=== PATIENT | female | born 1960 | race Caucasian/White ===

== ENCOUNTER 2025-07-16 16:19 | Inpatient (IN) | payer MEDICARE, SELFPAY ==
[2025-07-16] VITALS (8 sets, daily range): BP systolic 122–161; BP diastolic 63–126; BMI 40.4
--- NOTE | 2025-07-16 11:24 | ED.GENMED ---
History of Present Illness
General
Chief Complaint: Flank Pain
Source: patient, records and ambulance crew
Time Seen by Provider: 07/16/25 10:54
History of Present Illness
History of Present Illness:
65-year-old female with past medical history of COPD (on 2 L via nasal cannula chronically), atrial fibrillation, hypertension, hyperlipidemia, CAD, pxm-sajurfl-slrvcebzc diabetes, CLL, previous chronic alcohol use currently residing at [facility] for rehabilitation presenting to the emergency department for a sudden onset of left-sided flank pain that began approximately 2 hours prior to arrival accompanied with some urinary urgency last night but no dysuria or hematuria. Patient was
given Toradol and fentanyl by EMS with complete resolution of her pain. She notes associated nausea with the pain but this is also now resolved. She denies any fevers, chills, rigors, bowel changes although she does have a colostomy to the left
mid abdomen. She states that she has had a urinary tract infection in the past but believes this was when she was 17 or 18 years old. Patient described the pain to be a sharp sudden onset, radiated from the left flank towards the left mid abdomen.
Past History
Past History
ED Past Medical History: Arrthythmia, Asthma, CAD, Cancer, COPD, HTN, Hypercholesterolemia, NIDDM, Hypothyroidism and Psychiatric
ED Past Surgical History: Other (Colostomy)
Social History
Tobacco: Non-smoker
Alcohol: Former
Drug: None
Personal: Single
Living: penitentiary
Employment: Disabled
Review of Systems
Review of Systems
All Other Systems: ROS reviewed and negative except as documented in HPI and ROS
Phy Exam
Physical Exam
Physical Exam:
GENERAL: Alert , in no apparent distress, overweight, appears older than stated age
EYE: clear conjunctiva b/l
HEAD: NCAT
ENT: o/p clr, mmm.
CARDIAC: Regular rate and rhythm .
LUNGS: Clear breath sounds bilaterally, no acute respiratory distress, no wheezes/rales/rhonchi
ABDOMEN: Soft, without focal tenderness, no r/g, no cvat, colostomy to the left mid abdomen without any surrounding erythema, large hernia left abdomen which patient reports is chronic and unchanges. no overlying skin changes
NEUROLOGICAL: Alert and oriented
SKIN: Warm and dry, skin intact.
MUSCULOSKELETAL: No edema, well perfused.
PSYCH: Normal and appropriate interaction.
Scores
Heart Failure Risk
Heart Failure Risk Score: Not Applicable
Heart Score for Chest Pain Patients
STEMI patient?: Not applicable
Withdrawal Assessment of Alcohol
Withdrawal Assessment Completed?: Not applicable
Course
Orders/Labs/Results
Orders:
Orders
07/16/25 11:05
CT Abd/pel Without Iv Or Oral Urgent
Comment:
Reason For Exam: sudden left flank pain
0.9% Sodium Chloride 1000 ml [Nss] 1,000 ml IV BOLUS
07/16/25 11:15
Complete Blood Count/With Diff Urgent
Comprehensive Metabolic Panel Urgent
Lipase Urgent
07/16/25 11:36
Urinalysis Reflex To Culture Urgent
Date Specimen was Collected: 07/16/25
Time Specimen was Collected: 11:29
Urine Microscopic Reflex Cult Urgent
Urine Culture Urgent
GBARIELLA Source: U
Specimen Description:
Date Specimen was Collected: 07/16/25
Time Specimen was Collected: 11:29
07/16/25 12:48
Morphine Sulfate 2 mg .ROUTE .STK-MED ONE
07/16/25 12:54
Morphine Sulfate 2 mg IV NOW STA
07/16/25 15:11
CefTRIAXone [Rocephin] 1,000 mg IV NOW STA
HYDROmorphone [Dilaudid] 1 mg IV NOW STA
07/16/25 15:12
Electrocardiogram (*1) Urgent
Reason for Study: Abdominal Pain
EKG- Treatment ONCE
07/16/25 16:08
Admit/Transfer Patient As Directed
Co-Sign Provider:
Level of Care: Inpatient admission
Assign to:: Medical/Surgical
Physician / Group: sukhi martinez
Diagnosis: pyelonephritis
Reason for Hospitalization: pyelo
Expected length of stay greater than two midnights?: Yes
ELOS- Estimated Length of Stay in days: 3
I certify the patient meets the requirements for IP care: Yes
PRN Pain Medication Management As Directed
May give lesser potent ordered pain med per pt: Yes
preference::
Protocol:: Medication orders for pain may be administered in a
manner that supports deferring to patient preference
when the pt is:
- Requesting an ordered lesser potent pain medication.
Least to most potent pain medications are defined
as: acetaminophen < NSAID < tramadol < opioids
(morphine, oxycodone, hydromorphone).
- Requesting a lesser dose of the same medication IF
ORDERED.
- Requesting a less intrusive route of administration
if both routes are prescribed by the provider (PO <
IV).
07/16/25 16:09
Code Status As Directed
Resuscitation Status: Full Code
07/16/25 16:10
Troponin I Urgent
Abnormal Lab Results
07/16/25 07/16/25
11:15 11:36
RBC 3.99 L 10^6/uL
(4.20-5.40)
MCH 31.1 H pg
(27.0-31.0)
Absolute Monos (auto) 0.7 H 10^3/uL
(0.1-0.6)
Sodium 134 L mmol/L
(135-145)
BUN 18 H mg/dl
(7-17)
Glucose 316 H mg/dl
(70-99)
AST 96 H U/L
(14-36)
ALT 99 H U/L
(0-35)
Total Protein 6.2 L g/dl
(6.3-8.2)
Urine Ketones 1+ A
(Negative)
Ur Occult Blood Reflex 4+ A
(Negative)
Leukocyte Esterase Rfl 2+ A
(Negative)
Urine RBC 80-90 A /HPF
(0-2)
Urine Bacteria (Reflex) Moderate A
(Negative)
Urine Glucose 2+ A
(Negative)
Urine Albumin (Reflex) 3+ A
(Neg - Trace)
07/16/25 11:15
07/16/25 11:15
Vital Signs
Initial and Last Documented VS:
Initial Vital Signs
Temp Pulse Resp BP Pulse Ox
98 F 74 16 122/64 94
07/16/25 10:55 07/16/25 10:55 07/16/25 10:55 07/16/25 10:55 07/16/25 10:55
Last Documented Vital Signs
Temp Pulse Resp BP Pulse Ox
98 F 67 17 129/96 95
07/16/25 10:55 07/16/25 16:45 07/16/25 16:45 07/16/25 16:00 07/16/25 16:45
MDM/Problems Addressed
Differential Diagnosis Includes:
Renal/ureteral colic
Pyelonephritis
Cystitis
Diverticulitis
Pancreatitis
Musculoskeletal back pain
Incarcerated vs strangulated hernia
Atypical ACS presentation
Dissection
GERD/gastritis
MDM/Problems Addressed:
65-year-old female presenting the ER for evaluation of a sudden onset left-sided flank pain accompanied with some urinary symptoms last night, symptoms fully resolved with Toradol and fentanyl by EMS. Patient presently well-appearing and in no
acute distress, hemodynamically stable and reportedly at her baseline. Based off of the sudden onset symptoms combined with the urinary symptoms last night I do suspect renal/ureteral colic to be the most likely diagnosis. Will check labs, urine
and CT imaging. Patient's pain is currently well-controlled will hold off on medications but will treat with IV fluids. Disposition pending.
*Radiology
Radiology exam reviewed: radiology read reviewed
*Pulse Oximetry
SaO2: 94
Nasal Cannula flow liters per minute: 3
Patient hypoxic: no
*EKG
Interpreted by ED Provider?: Yes
Heart Rate: 66
Rate: normal
Rhythm: sinus
Shirley: left axis deviation
*Sap Consultant Interpretation
Rate: normal
Rhythm: sinus
*Critical Care Note
Total Time (30-74mins, 75-104mins- exclusive of procedures): Not Applicable
Data Reviewed
Review of Other/Old Records Reveals: Records
Comment
Comment:
Patient started to have return of pain so an additional 2 mg of morphine ordered for pain control
Patient Management
Discussion with other providers: Hospitalist
Escalation/DeEscalation of care consider admission/obs:
Morphine did initially help patient's pain however pain started to return. CT findings noted for nephrolithiasis but given patient's orthopedic hardware there was artifact that obstructed the UVJ and unable to fully rule out ureteral stone.
Patient had return of pain following the morphine and appears very uncomfortable, questionable UTI. Still question renal/ureteral colic/early pyelonephritis as diagnosis. Given patient is required 3 separate rounds of IV pain medication will admit
for continued pain control and IV antibiotics. Hospitalist team notified and accepts for continued evaluation and treatment.
ED Attending Note
-
Portions of this chart may have been created with voice recognition software.� Occasional wrong word or��sound alike� substitutions may have occurred due to the inherent limitations of voice recognition software.
Discharge Plan
Departure
Patient Disposition: Admit
Date of Disposition: 07/16/25
Time of Disposition: 15:18
Presentation/result/management discussed w/ accepting MD/DO: Hospitalist
Discharge Problem:
Renal colic on left side, Hematuria
Interventions
Interventions:
*Risk Screen - Suicide Last Done: 07/16/25 10:55
*General Assessment Last Done: 07/16/25 10:55
*Neglect/Abuse Screening Last Done: 07/16/25 10:55
*ED- Fall Risk Assessment Last Done: 07/16/25 10:55
*ED COVID-19 Vaccine History Last Done: 07/16/25 10:55
TD-Qmlnga-Cvsiqnepmh Assessment Last Done: 07/16/25 10:55
ED-Female Genitourinary Assessment Last Done: 07/16/25 16:08
[2025-07-16] MEDS: NSS 1000 IV (11:32)
[2025-07-16 11:45] LABS: Urine Character Cloudy (Clear)
[2025-07-16 11:48] LABS: Hematocrit 37.4 % (37.0-47.0); Hemoglobin 12.4 g/dL (12.0-16.0); Mean Corp Hgb Conc. 33.2 g/dL (33.0-37.0); Mean Corpuscular Volume 93.7 fL (81.0-99.0); Nucleated Red Blood Cells % 0 %; Platelet Count 189 10^3/uL (130-400); Red Cell Dist. Width 12.2 % (11.5-14.5)
[2025-07-16 12:02] LABS: Urine Red Blood Cell 80-90 /HPF (0-2); Urine White Cell 0-2 /HPF (0-5)
[2025-07-16 12:07] LABS: ALT (SGPT) 99 U/L (0-35); AST (SGOT) 96 U/L (14-36); Albumin 4.2 g/dl (3.5-5.0); Alkaline Phosphatase 61 U/L (38-126); Blood Urea Nitrogen 18 mg/dl (7-17); Calcium 9.8 mg/dl (8.4-10.2); Carbon Dioxide 30 mmol/L (22-30); Chloride 100 mmol/L (98-107); Estimated Creatinine Clearance 121 ml/min; Glucose 316 mg/dl (70-99); Lipase 88 U/L (23-300); Potassium 4.4 mmol/L (3.5-5.1); Sodium 134 mmol/L (135-145); Total Protein 6.2 g/dl (6.3-8.2); eGFR > 60.00
[2025-07-16] MEDS: MORPHINE SULFATE 2 MG IV (12:54)
--- NOTE | 2025-07-16 15:50 | HPS.HSE ---
Family Physician
-
Family Physician: Skyler Saez
Chief Complaint
-
left flank pain
History of Present Illness
65-year-old female with past medical history of COPD (on 2 L via nasal cannula chronically), atrial fibrillation, hypertension, hyperlipidemia, CAD, nxe-syvwjds-inpmpevlr diabetes, CLL, previous chronic alcohol use currently residing at [facility] for rehabilitation presenting to the emergency department for a sudden onset of left-sided flank pain. patient noted hematuria, urinary urgency and frequency since last night. today she felt the left flank pain associated with nausea.
patient stated blood in the urine. denied fever, chills, chest pain,sob. stated OLIVA. denied dizzy or syncope. denied abdominal diarrhea or vomiting.
Patient received a dose of ceftriaxone, Dilaudid, morphine, normal saline in ER. Admitting for further management
Medical History
Past Medical History
Past Medical History: Reports Other
Additional Past Medical History:
TIA
CLL
COPD
Respiratory failure
Fibrillation
Chron's disease
Diverticulitis
Type 2 diabetes
Hyperlipidemia
Hypertension
Asthma
Anxiety
Past Surgical History: Reports Other
Additional Past Surgical History:
Colostomy
Bilateral hip replacement
Social History
Tobacco: Former Smoker
Alcohol: Former
Drug: None
Living: Care Home
Family History
Family History: Not pertinent
Allergies / Home Medications
Allergies reflects when Allergies were last updated in [facility].
Home Medications with original date entered in [facility]
Allergy/Medication List:
Allergies
Allergy/AdvReac Type Severity Reaction Status Date / Time
No Known Allergies Allergy Unverified 07/16/25 10:55
Review of Systems
-
Constitutional: Reports No Symptoms
EENT: Reports No Symptoms
Respiratory: Reports No Symptoms
Cardiac: Reports No Symptoms
Abdomen/GI: Reports No Symptoms
: Reports Dysuria, Frequency, Flank Pain, Urgency and Other
Musculoskeletal: Reports No Symptoms
Skin: Reports No Symptoms
Neurological: Reports No Symptoms
Endocrine: Reports No Symptoms
Hematologic/Lymphatic: Reports No Symptoms
Psych: Reports No Symptoms
Physical Exam
Vital Signs
Vital Signs
Temp Pulse Resp BP Pulse Ox
98 F 64 19 157/78 97
07/16/25 10:55 07/16/25 14:15 07/16/25 14:15 07/16/25 14:03 07/16/25 14:15
Physical Exam
General: Well Developed, Well Nourished and No Apparent Distress
HEENT: NormoCephalic, Moist mucous membranes and Atraumatic
Respiratory: Clear
Cardiac: S1/S2 and Regular Rhythm; No Murmur or Rub
GI: Soft, Non Tender, Non Distended and Normal Bowel Sounds; No Organomegaly
Rectal: Deferred by Provider
Musculoskeletal: No Clubbing, No Cyanosis and No Edema
Skin: No Rash
Neuro: AO x 3 and Nonfocal/grossly intact
Psych: Calm
Laboratory Results
-
07/16/25 11:15
07/16/25 11:15
Laboratory Results
Total Bilirubin 0.7 mg/dl (0.2-1.3) 07/16/25 11:15
AST 96 U/L (14-36) H 07/16/25 11:15
ALT 99 U/L (0-35) H 07/16/25 11:15
Alkaline Phosphatase 61 U/L (38-126) 07/16/25 11:15
Lipase 88 U/L (23-300) 07/16/25 11:15
Data Reviewed
-
CT Scan: Report Reviewed by me
Lab Data: Labs Reviewed by me
Impression/Plan
-
# Hematuria secondary to early pyelonephritis
- CT abdomen pelvis with impression of Multiple abdominal wall hernias, as described.No evidence of bowel incarceration or obstruction.Left lateral colostomy.No acute inflammatory process within the abdomen or pelvis.1 to 2 mm nonobstructing
intrarenal calculus on the left. No obstructive uropathy.Metal streak artifact related to bilateral hip replacements limits full visualization of the pelvis, including the bladder and ureterovesical junction.Fatty infiltration of liver.Band of
consolidation in the posterior medial left lung base, suggesting segmental and/or subsegmental collapse. Age indeterminate, though felt to be chronic.Nonspecific bilateral prominent inguinal lymph nodes, measuring up to 12 mm short axis. Likely
reactive.No vertebral compression deformity. Degenerative disc disease. Facet arthrosis. Possible subtle old fracture deformity of the S3.Moderate soft tissue stranding and hazy attenuation of the deep subcutaneous fat along the left posterolateral
margin of the abdomen. Exact etiology uncertain. Possible asymmetric edema or deep subcutaneous contusion in the proper clinical setting. No focal collection or abscess.
- IV ceftriaxone continue
- Tylenol as needed for fever or pain
- Dilaudid p.o. for pain
- Urine culture pending
# Transaminitis
- Continue to monitor
# Chronic hypoxic respiratory failure on 2 L baseline
# History of COPD/asthma
- Patient not in acute exacerbation
- Nebs from home continued
-Singulair,prednisone continued
# History of coronary artery disease
# Hypertension/hyperlipidemia
# History of TIA
-statin continued
# Paroxysmal A-fib
- Obtain EKG
-eliquis, sotalol continued
# History of Crohn's/diverticulitis
- Colostomy
# Type 2 diabetes
- Sliding scale
-CHO diet
# DVT prophylaxis
-on eliquis
# CODE STATUS
-full code
[2025-07-16] MEDS: ROCEPHIN 1000 MG IV (16:01)
[2025-07-16] MEDS: DILAUDID 1 MG IV (16:01)
--- NOTE | 2025-07-16 16:05 | W.PN.UPDATE ---
Update Note
Progress Note Update
This note serves as an addendum to the H&P by fence installer foreman HEMA�
Kelli ARINA
HPI
65F from [facility] at [facility] with Lt lateral colostomy, multiple abdominal wall hernias, DM, HX Prx AF on Eliquis, 2 l O2 depedent COPD, HLD, CAD seen at ER:
- sudden onset of left-sided flank pain that began approximately 2 hours prior to arrival
- some urinary urgency last night but no dysuria or hematuria.
- was given Toradol and fentanyl by EMS with complete resolution of her pain.
- associated nausea with the pain but this is also now resolved.
ROS
denies any fevers, chills, rigors, bowel changes although she does have a colostomy to the left mid abdomen.
Vital Signs
Temp Pulse Resp BP Pulse Ox
98 F 64 19 157/78 97
07/16/25 10:55 07/16/25 14:15 07/16/25 14:15 07/16/25 14:03 07/16/25 14:15
PE
Morbidly Obese BMI 41.2
Gen: not toxic
Neck: supple
Lungs: CTA
Cor: RRR S1 s2
Abdomen:�Soft, without focal tenderness, no r/g, no cvat, colostomy to the left mid abdomen
CEILING INSULATION BLOWER: AAO3
MS: no edema
Psych: Normal and appropriate interaction.
Laboratory Tests
07/16/25
11:15
WBC 8.7
Sodium 134 L
BUN 18 H
Creatinine 0.6
eGFR > 60.00
[address]/pel Without Iv Or Oral
- Multiple abdominal wall hernias, as described. No evidence of bowel incarceration or obstruction.
- Left lateral colostomy.
- No acute inflammatory process within the abdomen or pelvis.
- 1 to 2 mm nonobstructing intrarenal calculus on the left. No obstructive uropathy.
- Metal streak artifact related to bilateral hip replacements limits full visualization of the pelvis, including the bladder and ureterovesical junction.
- Fatty infiltration of liver.
- Band of consolidation in the posterior medial left lung base, suggesting segmental and/or subsegmental collapse. Age indeterminate, though felt to be chronic.
- Nonspecific bilateral prominent inguinal lymph nodes, measuring up to 12 mm short axis. Likely reactive.
- No vertebral compression deformity. Degenerative disc disease. Facet arthrosis. Possible subtle old fracture deformity of the S3.
- Moderate soft tissue stranding and hazy attenuation of the deep subcutaneous fat along the left posterolateral margin of the abdomen. Exact etiology uncertain. Possible asymmetric edema or deep subcutaneous contusion in the proper clinical
setting. No focal collection or abscess.
No prior DH or hospitalist admission:
ASSESSMENT & PLAN
Abrupt onset of acute Lt flank pain
Diff origin - Lt Renal colic vs. Inflamed moderate deep soft subcutaneous fat along the left posterolateral abdomen - requiring multiple rounds IV pain Meds
- Urinary urgency + acute left-sided flank pain without tender Lt CVA + Microcoric hematuria with abn UA concerning for complicated UTI
- 1 to 2 mm nonobstructing intrarenal calculus on the left- WITHOUT obstructive uropathy
- NO CT evidence of BWO
- Empiric IV CFTZ and f/u UCx
- PRN pain control: PRN narcotics
HX Prx AF on Eliquis
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
2 l O2 dependent COPD HX
- frequent steroids need
- cont. all OP Meds
Hyperglycemia
DMT2
- c/w ADMINISTRATIVE NURSING SUPERVISOR Meds
- add ISS low
Morbidly Obese BMI 41.2
Known PMX
Chr Oxycodone PRN dependent pain
HLD
CAD
Lt lateral colostomy, multiple abdominal wall hernia
HX Crohn
HX ETOH use disorder
DVT Px: ADMINISTRATIVE NURSING SUPERVISOR Eliquis
Full code
IP MS
[2025-07-16 16:58] LABS: Troponin I < 0.012 ng/ml
[2025-07-16 18:07] LABS: Glucose - Point of Care 190 mg/dl (70-99)
[2025-07-16] MEDS: CRESTOR PO (19:09)
[2025-07-16] MEDS: BETAPACE PO (19:10)
[2025-07-16] MEDS: NOVOLOG FLEXPEN-LOW RESISTANCE 1 UNITS SC (19:12)
[2025-07-16] MEDS: DILAUDID 0.5 MG IV (20:17)
[2025-07-16] MEDS: ZOFRAN 4 MG IV (20:18)
[2025-07-16 21:37] LABS: Glucose - Point of Care 198 mg/dl (70-99)
[2025-07-16] MEDS: ELIQUIS 5 MG PO (22:00)
[2025-07-16] MEDS: SINGULAIR 10 MG PO (22:00)
[2025-07-16] MEDS: TYLENOL 650 MG PO (23:25)
[2025-07-17] MEDS: BETAPACE 80 MG PO ×2 (05:24→17:46)
[2025-07-17] MEDS: ROXICODONE 5 MG PO ×2 (05:26→20:25)
[2025-07-17] MEDS: SYMBICORT 160/4.5 MCG INHALER 2 PUFF INH ×2 (07:19→17:47)
[2025-07-17] MEDS: SPIRIVA RESPIMAT 2.5 MCG 2 PUFF INH (07:19)
[2025-07-17 07:57] LABS: ALT (SGPT) 88 U/L (0-35); AST (SGOT) 85 U/L (14-36); Albumin 3.9 g/dl (3.5-5.0); Alkaline Phosphatase 56 U/L (38-126); Blood Urea Nitrogen 17 mg/dl (7-17); Calcium 9.1 mg/dl (8.4-10.2); Carbon Dioxide 27 mmol/L (22-30); Chloride 103 mmol/L (98-107); Estimated Creatinine Clearance 120 ml/min; Glucose 238 mg/dl (70-99); Potassium 4.5 mmol/L (3.5-5.1); Sodium 137 mmol/L (135-145); Total Protein 5.7 g/dl (6.3-8.2); eGFR > 60.00
[2025-07-17 08:08] LABS: Glucose - Point of Care 205 mg/dl (70-99)
[2025-07-17 08:26] VITALS: BP 110/61
--- NOTE | 2025-07-17 08:46 | W.PN.HOSP.TC ---
Today's Communication/Plan
-
Continue antibiotic, pending culture
Assessment / Plan
Assessment / Plan
Impression:
Patient is a 65-year-old female with past medical history of COPD (on 2 L via nasal cannula chronically), atrial fibrillation, hypertension, hyperlipidemia, CAD, sjt-wsyllam-ehnjiqoib diabetes, CLL, previous chronic alcohol use currently residing at
[facility] for rehabilitation presenting to the emergency department for a sudden onset of left-sided flank pain. patient noted hematuria, urinary urgency and frequency since last night. today she felt the left flank pain associated with nausea.
patient stated blood in the urine. denied fever, chills, chest pain,sob. stated OLIVA. denied dizzy or syncope. denied abdominal diarrhea or vomiting.
Ct abdomen and pelvis showed:
- Multiple abdominal wall hernias, as described.No evidence of bowel incarceration or obstruction.Left lateral colostomy.No acute inflammatory process within the abdomen or pelvis.1 to 2 mm nonobstructing intrarenal calculus on the left. No
obstructive uropathy.Metal streak artifact related to bilateral hip replacements limits full visualization of the pelvis, including the bladder and ureterovesical junction.Fatty infiltration of liver.Band of consolidation in the posterior medial
left lung base, suggesting segmental and/or subsegmental collapse. Age indeterminate, though felt to be chronic.Nonspecific bilateral prominent inguinal lymph nodes, measuring up to 12 mm short axis. Likely reactive.No vertebral compression
deformity. Degenerative disc disease. Facet arthrosis. Possible subtle old fracture deformity of the S3.Moderate soft tissue stranding and hazy attenuation of the deep subcutaneous fat along the left posterolateral margin of the abdomen. Exact
etiology uncertain. Possible asymmetric edema or deep subcutaneous contusion in the proper clinical setting. No focal collection or abscess.
Patient received a dose of ceftriaxone, Dilaudid, morphine, normal saline in ER. Admitting for further management.
Assessment/plan:
Sepsis secondary to pyelonephritis
Patient meets sepsis criteria on admission with fever and tachycardia
Source of infection with urine also patient has hematuria secondary to early pyelonephritis
CT abdomen pelvis done in the ER with multiple chronic finding but no acute finding, see report above.
Continue IV ceftriaxone
Pain and nausea control
Pending urine culture
Transaminitis
- Continue to monitor
Chronic hypoxic respiratory failure on 2 L baseline
History of COPD/asthma
- Patient not in acute exacerbation
- Nebs from home continued
-Singulair,prednisone continued
History of coronary artery disease/hyperlipidemia
Continue statin
History of TIA
-statin continued
History of paroxysmal A-fib
Currently sinus rhythm
-Eliquis, sotalol continued
History of Crohn's/diverticulitis
S/P Colostomy
History of diabetes mellitus
Continue home medication
Insulin sliding scale
Diabetic diet
Hemoglobin A1c 8.4
CODE STATUS: Full code
DVT prophylaxis: Eliquis
Diet: Regular diet
Disposition: Antibiotic, pending culture
Total time spent on today's encounter was 65 minutes which included time spent in counseling the patient/family regarding diagnosis and treatment plan as listed above, goals of care, and symptom management. Case was discussed with nursing staff,
specialists, and care coordinators/case management. All labs and imaging personally reviewed by me. Remainder the time spent in detailed review of previous records, lab data, imaging, and other medical provider documentation.
Anticipated Discharge: 24 - 48 hours
Subjective/Interval History
-
Date of Service: July 17, 2025
Patient seen and examined at bedside, denies any chest pain or shortness of breath, coughing and still complaining of left leg pain, back pain.
Objective Data
-
Labs:
Laboratory Results
07/17/25
05:58
Sodium 137
Potassium 4.5
Chloride 103
Carbon Dioxide 27
BUN 17
Creatinine 0.6
Glucose 238 H
Calcium 9.1
Total Bilirubin 0.7
AST 85 H
ALT 88 H
Alkaline Phosphatase 56
Vital Signs:
Vital Signs
Temp Pulse Resp BP Pulse Ox
98 F 81 23 110/61 96
07/17/25 08:26 07/17/25 08:26 07/17/25 08:26 07/17/25 08:26 07/17/25 08:26
I&O
07/16/25 07/17/25 07/18/25
06:59 06:59 06:59
Intake Total 240 / 240
Balance 240 / 240
Physical Exam
-
General: Well Developed, Well Nourished, No Apparent Distress and Comfortable
HEENT: Normocephalic, Atraumatic, Moist Mucous Membranes, No Ptosis, PERRLA and Nose Appears Normal
Respiratory: Rales, Rhonchi and Non Labored Respirations
Cardiac: Regular Rhythm and S1/S2
Breast: Deferred by me
GI: Soft, Normal Bowel Sounds and Tender (Left flank)
Genito-urinary: No Costovertebral Tender
Musculoskeletal: No Clubbing, No Cyanosis and No Edema
Skin: Warm
Neuro: Awake, Alert, Oriented, AO x 3 and No Motor Deficits
Psych: Calm
Data Reviewed
-
Diagnostic Radiology: Image personally visualized and interpreted and Report Reviewed by me
CT Scan: Image personally visualized and interpreted and Report Reviewed by me
Ultrasound: Image personally visualized and interpreted and Report Reviewed by me
MRI: Image personally visualized and interpreted and Report Reviewed by me
Medical Tests (Nuc Med, Echo etc): Image personally visualized and interpreted and Report Reviewed by me
Labs: Labs Reviewed by me
Old Records: Reviewed
[2025-07-17] MEDS: TIGAN 200 MG IM (09:00)
[2025-07-17] MEDS: DALIRESP 500 MCG PO (09:00)
[2025-07-17] MEDS: ELIQUIS 5 MG PO ×2 (09:00→20:27)
[2025-07-17] MEDS: DELTASONE 5 MG PO (09:00)
[2025-07-17] MEDS: NOVOLOG FLEXPEN-LOW RESISTANCE 2 UNITS SC ×2 (09:09→17:48)
[2025-07-17] MEDS: DILAUDID 0.5 MG IV ×3 (09:17→21:10)
[2025-07-17] MEDS: TYLENOL 650 MG PO ×2 (10:51→18:05)
[2025-07-17 11:55] LABS: Glycohemoglobin (HgbA1c) 8.4 % (4.0-5.6)
[2025-07-17 12:02] LABS: Glucose - Point of Care 259 mg/dl (70-99)
[2025-07-17 12:12] VITALS: BP 98/58
[2025-07-17] MEDS: NOVOLOG FLEXPEN-LOW RESISTANCE 3 UNITS SC (12:38)
[2025-07-17 16:12] VITALS: BP 109/65
[2025-07-17 16:37] LABS: Glucose - Point of Care 221 mg/dl (70-99)
[2025-07-17] MEDS: CRESTOR 10 MG PO (17:46)
[2025-07-17] MEDS: STERILE WATER FOR INJECTION 10 ML IV (17:47)
[2025-07-17] MEDS: ROCEPHIN 1000 MG IV (17:48)
[2025-07-17 19:54] VITALS: BP 114/60
[2025-07-17] MEDS: SINGULAIR 10 MG PO (20:27)
[2025-07-17 21:29] LABS: Glucose - Point of Care 209 mg/dl (70-99)
[2025-07-17 23:47] VITALS: BP 116/62
[2025-07-18 03:25] VITALS: BP 118/60
[2025-07-18] MEDS: BETAPACE 80 MG PO ×2 (05:16→17:23)
[2025-07-18] MEDS: DILAUDID 0.5 MG IV ×4 (05:20→22:24)
[2025-07-18 07:00] VITALS: BP 102/45
[2025-07-18 07:47] LABS: Glucose - Point of Care 190 mg/dl (70-99)
[2025-07-18 07:52] LABS: ALT (SGPT) 86 U/L (0-35); AST (SGOT) 78 U/L (14-36); Albumin 3.5 g/dl (3.5-5.0); Alkaline Phosphatase 54 U/L (38-126); Blood Urea Nitrogen 18 mg/dl (7-17); Calcium 8.7 mg/dl (8.4-10.2); Carbon Dioxide 29 mmol/L (22-30); Chloride 99 mmol/L (98-107); Estimated Creatinine Clearance 120 ml/min; Glucose 191 mg/dl (70-99); Potassium 4.4 mmol/L (3.5-5.1); Sodium 134 mmol/L (135-145); Total Protein 5.4 g/dl (6.3-8.2); eGFR > 60.00
[2025-07-18] MEDS: SPIRIVA RESPIMAT 2.5 MCG 2 PUFF INH (08:15)
[2025-07-18] MEDS: SYMBICORT 160/4.5 MCG INHALER 2 PUFF INH ×2 (08:16→18:05)
[2025-07-18] MEDS: DELTASONE 5 MG PO (08:53)
[2025-07-18] MEDS: DALIRESP 500 MCG PO (08:53)
[2025-07-18] MEDS: ELIQUIS 5 MG PO ×2 (08:53→21:33)
[2025-07-18] MEDS: NOVOLOG FLEXPEN-LOW RESISTANCE 1 UNITS SC (08:54)
[2025-07-18] MEDS: TYLENOL 650 MG PO ×2 (08:58→16:33)
[2025-07-18 11:00] VITALS: BP 109/75
[2025-07-18] MEDS: ROXICODONE 5 MG PO (11:19)
[2025-07-18] MEDS: TIGAN 200 MG IM ×2 (11:20→17:37)
[2025-07-18 11:27] LABS: Hematocrit 37.4 % (37.0-47.0); Hemoglobin 12.0 g/dL (12.0-16.0); Mean Corp Hgb Conc. 32.1 g/dL (33.0-37.0); Mean Corpuscular Volume 97.1 fL (81.0-99.0); Nucleated Red Blood Cells % 0 %; Platelet Count 146 10^3/uL (130-400); Red Cell Dist. Width 12.4 % (11.5-14.5)
--- NOTE | 2025-07-18 11:34 | W.PN.HOSP.TC ---
Today's Communication/Plan
-
Urology consult, x-ray abdomen.
Assessment / Plan
Assessment / Plan
Impression:
Patient is a 65-year-old female with past medical history of COPD (on 2 L via nasal cannula chronically), atrial fibrillation, hypertension, hyperlipidemia, CAD, aom-linhtpq-aixqdwqzf diabetes, CLL, previous chronic alcohol use currently residing at
[facility] for rehabilitation presenting to the emergency department for a sudden onset of left-sided flank pain. patient noted hematuria, urinary urgency and frequency since last night. today she felt the left flank pain associated with nausea.
patient stated blood in the urine. denied fever, chills, chest pain,sob. stated OLIVA. denied dizzy or syncope. denied abdominal diarrhea or vomiting.
Ct abdomen and pelvis showed:
- Multiple abdominal wall hernias, as described.No evidence of bowel incarceration or obstruction.Left lateral colostomy.No acute inflammatory process within the abdomen or pelvis.1 to 2 mm nonobstructing intrarenal calculus on the left. No
obstructive uropathy.Metal streak artifact related to bilateral hip replacements limits full visualization of the pelvis, including the bladder and ureterovesical junction.Fatty infiltration of liver.Band of consolidation in the posterior medial
left lung base, suggesting segmental and/or subsegmental collapse. Age indeterminate, though felt to be chronic.Nonspecific bilateral prominent inguinal lymph nodes, measuring up to 12 mm short axis. Likely reactive.No vertebral compression
deformity. Degenerative disc disease. Facet arthrosis. Possible subtle old fracture deformity of the S3.Moderate soft tissue stranding and hazy attenuation of the deep subcutaneous fat along the left posterolateral margin of the abdomen. Exact
etiology uncertain. Possible asymmetric edema or deep subcutaneous contusion in the proper clinical setting. No focal collection or abscess.
Patient received a dose of ceftriaxone, Dilaudid, morphine, normal saline in ER. Admitting for further management.
Urine culture came back negative but patient still having left flank pain.
urine culture came back negative but the patient still having left flank pain.
X-ray abdomen ordered, urology consult
Assessment/plan:
Sepsis secondary to pyelonephritis
Patient meets sepsis criteria on admission with fever and tachycardia
Source of infection with urine also patient has hematuria secondary to early pyelonephritis
CT abdomen pelvis done in the ER with multiple chronic finding but no acute finding, see report above.
Continue IV ceftriaxone
Pain and nausea control
Pending urine culture
07/18
urine culture came back negative but the patient still having left flank pain.
X-ray abdomen ordered, urology consult
Transaminitis
- Continue to monitor
Chronic hypoxic respiratory failure on 2 L baseline
History of COPD/asthma
- Patient not in acute exacerbation
- Nebs from home continued
-Singulair,prednisone continued
History of coronary artery disease/hyperlipidemia
Continue statin
History of TIA
-statin continued
History of paroxysmal A-fib
Currently sinus rhythm
-Eliquis, sotalol continued
History of Crohn's/diverticulitis
S/P Colostomy
History of diabetes mellitus
Continue home medication
Insulin sliding scale
Diabetic diet
Hemoglobin A1c 8.4
CODE STATUS: Full code
DVT prophylaxis: Eliquis
Diet: Regular diet
Disposition: Urology consult, x-ray abdomen.
Family communication: Discussed with brother at bedside.
Total time spent on today's encounter was 65 minutes which included time spent in counseling the patient/family regarding diagnosis and treatment plan as listed above, goals of care, and symptom management. Case was discussed with nursing staff,
specialists, and care coordinators/case management. All labs and imaging personally reviewed by me. Remainder the time spent in detailed review of previous records, lab data, imaging, and other medical provider documentation.
Anticipated Discharge: > 48 hours
Subjective/Interval History
-
Date of Service: July 18, 2025
Patient seen and examined at bedside, denies any chest pain or shortness of breath, coughing and still complaining of left flank pain, back pain.
Objective Data
-
Labs:
Laboratory Results
07/18/25 07/18/25
06:53 06:54
WBC 5.1
Hgb 12.0
Hct 37.4
Plt Count 146 D
Sodium 134 L
Potassium 4.4
Chloride 99
Carbon Dioxide 29
BUN 18 H
Creatinine 0.6
Glucose 191 H
Calcium 8.7
Total Bilirubin 0.7
AST 78 H
ALT 86 H
Alkaline Phosphatase 54
Vital Signs:
Vital Signs
Temp Pulse Resp BP Pulse Ox
97.8 F 82 20 109/75 97
07/18/25 11:00 07/18/25 11:00 07/18/25 11:00 07/18/25 11:00 07/18/25 11:00
I&O
07/17/25 07/18/25 07/19/25
06:59 06:59 06:59
Intake Total 240 / 240 480 / 480
Balance 240 / 240 480 / 480
Physical Exam
-
General: Well Developed, Well Nourished, No Apparent Distress and Comfortable
HEENT: Normocephalic, Atraumatic, Moist Mucous Membranes, No Ptosis, PERRLA and Nose Appears Normal
Respiratory: Rales, Rhonchi and Non Labored Respirations
Cardiac: Regular Rhythm and S1/S2
Breast: Deferred by me
GI: Soft, Tender (Left flank) and Other (Umbilical hernia, colostomy)
Genito-urinary: No Costovertebral Tender
Musculoskeletal: No Clubbing, No Cyanosis and No Edema
Skin: Warm
Neuro: Awake, Alert, Oriented, AO x 3 and No Motor Deficits
Psych: Anxious
Data Reviewed
-
Diagnostic Radiology: Image personally visualized and interpreted and Report Reviewed by me
CT Scan: Image personally visualized and interpreted and Report Reviewed by me
Ultrasound: Image personally visualized and interpreted and Report Reviewed by me
MRI: Image personally visualized and interpreted and Report Reviewed by me
Medical Tests (Nuc Med, Echo etc): Image personally visualized and interpreted and Report Reviewed by me
Labs: Labs Reviewed by me
Old Records: Reviewed
[2025-07-18 11:52] LABS: Glucose - Point of Care 215 mg/dl (70-99)
[2025-07-18] MEDS: FLUSH (NSS) 2 FLUSH IV (12:52)
[2025-07-18] MEDS: NOVOLOG FLEXPEN-LOW RESISTANCE 2 UNITS SC ×2 (12:55→17:19)
[2025-07-18 15:00] VITALS: BP 116/66
[2025-07-18 16:42] LABS: Glucose - Point of Care 202 mg/dl (70-99)
[2025-07-18] MEDS: CRESTOR 10 MG PO (17:23)
[2025-07-18] MEDS: ROCEPHIN 1000 MG IV (17:23)
[2025-07-18] MEDS: STERILE WATER FOR INJECTION 10 ML IV (17:24)
--- NOTE | 2025-07-18 18:54 | CONS.URO ---
Consultation
-
Date/Time Consultation Performed: 1220 07/18/25
Performing Provider: Peffer
Reason for Consultation: Flank pain
Medical History
History of Present Illness
65F with PMH COPD (on 2 L via nasal cannula chronically), atrial fibrillation, hypertension, hyperlipidemia, CAD, oqe-repxvts-bovzowkqd diabetes, CLL, previous chronic alcohol use currently residing at [facility] for rehabilitation
Presenting to the emergency department for a sudden onset of left-sided flank pain. Patient noted hematuria, urinary urgency and frequency 24hrs prior to admission.
Left flank pain associated with nausea. She denied fever, chills, chest pain
CT scan showed small L renal stones but no hydronephrosis or obstruction
She was admitted for fevers and clinical sepsis
UA was positive for infection
Urine culture 100k mixed jimbo
Over 2 days of treatment she has had persistent L flank/abdominal pain of unclear source
Urology asked to comment
Past Medical History
Past Medical History: Other (as above)
Social History
Tobacco: Non-smoker
Living: Long Term
Family History
Family History: Reviewed & Not Pertinent
Allergies/Home Medications
Allergies
Allergy/AdvReac Type Severity Reaction Status Date / Time
No Known Allergies Allergy Unverified 07/16/25 10:55
Home Medications
�Medication �Instructions �Recorded �Confirmed �Type
Chlorophyll 60 mg PO DAILY Supplement 07/16/25 07/16/25 History
acetaminophen 325 mg tablet 650 mg PO Q4H PRN mild pain 07/16/25 07/16/25 History
albuterol sulfate 90 mcg/actuation 1 inh inhalation R Q8HPRN PRN sob 07/16/25 07/16/25 History
aerosol inhaler
alprazolam 0.25 mg tablet 0.25 mg PO Q83FLUD PRN anxiety 07/16/25 07/16/25 History
apixaban 5 mg tablet (Eliquis) 5 mg PO BID Blood Clot 07/16/25 07/16/25 History
Prevention/Tx
azithromycin 250 mg tablet 250 mg PO MOWEFR Lung/Breathing 07/16/25 07/16/25 History
Issues
bisacodyl 10 mg rectal suppository 10 mg WI DAILYPRN PRN if MOM 07/16/25 07/16/25 History
ineffective
carboxymethylcellulose sodium 0.5 1 drp BOTH EYES TIDPRN PRN dry eyes 07/16/25 07/16/25 History
% eye drops (Refresh Tears)
cholecalciferol (vitamin D3) 25 25 mcg PO DAILY Supplement 07/16/25 07/16/25 History
mcg (1,000 unit) tablet
cyanocobalamin (vitamin B-12) 1,000 mcg PO DAILY Supplement 07/16/25 07/16/25 History
1,000 mcg tablet
fluticasone fur. 200 mcg-umeclid 1 inh inhalation R DAILY 07/16/25 07/16/25 History
62.5 mcg-vilant 25 mcg Lung/Breathing Issues
inhalat.powder (Trelegy Ellipta)
fluticasone propionate 50 1 spray intranasal DAILY PRN 07/16/25 07/16/25 History
mcg/actuation nasal allergies
spray,suspension
guaifenesin 600 mg tablet, 600 mg PO Q12H PRN congestion 07/16/25 07/16/25 History
extended release 12 hr
ibuprofen 200 mg tablet 200 mg PO Q8H PRN mild pain 07/16/25 07/16/25 History
magnesium hydroxide 400 mg/5 mL 30 ml PO DAILY PRN no BM in 3 days 07/16/25 07/16/25 History
oral suspension (Milk of Magnesia)
montelukast 10 mg tablet 10 mg PO HS Allergies 07/16/25 07/16/25 History
oxycodone 5 mg tablet 5 mg PO Q6HPRN PRN moderate pain 07/16/25 07/16/25 History
prednisone 5 mg tablet 5 mg PO DAILY ANTIINFLAMMATION 07/16/25 07/16/25 History
roflumilast 500 mcg tablet 500 mcg PO DAILY ASTHMA 07/16/25 07/16/25 History
rosuvastatin 10 mg tablet 10 mg PO QPM High Cholesterol 07/16/25 07/16/25 History
simethicone 180 mg capsule 180 mg PO DAILYPRN PRN gas 07/16/25 07/16/25 History
sotalol 80 mg tablet 80 mg PO Q12H Arrhythmia 07/16/25 07/16/25 History
therapeutic multivitamin 1 tab PO DAILY Supplement 07/16/25 07/16/25 History
Physical Exam
Vital Signs
Vital Signs
Temp Pulse Resp BP Pulse Ox
97.7 F 66 18 116/66 97
07/18/25 15:00 07/18/25 18:06 07/18/25 18:06 07/18/25 15:00 07/18/25 18:06
Lab / Testing Results
Laboratory Results
07/18/25 06:53
07/18/25 06:54
Physical Exam
General: Well Developed, Well Nourished and Pain
Respiratory: Clear, Non Labored Respirations and Other (on O2)
GI: Soft and Non Tender
Genito-urinary: No Costovertebral Tend
Neuro: AO x 3
Psych: Calm and Intact Judgement
Assessment / Plan
-
65F admitted with fever and sepsis likely due to complicated UTI
Significant L flank pain on admission which has not improved with 2 days on abx
- CTAP shows nonobstructing renal stones, no hydronephrosis. CT scan somewhat limited in eval of distal ureter at the UVJ due to hip prosthesis
- Additional imaging obtained 07/18 with KUB and renal/bladder US, neither of which suggested a distal ureteral stone. No hydronephrosis and b/l urine jets noted on US. No evidence to suggest obstructive uropathy
- L flank pain is most likely due to ascending UTI/pyelopnephritis if not from unrelated other cause
- Flank pain with pyelonephritis is sometimes severe and can take 3-5 days to start improving
- Continue abx course, pain control
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
[2025-07-18 19:00] VITALS: BP 100/59
[2025-07-18 21:49] LABS: Glucose - Point of Care 228 mg/dl (70-99)
[2025-07-18] MEDS: SINGULAIR 10 MG PO (22:13)
[2025-07-18 23:00] VITALS: BP 114/68
[2025-07-19] VITALS (8 sets, daily range): BP systolic 96–133; BP diastolic 54–70; PULSE 71–73; O2SAT 97; BMI 40.4
[2025-07-19] MEDS: DILAUDID 0.5 MG IV ×2 (03:13→07:40)
[2025-07-19] MEDS: BETAPACE 80 MG PO ×2 (05:37→17:29)
[2025-07-19 06:45] LABS: Hematocrit 35.0 % (37.0-47.0); Hemoglobin 11.5 g/dL (12.0-16.0); Mean Corp Hgb Conc. 32.9 g/dL (33.0-37.0); Mean Corpuscular Volume 94.9 fL (81.0-99.0); Platelet Count 131 10^3/uL (130-400); Red Cell Dist. Width 12.2 % (11.5-14.5)
[2025-07-19 07:20] LABS: ALT (SGPT) 74 U/L (0-35); AST (SGOT) 51 U/L (14-36); Albumin 3.4 g/dl (3.5-5.0); Alkaline Phosphatase 61 U/L (38-126); Blood Urea Nitrogen 13 mg/dl (7-17); Calcium 8.6 mg/dl (8.4-10.2); Carbon Dioxide 30 mmol/L (22-30); Chloride 99 mmol/L (98-107); Estimated Creatinine Clearance 120 ml/min; Glucose 174 mg/dl (70-99); Potassium 4.1 mmol/L (3.5-5.1); Sodium 134 mmol/L (135-145); Total Protein 5.3 g/dl (6.3-8.2); eGFR > 60.00
[2025-07-19] MEDS: SPIRIVA RESPIMAT 2.5 MCG 2 PUFF INH (07:34)
[2025-07-19] MEDS: SYMBICORT 160/4.5 MCG INHALER 2 PUFF INH ×2 (07:34→20:32)
[2025-07-19] MEDS: DALIRESP 500 MCG PO (07:37)
[2025-07-19] MEDS: DELTASONE 5 MG PO (07:37)
[2025-07-19] MEDS: ELIQUIS 5 MG PO ×2 (07:37→20:15)
[2025-07-19] MEDS: FLUSH (NSS) 2 FLUSH IV (07:42)
[2025-07-19 08:10] LABS: Glucose - Point of Care 175 mg/dl (70-99)
--- NOTE | 2025-07-19 08:50 | W.PN.URO.CBU ---
Today's Communication / Plan
-
No evidence of obstructive uropathy
Continue treatment for presumed pyelonephritis
Assessment / Plan
-
65F admitted with fever and sepsis likely due to complicated UTI
Significant L flank pain on admission which has not improved despite abx
- CTAP shows nonobstructing renal stones, no hydronephrosis. CT scan somewhat limited in eval of distal ureter at the UVJ due to hip prosthesis
- Additional imaging obtained 07/18 with KUB and renal/bladder US, neither of which suggested a distal ureteral stone. No hydronephrosis and b/l urine jets noted on US. No evidence to suggest obstructive uropathy
- L flank pain is most likely due to ascending UTI/pyelopnephritis, if not from unrelated other cause
- Flank pain with pyelonephritis is sometimes severe and can take 3-5 days to start improving
- Unfortunately urine culture was contaminated so no sensitivity data is available
- Continue abx course, pain control
Diagnosis
-
Date of Service: July 19, 2025
-
Patient Diagnosis:
Flank pain
UTI
Pyelonephritis
Post Op Day:
Subjective
-
persistent intermittent L flank pain moderate to severe
Objective
-
Vital Signs
Temp Pulse Resp BP Pulse Ox
98.0 F 72 18 125/68 96
07/19/25 07:00 07/19/25 07:43 07/19/25 07:43 07/19/25 07:00 07/19/25 07:43
Intake and Output
07/18/25 07/19/25 07/20/25
06:59 06:59 06:59
Intake Total 0 / 2160
Balance 2160 / 2160
Intake:
Oral fluids 2159 / 2159
Other:
Number of approximated MODERATE 4
amounts of urine
Laboratory Results
07/19/25 06:28
07/19/25 06:28
Physical Exam
-
General - well developed, well nourished, no acute distress
Chest - clear, on O2
Abdomen - soft, non-tender
Skin - warm & dry with no rash
Neuro - AOx3, no motor deficits
Extremities - no clubbing, no cyanosis, no edema
[2025-07-19] MEDS: NOVOLOG FLEXPEN-LOW RESISTANCE 1 UNITS SC (09:35)
--- NOTE | 2025-07-19 11:43 | W.PN.HOSP.TC ---
Today's Communication/Plan
-
Still with left flank pain.
Switch Dilaudid to Toradol/oxycodone.
Upgrade to inpatient
Assessment / Plan
Assessment / Plan
Impression:
Patient is a 65-year-old female with past medical history of COPD (on 2 L via nasal cannula chronically), atrial fibrillation, hypertension, hyperlipidemia, CAD, sod-goglrfe-wxewqdasp diabetes, CLL, previous chronic alcohol use currently residing at
[facility] for rehabilitation presenting to the emergency department for a sudden onset of left-sided flank pain. patient noted hematuria, urinary urgency and frequency since last night. today she felt the left flank pain associated with nausea.
patient stated blood in the urine. denied fever, chills, chest pain,sob. stated OLIVA. denied dizzy or syncope. denied abdominal diarrhea or vomiting.
Ct abdomen and pelvis showed:
- Multiple abdominal wall hernias, as described.No evidence of bowel incarceration or obstruction.Left lateral colostomy.No acute inflammatory process within the abdomen or pelvis.1 to 2 mm nonobstructing intrarenal calculus on the left. No
obstructive uropathy.Metal streak artifact related to bilateral hip replacements limits full visualization of the pelvis, including the bladder and ureterovesical junction.Fatty infiltration of liver.Band of consolidation in the posterior medial
left lung base, suggesting segmental and/or subsegmental collapse. Age indeterminate, though felt to be chronic.Nonspecific bilateral prominent inguinal lymph nodes, measuring up to 12 mm short axis. Likely reactive.No vertebral compression
deformity. Degenerative disc disease. Facet arthrosis. Possible subtle old fracture deformity of the S3.Moderate soft tissue stranding and hazy attenuation of the deep subcutaneous fat along the left posterolateral margin of the abdomen. Exact
etiology uncertain. Possible asymmetric edema or deep subcutaneous contusion in the proper clinical setting. No focal collection or abscess.
Patient received a dose of ceftriaxone, Dilaudid, morphine, normal saline in ER. Admitting for further management.
Urine culture came back negative but patient still having left flank pain.
urine culture came back negative but the patient still having left flank pain.
X-ray abdomen ordered, urology consult
Urology recommending ultrasound abdomen, no evidence obstructive uropathy.
Resume acute pyelonephritis.
Continued on IV antibiotics
Assessment/plan:
Sepsis secondary to pyelonephritis
Patient meets sepsis criteria on admission with fever and tachycardia
Source of infection with urine also patient has hematuria secondary to early pyelonephritis
CT abdomen pelvis done in the ER with multiple chronic finding but no acute finding, see report above.
Continue IV ceftriaxone
Pain and nausea control
Pending urine culture
07/18
urine culture came back negative but the patient still having left flank pain.
X-ray abdomen ordered, urology consulted
07/19
Urology recommending ultrasound abdomen:
Limited visualization of the left kidney.
No evidence for pelvicalyceal dilation bilaterally.
Probable bilateral nephrolithiasis.
No focal abnormality urinary bladder.
presumed acute pyelonephritis.
Continued on IV antibiotics
Transaminitis
- Continue to monitor
Chronic hypoxic respiratory failure on 2 L baseline
History of COPD/asthma
- Patient not in acute exacerbation
- Nebs from home continued
-Singulair,prednisone continued
History of coronary artery disease/hyperlipidemia
Continue statin
History of TIA
-statin continued
History of paroxysmal A-fib
Currently sinus rhythm
-Eliquis, sotalol continued
History of Crohn's/diverticulitis
S/P Colostomy
History of diabetes mellitus
Continue home medication
Insulin sliding scale
Diabetic diet
Hemoglobin A1c 8.4
CODE STATUS: Full code
DVT prophylaxis: Eliquis
Diet: Regular diet
Disposition: upgrade to inpatient
Family communication: Discussed with brother at bedside.
Total time spent on today's encounter was 65 minutes which included time spent in counseling the patient/family regarding diagnosis and treatment plan as listed above, goals of care, and symptom management. Case was discussed with nursing staff,
specialists, and care coordinators/case management. All labs and imaging personally reviewed by me. Remainder the time spent in detailed review of previous records, lab data, imaging, and other medical provider documentation.
Anticipated Discharge: Within 24 hours
Subjective/Interval History
-
Date of Service: July 19, 2025
Still with left flank pain.
Switch Dilaudid to Toradol/oxycodone.
Upgrade to inpatient
Objective Data
-
Labs:
Laboratory Results
07/19/25
06:28
WBC 4.0 L
Hgb 11.5 L
Hct 35.0 L
Plt Count 131
Sodium 134 L
Potassium 4.1
Chloride 99
Carbon Dioxide 30
BUN 13
Creatinine 0.5 L
Glucose 174 H
Calcium 8.6
Total Bilirubin 0.7
AST 51 H
ALT 74 H
Alkaline Phosphatase 61
Vital Signs:
Vital Signs
Temp Pulse Resp BP Pulse Ox
97.7 F 71 18 104/61 97
07/19/25 11:00 07/19/25 11:00 07/19/25 11:00 07/19/25 11:00 07/19/25 11:00
I&O
07/18/25 07/19/25 07/20/25
06:59 06:59 06:59
Intake Total 2160 / 2160
Balance 2160 / 2160
Physical Exam
-
General: Well Developed, Well Nourished, No Apparent Distress and Comfortable
HEENT: Normocephalic, Atraumatic, Moist Mucous Membranes, No Ptosis, PERRLA and Nose Appears Normal
Respiratory: Rales, Rhonchi and Non Labored Respirations
Cardiac: Regular Rhythm and S1/S2
Breast: Deferred by me
GI: Soft, Tender (Left flank) and Other (Umbilical hernia, colostomy)
Genito-urinary: No Costovertebral Tender
Musculoskeletal: No Clubbing, No Cyanosis and No Edema
Skin: Warm
Neuro: Awake, Alert, Oriented, AO x 3 and No Motor Deficits
Psych: Anxious
[2025-07-19 12:01] LABS: Glucose - Point of Care 235 mg/dl (70-99)
[2025-07-19] MEDS: NOVOLOG FLEXPEN-LOW RESISTANCE 2 UNITS SC ×2 (12:31→17:21)
[2025-07-19] MEDS: ROXICODONE 5 MG PO ×2 (12:31→20:15)
[2025-07-19] MEDS: TORADOL 15 MG IV ×2 (14:50→22:09)
--- NOTE | 2025-07-19 15:09 | CM ---
Cm continues to follow for discharge planning. PT and OT have evaluated and recommended SNF. Pt is on 2LO2 at baseline.
Pt admitted from [facility]; plan is to move in with her brother when she is able to be more independent.
Plan: Likely return to [facility] for continued rehab to enable her to live with her brother
[2025-07-19 16:50] LABS: Glucose - Point of Care 214 mg/dl (70-99)
[2025-07-19] MEDS: CRESTOR 10 MG PO (17:29)
[2025-07-19] MEDS: STERILE WATER FOR INJECTION 10 ML IV (17:33)
[2025-07-19] MEDS: ROCEPHIN 1000 MG IV (17:33)
[2025-07-19] MEDS: SINGULAIR 10 MG PO (20:15)
[2025-07-19 21:39] LABS: Glucose - Point of Care 292 mg/dl (70-99)
[2025-07-19] MEDS: FLUSH (NSS) 1 FLUSH IV (22:11)
--- NOTE | 2025-07-20 03:13 | DOWNTIME ---
There was a [email or web address] Client [employer] Downtime on 07/20/2025 from 0100 to 07/20/2025 at 0235. Downtime documentation of patient's care, including medication administrations, has been reconciled in the electronic record per guidelines. Refer to the
patient's paper chart under the miscellaneous tab to see printed paper medication records and downtime forms.
[2025-07-20 03:36] VITALS: BP 122/67
--- NOTE | 2025-07-20 05:11 | PTCARENOTE ---
Assumed care of patient at 0300. Assessment unchanged from previous. Telemetry = SR. Observed w/eyes closed, even respirations. Call cavazos w/in reach, able to make needs known.
[2025-07-20 06:00] VITALS: BMI 40.6
[2025-07-20] MEDS: BETAPACE 80 MG PO (06:11)
[2025-07-20] MEDS: ROXICODONE 5 MG PO (06:11)
[2025-07-20 07:00] VITALS: BP 84/59
[2025-07-20] MEDS: SYMBICORT 160/4.5 MCG INHALER 2 PUFF INH (07:28)
[2025-07-20] MEDS: SPIRIVA RESPIMAT 2.5 MCG 2 PUFF INH (07:28)
[2025-07-20 07:39] LABS: Glucose - Point of Care 189 mg/dl (70-99)
[2025-07-20] MEDS: NOVOLOG FLEXPEN-LOW RESISTANCE SC (07:43)
[2025-07-20] MEDS: ELIQUIS 5 MG PO (07:49)
[2025-07-20] MEDS: DELTASONE 5 MG PO (07:49)
[2025-07-20] MEDS: DALIRESP PO ×2 (07:49→07:53)
[2025-07-20 07:51] LABS: Hematocrit 33.6 % (37.0-47.0); Hemoglobin 10.9 g/dL (12.0-16.0); Mean Corp Hgb Conc. 32.4 g/dL (33.0-37.0); Mean Corpuscular Volume 94.6 fL (81.0-99.0); Platelet Count 131 10^3/uL (130-400); Red Cell Dist. Width 12.1 % (11.5-14.5)
[2025-07-20 07:53] VITALS: BP 115/57
[2025-07-20] MEDS: TORADOL 15 MG IV (07:58)
[2025-07-20 08:16] LABS: ALT (SGPT) 72 U/L (0-35); AST (SGOT) 46 U/L (14-36); Albumin 3.2 g/dl (3.5-5.0); Alkaline Phosphatase 64 U/L (38-126); Blood Urea Nitrogen 17 mg/dl (7-17); Calcium 9.3 mg/dl (8.4-10.2); Carbon Dioxide 32 mmol/L (22-30); Chloride 100 mmol/L (98-107); Estimated Creatinine Clearance 120 ml/min; Glucose 195 mg/dl (70-99); Potassium 3.8 mmol/L (3.5-5.1); Sodium 135 mmol/L (135-145); Total Protein 5.1 g/dl (6.3-8.2); eGFR > 60.00
[2025-07-20] MEDS: NOVOLOG FLEXPEN-LOW RESISTANCE 1 UNITS SC (09:25)
[2025-07-20] MEDS: TIGAN 200 MG IM (09:51)
[2025-07-20 11:00] VITALS: BP 117/60
--- NOTE | 2025-07-20 11:07 | W.DCSUMMARY ---
Discharge Summary
Discharge Data
Date of Admission: 07/16/25
Date of Discharge: 07/20/25
Total time spent discharging patient (in min): 40
-
Pending Results: No
Hospital Course
Hospital course
Patient is a 65-year-old female with past medical history of COPD (on 2 L via nasal cannula chronically), atrial fibrillation, hypertension, hyperlipidemia, CAD, ssl-jmiyqqt-zdfuaxdjp diabetes, CLL, previous chronic alcohol use currently residing at
[facility] for rehabilitation presenting to the emergency department for a sudden onset of left-sided flank pain. patient noted hematuria, urinary urgency and frequency since last night. today she felt the left flank pain associated with nausea.
patient stated blood in the urine. denied fever, chills, chest pain,sob. stated OLIVA. denied dizzy or syncope. denied abdominal diarrhea or vomiting.
Ct abdomen and pelvis showed:
- Multiple abdominal wall hernias, as described.No evidence of bowel incarceration or obstruction.Left lateral colostomy.No acute inflammatory process within the abdomen or pelvis.1 to 2 mm nonobstructing intrarenal calculus on the left. No
obstructive uropathy.Metal streak artifact related to bilateral hip replacements limits full visualization of the pelvis, including the bladder and ureterovesical junction.Fatty infiltration of liver.Band of consolidation in the posterior medial
left lung base, suggesting segmental and/or subsegmental collapse. Age indeterminate, though felt to be chronic.Nonspecific bilateral prominent inguinal lymph nodes, measuring up to 12 mm short axis. Likely reactive.No vertebral compression
deformity. Degenerative disc disease. Facet arthrosis. Possible subtle old fracture deformity of the S3.Moderate soft tissue stranding and hazy attenuation of the deep subcutaneous fat along the left posterolateral margin of the abdomen. Exact
etiology uncertain. Possible asymmetric edema or deep subcutaneous contusion in the proper clinical setting. No focal collection or abscess.
Patient received a dose of ceftriaxone, Dilaudid, morphine, normal saline in ER. Admitting for further management.
Urine culture came back negative but patient still having left flank pain.
urine culture came back negative but the patient still having left flank pain.
X-ray abdomen ordered, urology consult
Urology recommending ultrasound abdomen, no evidence obstructive uropathy.
Resume acute pyelonephritis.
Continued on IV antibiotics
To be discharged back to SNF on oral antibiotics, Toradol in addition of her home oxycodone.
During hospitalization patient was treated from the following
Sepsis secondary to pyelonephritis
Patient meets sepsis criteria on admission with fever and tachycardia
Source of infection with urine also patient has hematuria secondary to early pyelonephritis
CT abdomen pelvis done in the ER with multiple chronic finding but no acute finding, see report above.
Continue IV ceftriaxone
Pain and nausea control
Pending urine culture
07/18
urine culture came back negative but the patient still having left flank pain.
X-ray abdomen ordered, urology consulted
07/19
Urology recommending ultrasound abdomen:
Limited visualization of the left kidney.
No evidence for pelvicalyceal dilation bilaterally.
Probable bilateral nephrolithiasis.
No focal abnormality urinary bladder.
presumed acute pyelonephritis.
Continued on IV antibiotics
07/19
To be discharged back to SNF on oral antibiotics, Zofran, Toradol in addition of her home oxycodone.
Transaminitis
- Continue to monitor
Chronic hypoxic respiratory failure on 2 L baseline
History of COPD/asthma
- Patient not in acute exacerbation
- Nebs from home continued
-Singulair,prednisone continued
History of coronary artery disease/hyperlipidemia
Continue statin
History of TIA
-statin continued
History of paroxysmal A-fib
Currently sinus rhythm
-Eliquis, sotalol continued
History of Crohn's/diverticulitis
S/P Colostomy
History of diabetes mellitus
Continue home medication
Insulin sliding scale
Diabetic diet
Hemoglobin A1c 8.4
CODE STATUS: Full code
DVT prophylaxis: Eliquis
Diet: Regular diet
Disposition: dc
Family communication: Discussed with brother at bedside.
Total time spent on today's encounter was 40 minutes which included time spent in counseling the patient/family regarding diagnosis and treatment plan as listed above, goals of care, and symptom management. Case was discussed with nursing staff,
specialists, and care coordinators/case management. All labs and imaging personally reviewed by me. Remainder the time spent in detailed review of previous records, lab data, imaging, and other medical provider documentation.
Anticipated Discharge: Today
Discharge Plan
-
Patient Disposition: Half-Way/SNF
Discharge Diagnosis/Procedures: Sepsis secondary to pyelonephritis
Transaminitis.
Chronic hypoxic respiratory failure on 2 L baseline
Diet: As tolerated and Regular
Activity: With assistance and As tolerated
Referrals:
Skyler Saez MD [Family Provider]
Abiodun Gabriel MD [Active, Urology] - in one to two weeks
Prescriptions:
New
cefuroxime axetil 500 mg tablet
500 mg PO BID 5 Days Qty: 10 0RF
ketorolac 10 mg tablet
10 mg PO Q6H PRN (Reason: Pain) 5 Days Qty: 20 0RF
Continued
acetaminophen 325 mg Tablet
650 mg PO Q4H PRN (Reason: mild pain)
azithromycin 250 mg tablet
250 mg PO MOWEFR
simethicone 180 mg Capsule
180 mg PO DAILYPRN PRN (Reason: gas)
sotalol 80 mg tablet
80 mg PO Q12H
prednisone 5 mg tablet
5 mg PO DAILY
cyanocobalamin (vitamin B-12) 1,000 mcg Tablet
1,000 mcg PO DAILY
therapeutic multivitamin Tablet
1 tab PO DAILY
alprazolam 0.25 mg tablet
0.25 mg PO [id number] PRN (Reason: anxiety)
magnesium hydroxide [Milk of Magnesia] 400 mg/5 mL Suspension
30 ml PO DAILY PRN (Reason: no BM in 3 days)
Rx Instructions:
give at bedtime
carboxymethylcellulose sodium [Refresh Tears] 0.5 % Drops
1 drp BOTH EYES TIDPRN PRN (Reason: dry eyes)
bisacodyl 10 mg Suppository
10 mg IN DAILYPRN PRN (Reason: if MOM ineffective)
montelukast 10 mg tablet
10 mg PO HS
albuterol sulfate 90 mcg/actuation HFA aerosol inhaler
1 inh INHALATION R Q8HPRN PRN (Reason: sob)
fluticasone propionate 50 mcg/actuation [place],Suspension
1 spray intranasal DAILY PRN (Reason: allergies)
oxycodone 5 mg tablet
5 mg PO Q6HPRN PRN (Reason: moderate pain)
rosuvastatin 10 mg tablet
10 mg PO QPM
cholecalciferol (vitamin D3) 25 mcg (1,000 unit) Tablet
25 mcg PO DAILY
roflumilast 500 mcg tablet
500 mcg PO DAILY
Eliquis 5 mg tablet
5 mg PO BID
guaifenesin 600 mg Tablet Extended Release 12hr
600 mg PO Q12H PRN (Reason: congestion)
Trelegy Ellipta 200-62.5-25 mcg blister with device
1 inh INHALATION R DAILY
Chlorophyll
60 mg PO DAILY
Discontinued
ibuprofen 200 mg Tablet
200 mg PO Q8H PRN (Reason: mild pain)
Discharge Orders:
Discharge Patient (As Directed); Ordered 07/20/25
Ordered By: Madelin Ernst
Discharge Date and Time
Print Language: KYRGYZ
--- NOTE | 2025-07-20 11:07 | W.PN.HOSP.TC ---
Today's Communication/Plan
-
To be discharged back to SNF on oral antibiotics, Zofran, Toradol in addition of her home oxycodone.
Assessment / Plan
Assessment / Plan
Impression:
Patient is a 65-year-old female with past medical history of COPD (on 2 L via nasal cannula chronically), atrial fibrillation, hypertension, hyperlipidemia, CAD, ssr-pbrqsiw-laotnfbgd diabetes, CLL, previous chronic alcohol use currently residing at
[facility] for rehabilitation presenting to the emergency department for a sudden onset of left-sided flank pain. patient noted hematuria, urinary urgency and frequency since last night. today she felt the left flank pain associated with nausea.
patient stated blood in the urine. denied fever, chills, chest pain,sob. stated OLIVA. denied dizzy or syncope. denied abdominal diarrhea or vomiting.
Ct abdomen and pelvis showed:
- Multiple abdominal wall hernias, as described.No evidence of bowel incarceration or obstruction.Left lateral colostomy.No acute inflammatory process within the abdomen or pelvis.1 to 2 mm nonobstructing intrarenal calculus on the left. No
obstructive uropathy.Metal streak artifact related to bilateral hip replacements limits full visualization of the pelvis, including the bladder and ureterovesical junction.Fatty infiltration of liver.Band of consolidation in the posterior medial
left lung base, suggesting segmental and/or subsegmental collapse. Age indeterminate, though felt to be chronic.Nonspecific bilateral prominent inguinal lymph nodes, measuring up to 12 mm short axis. Likely reactive.No vertebral compression
deformity. Degenerative disc disease. Facet arthrosis. Possible subtle old fracture deformity of the S3.Moderate soft tissue stranding and hazy attenuation of the deep subcutaneous fat along the left posterolateral margin of the abdomen. Exact
etiology uncertain. Possible asymmetric edema or deep subcutaneous contusion in the proper clinical setting. No focal collection or abscess.
Patient received a dose of ceftriaxone, Dilaudid, morphine, normal saline in ER. Admitting for further management.
Urine culture came back negative but patient still having left flank pain.
urine culture came back negative but the patient still having left flank pain.
X-ray abdomen ordered, urology consult
Urology recommending ultrasound abdomen, no evidence obstructive uropathy.
Resume acute pyelonephritis.
Continued on IV antibiotics
To be discharged back to SNF on oral antibiotics, Zofran, Toradol in addition of her home oxycodone.
Assessment/plan:
Sepsis secondary to pyelonephritis
Patient meets sepsis criteria on admission with fever and tachycardia
Source of infection with urine also patient has hematuria secondary to early pyelonephritis
CT abdomen pelvis done in the ER with multiple chronic finding but no acute finding, see report above.
Continue IV ceftriaxone
Pain and nausea control
Pending urine culture
07/18
urine culture came back negative but the patient still having left flank pain.
X-ray abdomen ordered, urology consulted
07/19
Urology recommending ultrasound abdomen:
Limited visualization of the left kidney.
No evidence for pelvicalyceal dilation bilaterally.
Probable bilateral nephrolithiasis.
No focal abnormality urinary bladder.
presumed acute pyelonephritis.
Continued on IV antibiotics
07/19
To be discharged back to SNF on oral antibiotics, Zofran, Toradol in addition of her home oxycodone.
Transaminitis
- Continue to monitor
Chronic hypoxic respiratory failure on 2 L baseline
History of COPD/asthma
- Patient not in acute exacerbation
- Nebs from home continued
-Singulair,prednisone continued
History of coronary artery disease/hyperlipidemia
Continue statin
History of TIA
-statin continued
History of paroxysmal A-fib
Currently sinus rhythm
-Eliquis, sotalol continued
History of Crohn's/diverticulitis
S/P Colostomy
History of diabetes mellitus
Continue home medication
Insulin sliding scale
Diabetic diet
Hemoglobin A1c 8.4
CODE STATUS: Full code
DVT prophylaxis: Eliquis
Diet: Regular diet
Disposition: dc
Family communication: Discussed with brother at bedside.
Total time spent on today's encounter was 65 minutes which included time spent in counseling the patient/family regarding diagnosis and treatment plan as listed above, goals of care, and symptom management. Case was discussed with nursing staff,
specialists, and care coordinators/case management. All labs and imaging personally reviewed by me. Remainder the time spent in detailed review of previous records, lab data, imaging, and other medical provider documentation.
Anticipated Discharge: Today
Subjective/Interval History
-
Date of Service: July 20, 2025
Still with left flank pain, negative culture
Objective Data
-
Labs:
Laboratory Results
07/20/25
07:28
WBC 3.2 L
Hgb 10.9 L
Hct 33.6 L
Plt Count 131
Sodium 135
Potassium 3.8
Chloride 100
Carbon Dioxide 32 H
BUN 17
Creatinine 0.6
Glucose 195 H
Calcium 9.3
Total Bilirubin 0.6
AST 46 H
ALT 72 H
Alkaline Phosphatase 64
Vital Signs:
Vital Signs
Temp Pulse Resp BP Pulse Ox
97.8 F 64 18 115/57 95
07/20/25 07:00 07/20/25 07:53 07/20/25 07:33 07/20/25 07:53 07/20/25 07:33
I&O
07/19/25 07/20/25 07/21/25
06:59 06:59 06:59
Intake Total 2159 / 2160 1080 / 1080
Balance 0 / 2160 1080 / 1080
Physical Exam
-
General: Well Developed, Well Nourished, No Apparent Distress and Comfortable
HEENT: Normocephalic, Atraumatic, Moist Mucous Membranes, No Ptosis, PERRLA and Nose Appears Normal
Respiratory: Rales, Rhonchi and Non Labored Respirations
Cardiac: Regular Rhythm and S1/S2
Breast: Deferred by me
GI: Soft, Tender (Left flank) and Other (Umbilical hernia, colostomy)
Genito-urinary: No Costovertebral Tender
Musculoskeletal: No Clubbing, No Cyanosis and No Edema
Skin: Warm
Neuro: Awake, Alert, Oriented, AO x 3 and No Motor Deficits
Psych: Anxious
[2025-07-20 11:47] LABS: Glucose - Point of Care 340 mg/dl (70-99)
[2025-07-20 13:57] LABS: Glucose - Point of Care 311 mg/dl (70-99)
--- NOTE | 2025-07-20 14:24 | CM ---
Addendum entered by RADHA Cesar 07/20/25 14:57:
Patient requested that her brother Jameel be updated. Placed a call to Jameel to update. He is agreeable to plan.
Original Note:
Received notification that patient is medically cleared for discharge. Spoke with patient, reviewed IMM. She had no concerns about discharge. She was made aware of recommendation from PT for SNF. She was agreeable to indication. Placed a call to
Helen in admissions at [facility] who confirmed ability to accept patient to rehab. # For report [phone] and fax# [phone]
Medical necessity and transfer sheet provided to [facility] community support specialist for transfer.
Plan: Case management will continue to follow and assist with discharge planning. [facility].
[2025-07-20] MEDS: NOVOLOG FLEXPEN-LOW RESISTANCE 4 UNITS SC (14:40)
[2025-07-20 14:41] VITALS: BP 141/64
== END 2025-07-20 15:17 | DRG 872 ==
LOC: 3 WEST ACU 16:19
PROVIDERS: Physician Assistant Medical; Registered Nurse; ADMITTING PHYSICIAN Internal Medicine; ATTENDING PHYSICIAN General Practice; CONSULT PHYSICIAN Urology; EMERGENCY PHYSICIAN Student in an Organized Health Care Education/Training Program; FAMILY PHYSICIAN Internal Medicine
DX: A41.9 Sepsis, unspecified organism (principal); N10 Acute pyelonephritis; J96.11 Chronic respiratory failure with hypoxia; K50.90 Crohn's disease, unspecified, without complications; C91.10 Chronic lymphocytic leukemia of B-cell type not having achieved remission; Z68.41 Body mass index [BMI] 40.0-44.9, adult; F41.9 Anxiety disorder, unspecified; Z79.01 Long term (current) use of anticoagulants; Z86.73 Personal history of transient ischemic attack (TIA), and cerebral infarction without residual deficits; I48.0 Paroxysmal atrial fibrillation; I25.10 Atherosclerotic heart disease of native coronary artery without angina pectoris; J44.89 Other specified chronic obstructive pulmonary disease; N20.0 Calculus of kidney; Z93.3 Colostomy status; K43.9 Ventral hernia without obstruction or gangrene; Z96.643 Presence of artificial hip joint, bilateral; K76.0 Fatty (change of) liver, not elsewhere classified; I10 Essential (primary) hypertension; Z87.891 Personal history of nicotine dependence; E11.65 Type 2 diabetes mellitus with hyperglycemia; E03.9 Hypothyroidism, unspecified; E66.01 Morbid (severe) obesity due to excess calories; E78.00 Pure hypercholesterolemia, unspecified; Z87.440 Personal history of urinary (tract) infections; Z99.81 Dependence on supplemental oxygen
CPT/HCPCS: 74018; 74176; 76770; 80053; 81003; 81015; 82962; 83036; 83690; 84484; 85025; 85027; 87070; 87086; 93005; 94640; 96361; 96374; 96375; 97163; 97167; 99285

== ENCOUNTER 2025-08-21 06:19 | Inpatient (IN) | payer MEDICARE, MEDICAID, SELFPAY ==
[2025-08-21] VITALS (12 sets, daily range): BP systolic 89–126; BP diastolic 51–78; BMI 41.4
[2025-08-21 01:53] LABS: Hematocrit 36.4 % (37.0-47.0); Hemoglobin 12.1 g/dL (12.0-16.0); Mean Corp Hgb Conc. 33.2 g/dL (33.0-37.0); Mean Corpuscular Volume 90.8 fL (81.0-99.0); Nucleated Red Blood Cells % 0 %; Platelet Count 179 10^3/uL (130-400); Red Cell Dist. Width 12.4 % (11.5-14.5)
[2025-08-21 02:19] LABS: ALT (SGPT) 22 U/L (0-35); AST (SGOT) 18 U/L (14-36); Albumin 3.9 g/dl (3.5-5.0); Alkaline Phosphatase 52 U/L (38-126); Blood Urea Nitrogen 10 mg/dl (7-17); Calcium 9.0 mg/dl (8.4-10.2); Carbon Dioxide 29 mmol/L (22-30); Chloride 96 mmol/L (98-107); Estimated Creatinine Clearance 121 ml/min; Glucose 280 mg/dl (70-99); Lipase 48 U/L (23-300); Potassium 4.6 mmol/L (3.5-5.1); Sodium 130 mmol/L (135-145); Total Protein 6.2 g/dl (6.3-8.2); eGFR > 60.00
[2025-08-21] MEDS: NSS 1000 IV ×3 (03:35→20:10)
[2025-08-21] MEDS: DILAUDID 1 MG IV (03:35)
[2025-08-21] MEDS: MORPHINE SULFATE 4 MG IV (04:52)
[2025-08-21] MEDS: ZOSYN 100 IV (04:53)
--- NOTE | 2025-08-21 05:12 | ED.GENMED ---
History of Present Illness
General
Chief Complaint: Abdominal Pain
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 Treated for potential pyelonephritis versus recently passed kidney stone)
Exam Limitations: none
Time Seen by Provider: 08/21/25 03:04
Nursing documentation reviewed up to this point in time: agreed with
History of Present Illness
History of Present Illness:
This is a 65-year-old woman with history of COPD, chronic O2 dependence at 2 L, A-fib chronically maintained on Eliquis, hypertension, hyperlipidemia, CAD, ipo-gtxlrle-qidtlqvej diabetes, CLL, history of diverticulitis with perforation with chronic
left lower quadrant colostomy. She also has chronic left lower quadrant abdominal wall hernia. She has chronic low back pain, narcotic dependent. Recently transferred from [place] to this area early July and was hospitalized here 1 month ago
with complaints of acute left flank pain, thought to be related to pyelonephritis versus recently passed kidney stone.
She has morbid obesity, chronic ambulatory dysfunction. 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
She presents via EMS with complaints of left lower quadrant abdominal pain that began yesterday, progressive throughout the day. At first she thought that she was constipated with decreased stool output in colostomy and took a dose of magnesium
with some improvement in stool output but she continues with left lower quadrant pain, much worse tonight with palpable heat and redness to her left lower abdominal wall. She has not had a fever nor chills. Current left lower quadrant pain feels
quite different from left flank pain for which she presented 1 month ago. She currently denies flank pain. No dysuria and urgency and or hematuria.
Past History
Past History
ED Past Medical History: Arrthythmia (Atrial fibrillation), Asthma, CAD, Cancer (CLL), COPD (Chronically O2 dependent), HTN, Hypercholesterolemia, NIDDM, Hypothyroidism, Psychiatric, Other (Chronic low back pain-narcotic dependent. Chronic
ambulatory dysfunction) and Other (Diverticulitis with perforation requiring colostomy 2021)
ED Past Surgical History: Other (Colostomy)
Social History
Tobacco: Non-smoker
Alcohol: Former
Drug: None
Personal: Single
Living: detention
Employment: Disabled
Family History
Family History: Other (Noncontributory)
Phy Exam
Physical Exam
Physical Exam:
GENERAL: 65-year-old obese woman appears her stated age. She is awake and alert, appears in mild distress but easily communicative. Afebrile. Hair is recently dyed purple.
EYE: anicteric
NECK: Supple, nontender, no meningismus, no significant adenopathy.
ENT: oral mucosa is moist. No rhinorrhea.
CARDIAC: Regular rate and rhythm. no murmur.
LUNGS: Clear breath sounds bilaterally, no acute respiratory distress, no wheezes/rales/rhonchi
ABDOMEN: Rotund, soft, nondistended, left lower quadrant colostomy with soft stool within the bag. There is a large ventral hernia left lower quadrant with moderate erythema left lower abdomen that is significantly tender to palpation, moderately
warm to touch. no r/g, no cvat. normoactive BS.
NEUROLOGICAL: Alert and oriented x3, no focal neuro deficits.
SKIN: Warm and dry, skin intact. Left lower quadrant abdominal wall erythema that is warm to touch, moderately tender to touch.
MUSCULOSKELETAL: Lymphedema bilateral lower extremities. Peripheral pulses are full and equal b/l. No palpable tenderness.
PSYCH: Normal and appropriate interaction.
Course
Orders/Labs/Results
Orders:
Orders
08/21/25 01:38
IV Insert/Care/Rem.- Treatment PRN
Urinalysis Reflex To Culture Urgent
Date Specimen was Collected: 08/21/25
Time Specimen was Collected: 01:38
08/21/25 01:40
Complete Blood Count/With Diff Urgent
Comprehensive Metabolic Panel Urgent
Lactic Acid Urgent
Lipase Urgent
08/21/25 03:29
0.9% Sodium Chloride 1000 ml [Nss] 1,000 ml IV BOLUS
HYDROmorphone [Dilaudid] 1 mg IV NOW STA
08/21/25 03:30
CT Abd/pelvis W Iv Cont Urgent
Comment:
Reason For Exam: LLQ pain, abd wall redness
08/21/25 04:44
Morphine Sulfate 4 mg IV NOW STA
Piperacillin/Tazo 4.5 Gram [Zosyn] 4.5 gram in 100 ml IV NOW
Abnormal Lab Results
08/21/25
01:40
WBC 12.2 H 10^3/uL
(4.8-10.8)
RBC 4.01 L 10^6/uL
(4.20-5.40)
Hct 36.4 L %
(37.0-47.0)
Absolute Neuts (auto) 8.4 H 10^3/uL
(1.4-6.5)
Absolute Monos (auto) 1.1 H 10^3/uL
(0.1-0.6)
Lymphocytes % 20.4 L %
(20.5-51.1)
Sodium 130 L mmol/L
(135-145)
Chloride 96 L mmol/L
(98-107)
Glucose 280 H mg/dl
(70-99)
Total Protein 6.2 L g/dl
(6.3-8.2)
08/21/25 01:40
08/21/25 01:40
Vital Signs
Initial and Last Documented VS:
Initial Vital Signs
Temp Pulse Resp BP Pulse Ox
98.6 F 81 16 121/78 94
08/21/25 01:25 08/21/25 01:25 08/21/25 01:25 08/21/25 01:25 08/21/25 01:25
Last Documented Vital Signs
Temp Pulse Resp BP Pulse Ox
98.6 F 77 10 126/74 91
08/21/25 01:25 08/21/25 04:30 08/21/25 03:30 08/21/25 04:27 08/21/25 04:30
MDM/Problems Addressed
Differential Diagnosis Includes:
The Differential Diagnosis includes, in no particular order and is not limited to:
- Cellulitis
- Diverticulitis
- Abdominal abscess
- Infected colostomy site
- Chronic Lymphocytic Leukemia flare
- Mesenteric ischemia
- Bowel obstruction
- Pyoderma gangrenosum
- Necrotizing fasciitis
- Erythema nodosum
MDM/Problems Addressed:
Acute:
- Cellulitis of the abdominal wall
-Acute left lower quadrant abdominal pain
Chronic:
- Chronic Lymphocytic Leukemia
- Chronic Obstructive Pulmonary Disease
- Chronic pain syndrome�narcotic dependent
- History of diverticulitis
- History of A-fib, chronically maintained on Eliquis
Will medicate for pain, initiate IV fluids.
Labs thus far reveal mildly elevated white blood cell count of 12.2, mild hyponatremia of 130, elevated random glucose of 280. Lactic acid is normal at 1.3.
Will check CT abdomen pelvis.
Will plan initiate IV fluids for what I suspect is left lower quadrant abdominal wall cellulitis.
Due to multiple comorbidities, potential for immunosuppression with CLL, diabetes, patient will require IV antibiotic initiation and hospital admission.
Chronic conditions affecting care: DM, CAD, Arrhythmia and Psychiatric illness
*Radiology
Radiology exam reviewed: radiology read reviewed
*Pulse Oximetry
SaO2: 91
Nasal Cannula flow liters per minute: 2
Oxygen Mode of Delivery: Room air
Patient hypoxic: no
*Critical Care Note
Total Time (30-74mins, 75-104mins- exclusive of procedures): Not Applicable
Patient Management
Social determinants of health affecting care: Living situation (The patient appears to require ongoing rehabilitation support, currently residing at a rehabilitation facility, with limited ability to perform certain activities of daily living
independently.)
ED Attending Note
-
Portions of this chart may have been created with voice recognition software.� Occasional wrong word or��sound alike� substitutions may have occurred due to the inherent limitations of voice recognition software.
Discharge Plan
Departure
Patient Disposition: Admit
Date of Disposition: 08/21/25
Time of Disposition: 05:26
Admit to: Med/Surg
Admit to doctor: Tavon
Presentation/result/management discussed w/ accepting MD/DO: Hospitalist
Condition: Fair
Discharge Problem:
Abdominal wall cellulitis
Prescriptions:
No Action
acetaminophen 325 mg Tablet
650 mg PO Q4H PRN (Reason: mild pain)
azithromycin 250 mg tablet
250 mg PO MOWEFR
simethicone 180 mg Capsule
180 mg PO DAILYPRN PRN (Reason: gas)
sotalol 80 mg tablet
80 mg PO Q12H
prednisone 5 mg tablet
5 mg PO DAILY
cyanocobalamin (vitamin B-12) 1,000 mcg Tablet
1,000 mcg PO DAILY
therapeutic multivitamin Tablet
1 tab PO DAILY
alprazolam 0.25 mg tablet
0.25 mg PO [id number] PRN (Reason: anxiety)
magnesium hydroxide [Milk of Magnesia] 400 mg/5 mL Suspension
30 ml PO DAILY PRN (Reason: no BM in 3 days)
Rx Instructions:
give at bedtime
carboxymethylcellulose sodium [Refresh Tears] 0.5 % Drops
1 drp BOTH EYES TIDPRN PRN (Reason: dry eyes)
bisacodyl 10 mg Suppository
10 mg [place] DAILYPRN PRN (Reason: if MOM ineffective)
montelukast 10 mg tablet
10 mg PO HS
albuterol sulfate 90 mcg/actuation HFA aerosol inhaler
1 inh INHALATION R Q8HPRN PRN (Reason: sob)
fluticasone propionate 50 mcg/actuation [place],Suspension
1 spray intranasal DAILY PRN (Reason: allergies)
oxycodone 5 mg tablet
5 mg PO Q6HPRN PRN (Reason: moderate pain)
rosuvastatin 10 mg tablet
10 mg PO QPM
cholecalciferol (vitamin D3) 25 mcg (1,000 unit) Tablet
25 mcg PO DAILY
roflumilast 500 mcg tablet
500 mcg PO DAILY
Eliquis 5 mg tablet
5 mg PO BID
guaifenesin 600 mg Tablet Extended Release 12hr
600 mg PO Q12H PRN (Reason: congestion)
Trelegy Ellipta 200-62.5-25 mcg blister with device
1 inh INHALATION R DAILY
Chlorophyll
60 mg PO DAILY
cefuroxime axetil 500 mg tablet
500 mg PO BID 5 Days Qty: 10 0RF
ketorolac 10 mg tablet
10 mg PO Q6H PRN (Reason: Pain) 5 Days Qty: 20 0RF
Referrals:
NONE,* [Family Provider, Internal Medicine]
Interventions
Interventions:
*Risk Screen - Suicide Last Done: 08/21/25 01:25
*General Assessment Last Done: 08/21/25 01:25
*Neglect/Abuse Screening Last Done: 08/21/25 01:25
*ED- Fall Risk Assessment Last Done: 08/21/25 01:25
*ED COVID-19 Vaccine History Last Done: 08/21/25 01:25
DK-Ijuyee-Bcptbtuncs Assessment Last Done: 08/21/25 01:34
Discharge Date and Time
Print Language: MALTESE
--- NOTE | 2025-08-21 06:06 | HPS.HSE ---
Family Physician
-
Family Physician: * NONE
Chief Complaint
-
Abd Pain
History of Present Illness
Patient is a 65y F with PMH significant for diverticulitis s/p partial colectomy and colostomy (2022) and development of large ventral / parastomal hernia who presents to ED complaining of abdominal pain x 3 days. Patient states that she
developed LLQ abdominal pain on of this week. Pain was worse with laughing, coughing or movement. Today patient noted the the area felt warm to the touch. She pointed this out to staff at her nursing facility and she was transported to
the ED for further evaluation.
Patient denies any fevers / chills. No N/V. She states that she had been constipated recently, but has been producing stool via her ostomy after doses of MOM.
She was most recently admitted last month for suspected UTI and L flank pain - that pain has since resolved.
Patient relocated to the area from [place] in early July. She is a current resident of [facility].
Medical History
Past Medical History
Past Medical History: Reports Other
Additional Past Medical History:
COPD
Chronic Hypoxemic Respiratory Failure
Complicated Diverticulitis
Paroxysmal Atrial Fibrillation
Hypertension
DM-II
Anxiety / Depression
Morbid Obesity
Large Ventral Hernia
Past Surgical History: Reports Other
Additional Past Surgical History:
Partial Colectomy / Colostomy Formation
Bilateral MARIFER
Social History
Tobacco: Former Smoker (Quit smoking 2 years ago. > 40 pack years total use.)
Alcohol: None
Drug: None
Living: Senior [facility]
Family History
Family History: Not pertinent
Allergies / Home Medications
Allergies reflects when Allergies were last updated in [facility].
Home Medications with original date entered in [facility]
Allergy/Medication List:
Allergies
Allergy/AdvReac Type Severity Reaction Status Date / Time
No Known Allergies Allergy Unverified 07/16/25 10:55
Home Medications
Chlorophyll 60 mg PO DAILY Supplement 07/16/25
acetaminophen 325 mg tablet 650 mg PO Q4H PRN mild pain 07/16/25
albuterol sulfate 90 mcg/actuation aerosol inhaler 1 inh inhalation R Q8HPRN PRN sob 07/16/25
apixaban 5 mg tablet (Eliquis) 5 mg PO BID Blood Clot Prevention/Tx 07/16/25
cholecalciferol (vitamin D3) 25 mcg (1,000 unit) tablet 25 mcg PO DAILY Supplement 07/16/25
cyanocobalamin (vitamin B-12) 1,000 mcg tablet 1,000 mcg PO DAILY Supplement 07/16/25
fluticasone fur. 200 mcg-umeclid 62.5 mcg-vilant 25 mcg inhalat.powder (Trelegy Ellipta) 1 inh inhalation R DAILY Lung/Breathing Issues 07/16/25
fluticasone propionate 50 mcg/actuation nasal spray,suspension 1 spray intranasal DAILY PRN allergies 07/16/25
magnesium hydroxide 400 mg/5 mL oral suspension (Milk of Magnesia) 30 ml PO DAILY PRN no BM in 3 days 07/16/25
montelukast 10 mg tablet 10 mg PO HS Allergies 07/16/25
oxycodone 5 mg tablet 5 mg PO Q6HPRN PRN moderate pain 07/16/25
prednisone 5 mg tablet 5 mg PO DAILY ANTIINFLAMMATION 07/16/25
simethicone 180 mg capsule 180 mg PO DAILYPRN PRN gas 07/16/25
therapeutic multivitamin 1 tab PO DAILY Supplement 07/16/25
apixaban 5 mg tablet (Eliquis) 5 mg PO BID 08/21/25
rosuvastatin 10 mg tablet 10 mg PO DAILY 08/21/25
sotalol 80 mg tablet 80 mg PO BID 08/21/25
Review of Systems
-
History Source: Patient
A 12 point ROS was completed and negative except as noted: Yes
Constitutional: Denies Fever, Fatigue or Chills
Respiratory: Denies Cough or Trouble Breathing
Cardiac: Denies Chest Pain or Palpitations
Abdomen/GI: Reports Abdominal Pain and Constipated; Denies Nausea, Vomiting, Diarrhea or Bloody Stools
: Denies Dysuria, Frequency or Flank Pain
Musculoskeletal: Denies Joint Pain or Edema
Neurological: Denies Dizzy or Headache
Psych: Denies Depression or Anxiety
Physical Exam
Vital Signs
Vital Signs
Temp Pulse Resp BP Pulse Ox
98.6 F 77 10 112/64 94
08/21/25 01:25 08/21/25 06:00 08/21/25 03:30 08/21/25 06:00 08/21/25 06:00
Physical Exam
General: Other (65y F in no acute distress.)
HEENT: Moist mucous membranes and PERRLA
Respiratory: Other (Decreased at bases. Scattered squeaks / wheezes. Cough with deep inspiration.)
Cardiac: S1/S2 and Regular Rhythm; No Murmur
GI: Other (Obese, left sided ostomy with dark stool in device. Erythema and induration of the LLQ abdominal wall with localized tenderness. No fluctuance. Large anterior hernia.)
Musculoskeletal: No Clubbing, No Cyanosis and No Edema
Neuro: AO x 3
Laboratory Results
-
08/21/25 01:40
08/21/25 01:40
Laboratory Results
Lactic Acid 1.3 mmol/L (0.7-2.0) 08/21/25 01:40
Total Bilirubin 1.0 mg/dl (0.2-1.3) 08/21/25 01:40
AST 18 U/L (14-36) 08/21/25 01:40
ALT 22 U/L (0-35) 08/21/25 01:40
Alkaline Phosphatase 52 U/L (38-126) 08/21/25 01:40
Lipase 48 U/L (23-300) 08/21/25 01:40
Impression/Plan
-
A/P: Patient is a 65y F with PMH significant for colon resection / colostomy and ventral hernia who presents to ED complaining of abdominal pain x several days.
Abdominal Wall Cellulitis
Large Ventral Hernia(s)
- Admit for further evaluation and treatment.
- Evident cellulitis with erythema and induration of the LLQ area / abdominal wall.
- ? evidence on preliminary CT read of fluid / inflammatory changes of the bowel underlying this area as well.
- Lactate is normal. Stool being produced from ostomy.
- Will ask Surgery to evaluate for any additional recommendations.
- Follow-up formal CT report when available.
- IV abx with Zosyn for now.
- Supportive care including pain control, NPO, IVFs, etc.
- Follow for clinical improvement.
COPD
Chronic Hypoxemic Respiratory Failure secondary to the above
- Stable. No new / worsened SOB or active wheezing.
- Continue inhaled medications.
- Continue Singulair and prednisone.
- Continue usual NC O2 and titrate as needed.
Paroxysmal Atrial Fibrillation
- Stable. Continue current sotalol dosing.
- Hold Eliquis acutely in the event that any intervention / procedures are necessary.
DM-II
- Hyperglycemia on current labs - likely exacerbated by acute infectious / inflammatory process.
- Follow glucose and cover with SSI as needed.
- A1C was 8.4% last admission.
- Patient not on any routine DM medications per NH record.
- Would start PO regimen and / or basal : bolus insulin prior to discharge.
Chronic Pain Syndrome
Chronic Opioid Dependence
- Stable. No change in chronic back pain.
- Continue usual oxycodone PRN.
Morbid Obesity due to excess calories
- Affects all aspects of care.
- Encourage healthy diet and increased activity with goal of weight loss.
DVT Prophylaxis: SCDs while Eliquis on hold.
Code Status: Full
[2025-08-21 06:24] LABS: Urine Character Clear (Clear)
[2025-08-21 06:31] LABS: Urine Red Blood Cell 0-2 /HPF (0-2); Urine Squamous Cell 0-2 /LPF (Few); Urine White Cell 0-2 /HPF (0-5)
--- NOTE | 2025-08-21 08:05 | PTCARENOTE ---
Pt transferred from ED. Pt pulled over into bed. Pt AAOX3, able to make needs known, VSS. Pt oriented to unit, call cavazos within reach. Presents with colostomy. Will continue with current plan.
[2025-08-21 08:25] LABS: Glucose - Point of Care 234 mg/dl (70-99)
[2025-08-21] MEDS: SYMBICORT 160/4.5 MCG INHALER 2 PUFF INH ×2 (08:35→20:20)
[2025-08-21] MEDS: SPIRIVA RESPIMAT 2.5 MCG 2 PUFF INH (08:35)
--- NOTE | 2025-08-21 08:43 | W.PN.HOSP.TC ---
Addendum entered and electronically signed by Benjamin Munguia DO 08/21/25 12:40:
Acute COPD exacerbation -noted to have wheezing and coughing.
Will increase prednisone to 40 mg daily, continue nebulizers and inhalers.
Incentive spirometry. Mucinex.
Original Note:
Today's Communication/Plan
-
General Surgery consult
Obtain records
Continue antibiotics
Assessment / Plan
Assessment / Plan
Gen-AAOx3, NAD, obese
HEENT-NC, AT, anicteric, clear oral mm
Neck-supple
CV-reg, no M, +S1/S2
Lungs-clear B/L
Abd-soft, tender left lower quadrant with erythema of skin, ostomy in place
Ext-no edema
Musculoskeletal-no cyanosis, clubbing
Skin-warm and dry
Neuro-grossly non-focal
Psych-calm, cooperative
Left lower quadrant cellulitis -Will continue antibiotics. Continue analgesics. Presentation with mild leukocytosis but afebrile.
CT abdomen/pelvis with contrast notes large left-sided abdominal ventral hernia, largest in the abdominal pannus containing nondilated bowel with fluid and surrounding inflammation, no obstruction.
General surgery consulted. Continue n.p.o. for now. Resume Eliquis if okay with surgery.
Hyponatremia -POA. Could be related to volume depletion. IV fluid support, recheck labs.
History of diverticulitis -s/p partial colectomy and ostomy, 2022 in [facility]. Records have been requested.
History of Crohn's -on chronic prednisone.
COPD without exacerbation -stable. Continue inhalers. Oxygen dependent, on 2 L nasal cannula chronically.
Paroxysmal atrial fibrillation -continue sotalol. Resume Eliquis if okay with surgical service.
History of TIA
DM 2 with hyperglycemia -glucose 280 this morning. Not on diabetes meds in the [facility] for unclear reasons. Hemoglobin A1c 8.4% in July.
Continue aspart low resistance scale for now.
Essential hypertension -stable.
Hyperlipidemia -rosuvastatin.
Anxiety/depression
Chronic pain syndrome/chronic opiate dependence
Morbid obesity due to excess calories
Full code
Anticipated Discharge: > 48 hours
Subjective/Interval History
-
Date of Service: August 21, 2025
Patient seen and examined, complaining of left lower quadrant pain.
Objective Data
-
Labs:
Laboratory Results
08/21/25
01:40
WBC 12.2 H
Hgb 12.1
Hct 36.4 L
Plt Count 179
Sodium 130 L
Potassium 4.6
Chloride 96 L
Carbon Dioxide 29
BUN 10
Creatinine 0.6
Glucose 280 H
Calcium 9.0
Total Bilirubin 1.0
AST 18
ALT 22
Alkaline Phosphatase 52
Vital Signs:
Vital Signs
Temp Pulse Resp BP Pulse Ox
98 F 75 16 117/62 96
08/21/25 08:02 08/21/25 08:02 08/21/25 08:02 08/21/25 08:02 08/21/25 08:02
Review of Systems
-
History Source: Patient
All other systems: Reviewed and negative
[2025-08-21] MEDS: BETAPACE 80 MG PO ×2 (08:51→20:09)
[2025-08-21] MEDS: DELTASONE 5 MG PO (08:51)
[2025-08-21] MEDS: NSS (PRESERVATIVE FREE) 10 ML IV (08:52)
[2025-08-21] MEDS: PROTONIX IV 40 MG IV (08:52)
[2025-08-21] MEDS: NOVOLOG FLEXPEN-LOW RESISTANCE 2 UNITS SC (08:54)
[2025-08-21] MEDS: DILAUDID 0.5 MG IV ×3 (08:55→20:09)
[2025-08-21] MEDS: ZOSYN 50 IV ×3 (09:02→21:06)
--- NOTE | 2025-08-21 09:35 | CON.GS ---
Consultation
-
Date/Time Consultation Requested: 08/21/2025, 07:44
Date/Time Consultation Performed: 08/21/2025, 10:30
Requesting Provider: Saul Montes De Oca DO
Performing Provider: Sanjiv Kapoor MD
Reason for Consultation: abdominal wall cellulitis
Medical History
-
Chief Complaint: abdominal pain
History of Present Illness:
65yo female with a past medical history of diverticulitis s/p partial colectomy and colostomy in 2022 in in [facility] with subsequent large ventral/parastoma hernia, Crohns on chronic prednisone, also on Eliquis (afib), presents to
[facility] complaining of abdominal pain for the past three days. The pain is worse with movement and coughing. She noticed it was warm to the touch yesterday. Denies nausea, vomiting, fevers or chills. She has been constipated but her colostomy
is functioning after taking MOM. She was recently admitted about a month ago for a sepsis secondary to pyelonephritis which has since resolved. She has never had a colonoscopy but did have a cologuard that was negative 4 years ago. Denies a family
history of colon or rectal cancer.
On admission, her WBC is 12.2. Her vitals are normal and she remains afebrile. CT A/P performed yesterday shows 'Large left-sided abdominal ventral hernias again seen largest in the abdominal pannus containing nondilated bowel with fluid and
surrounding inflammation, no findings to suggest intestinal obstruction.' Given this, we have been consulted for surgical recommendations.
Past Medical History
Past Medical History: Other (COPD, Chronic Hypoxemic Respiratory Failure, Diverticulitis, Paroxysmal Atrial Fibrillation Hypertension DM-II Anxiety / Depression Morbid Obesity Large Ventral Hernia)
Past Surgical History: Other (Partial Colectomy / Colostomy Formation ([place], [place] in 2022), Bilateral MARIFER)
Social History
Tobacco: Former Smoker
Alcohol: None
Drug: None
Living: Intermediate
Family History
Family History: Reviewed & Not Pertinent
Allergies / Home Medications
Allergy/AdvReac Type Severity Reaction Status Date / Time
No Known Allergies Allergy Unverified 07/16/25 10:55
�Medication �Instructions �Recorded �Confirmed �Type
Chlorophyll 60 mg PO DAILY Supplement 07/16/25 08/21/25 History
acetaminophen 325 mg tablet 650 mg PO Q4H PRN mild pain 07/16/25 08/21/25 History
albuterol sulfate 90 mcg/actuation 1 inh inhalation R Q8HPRN PRN sob 07/16/25 08/21/25 History
aerosol inhaler
apixaban 5 mg tablet (Eliquis) 5 mg PO BID Blood Clot 07/16/25 08/21/25 History
Prevention/Tx
cholecalciferol (vitamin D3) 25 25 mcg PO DAILY Supplement 07/16/25 08/21/25 History
mcg (1,000 unit) tablet
cyanocobalamin (vitamin B-12) 1,000 mcg PO DAILY Supplement 07/16/25 08/21/25 History
1,000 mcg tablet
fluticasone fur. 200 mcg-umeclid 1 inh inhalation R DAILY 07/16/25 08/21/25 History
62.5 mcg-vilant 25 mcg Lung/Breathing Issues
inhalat.powder (Trelegy Ellipta)
fluticasone propionate 50 1 spray intranasal DAILY PRN 07/16/25 08/21/25 History
mcg/actuation nasal allergies
spray,suspension
magnesium hydroxide 400 mg/5 mL 30 ml PO DAILY PRN no BM in 3 days 07/16/25 08/21/25 History
oral suspension (Milk of Magnesia)
montelukast 10 mg tablet 10 mg PO HS Allergies 07/16/25 08/21/25 History
oxycodone 5 mg tablet 5 mg PO Q6HPRN PRN moderate pain 07/16/25 08/21/25 History
prednisone 5 mg tablet 5 mg PO DAILY ANTIINFLAMMATION 07/16/25 08/21/25 History
simethicone 180 mg capsule 180 mg PO DAILYPRN PRN gas 07/16/25 08/21/25 History
therapeutic multivitamin 1 tab PO DAILY Supplement 07/16/25 08/21/25 History
apixaban 5 mg tablet (Eliquis) 5 mg PO BID 08/21/25 08/21/25 History
rosuvastatin 10 mg tablet 10 mg PO DAILY 08/21/25 08/21/25 History
sotalol 80 mg tablet 80 mg PO BID 08/21/25 08/21/25 History
Review of Systems
-
History Source: Patient
Abdomen/GI: Abdominal Pain (LLQ)
A 10 point review of systems was completed, and was negative except as per HPI.
Physical Exam
Vital Signs
Temp Pulse Resp BP Pulse Ox
98 F 72 16 117/62 96
08/21/25 08:02 08/21/25 08:45 08/21/25 08:45 08/21/25 08:02 08/21/25 08:45
08/20/25 08/21/25 08/22/25
06:59 06:59 06:59
Actual Weight 116.3 kg
Body Mass Index (BMI) 41.4
Lab Results
08/21/25 01:40
08/21/25 01:40
WBC 12.2 10^3/uL (4.8-10.8) H 08/21/25 01:40
Hgb 12.1 g/dL (12.0-16.0) 08/21/25 01:40
Hct 36.4 % (37.0-47.0) L 08/21/25 01:40
Plt Count 179 10^3/uL (130-400) 08/21/25 01:40
Abs Immat Gran (auto) 0.0 10^3/uL (0-0.05) 08/21/25 01:40
Neutrophils % 68.7 % (42.2-75.2) 08/21/25 01:40
Physical Exam
General: Well Developed, Well Nourished and No Apparent Distress
GI: Soft, Tender (moderately tender LLQ on palpation, some erythema noted, warm to touch) and Other (ostomy warm and pink with function, noted hernia midline abdomen, old midline scar noted)
Skin: Warm and Dry
Neuro: AO x 3
Psych: Calm
Data Reviewed
-
CT Scan: Image Personally Visualized and interpreted, Report Reviewed by me and Discussed with Patient
Labs: Labs Reviewed by me, Discussed with Physician and Discussed with Patient
Old Records: Reviewed
Assessment / Plan
-
Assessment: 65yo female with a PMH of diverticulitis s/p colostomy and crohns on chronic prednisone presents to complaining of LLQ pain with likely diverticulitis/inflammation within hernia sac
Plan:
-Continue IV Zosyn
-Records request has been placed
-Hold Eliquis for now - will plan on holding until certain she does not need surgery
-Keep NPO with IVFS
-She is high risk for surgery given her COPD, chronic steroids, as well as other health conditions. Plan is to continue with IV antibiotics in hopes she improves. If she worsens, she will require the OR.
-Discussed with patient and brother (on the phone)
-Will need medical optimization should she require surgery
-Daily CRPs/CBC
[2025-08-21 12:03] LABS: Glucose - Point of Care 304 mg/dl (70-99)
[2025-08-21] MEDS: VENTOLIN NEBULES 2.5 MG INH (12:24)
[2025-08-21] MEDS: ATIVAN 0.5 MG PO ×2 (12:36→23:01)
[2025-08-21] MEDS: DELTASONE 40 MG PO (12:36)
[2025-08-21] MEDS: NOVOLOG FLEXPEN-LOW RESISTANCE 4 UNITS SC ×2 (12:37→17:55)
[2025-08-21 12:54] LABS: C-Reactive Protein 243.80 mg/L (0.0-10.00)
[2025-08-21] MEDS: MUCINEX 600 MG PO ×2 (13:00→20:09)
--- NOTE | 2025-08-21 13:15 | CM ---
CM reviewed chart and spoke with brother Jameel [phone].
Jameel confirmed pt comes from [facility] where she has been for about 5-6 weeks now after [place]ocating [place] this [place].
Pt uses a RW at baseline, her mobility has been limited by pain. Assist for adls.
Jameel reports that initially pt was hesitatant but has grown to really like being at [facility]. and pt/family preference is for her to return at [facility].
Message to [facility] to clarify if pt is STR vs LTC and bed hold status, pending response.
For now, will send a referral for return via [facility].
Jameel requested CM let team know that pt is very anxious. Will do so now via [facility].
[2025-08-21 17:42] LABS: Glucose - Point of Care 315 mg/dl (70-99)
[2025-08-21] MEDS: SINGULAIR 10 MG PO (20:11)
[2025-08-21] MEDS: SENOKOT 17.2 MG PO ×2 (20:11→20:12)
[2025-08-21 23:48] LABS: Glucose - Point of Care 265 mg/dl (70-99)
[2025-08-21] MEDS: NOVOLOG FLEXPEN-LOW RESISTANCE 3 UNITS SC (23:49)
[2025-08-22 03:00] VITALS: BP 118/74
[2025-08-22] MEDS: ZOSYN 50 IV ×4 (03:06→22:18)
[2025-08-22] MEDS: DILAUDID 0.5 MG IV ×5 (03:08→22:19)
[2025-08-22 05:01] VITALS: BMI 40.8
[2025-08-22 06:05] LABS: Glucose - Point of Care 227 mg/dl (70-99)
[2025-08-22] MEDS: NSS 1000 IV (06:07)
[2025-08-22] MEDS: NOVOLOG FLEXPEN-LOW RESISTANCE 2 UNITS SC (06:07)
[2025-08-22 06:55] LABS: Hematocrit 32.9 % (37.0-47.0); Hemoglobin 10.7 g/dL (12.0-16.0); Mean Corp Hgb Conc. 32.5 g/dL (33.0-37.0); Mean Corpuscular Volume 94.3 fL (81.0-99.0); Platelet Count 157 10^3/uL (130-400); Red Cell Dist. Width 12.3 % (11.5-14.5)
[2025-08-22 07:11] LABS: ALT (SGPT) 18 U/L (0-35); AST (SGOT) 11 U/L (14-36); Albumin 3.4 g/dl (3.5-5.0); Alkaline Phosphatase 56 U/L (38-126); Blood Urea Nitrogen 11 mg/dl (7-17); Calcium 8.7 mg/dl (8.4-10.2); Carbon Dioxide 28 mmol/L (22-30); Chloride 104 mmol/L (98-107); Estimated Creatinine Clearance 120 ml/min; Glucose 228 mg/dl (70-99); Potassium 4.5 mmol/L (3.5-5.1); Sodium 137 mmol/L (135-145); Total Protein 5.4 g/dl (6.3-8.2); eGFR > 60.00
[2025-08-22 07:27] LABS: C-Reactive Protein 167.20 mg/L (0.0-10.00)
[2025-08-22 07:28] VITALS: BP 126/80
[2025-08-22] MEDS: SPIRIVA RESPIMAT 2.5 MCG 2 PUFF INH (07:46)
[2025-08-22] MEDS: SYMBICORT 160/4.5 MCG INHALER 2 PUFF INH ×2 (07:47→19:34)
[2025-08-22] MEDS: MUCINEX 600 MG PO ×2 (09:13→20:37)
[2025-08-22] MEDS: BETAPACE 80 MG PO ×2 (09:13→20:37)
[2025-08-22] MEDS: DELTASONE 40 MG PO (09:13)
[2025-08-22] MEDS: NSS (PRESERVATIVE FREE) 10 ML IV (09:14)
[2025-08-22] MEDS: PROTONIX IV 40 MG IV (09:14)
--- NOTE | 2025-08-22 09:21 | W.PN.HOSP.TC ---
Today's Communication/Plan
-
see bold
Assessment / Plan
Assessment / Plan
Left lower quadrant cellulitis
-CT abdomen/pelvis with contrast notes large left-sided abdominal ventral hernia, largest in the abdominal pannus containing nondilated bowel with fluid and surrounding inflammation, no obstruction.
Patient wishing to avoid surgery. Appreciate surgery input, trial of IV zosyn, bowel rest, IV fluids
Hyponatremia
-POA. Could be related to volume depletion
-Resolved with IV fluids
History of diverticulitis
-S/p partial colectomy and ostomy, 2022 in [facility]. Records have been requested.
History of Crohn's
-On chronic prednisone 5 mg daily
Mild acute COPD exacerbation
-Oxygen dependent, on 2 L nasal cannula chronically
-Started on prednisone 40 mg daily on 08/21, will start weaning to her home dose of 5 mg daily
-Continue bronchodilators
Paroxysmal atrial fibrillation
-Continue sotalol. Resume Eliquis when okay with surgical service.
History of TIA
DM 2 with hyperglycemia
-Not on diabetes meds in the residential for unclear reasons. Hemoglobin A1c 8.4% in July.
-Start lantus 10 units HS, continue SSI
Essential hypertension -stable.
Hyperlipidemia -rosuvastatin.
Anxiety/depression
Chronic pain syndrome/chronic opiate dependence
Morbid obesity due to excess calories
DVT prophylaxis�Lovenox
Full code
Total time spent to see the patient on the floor, examine the patient, review data and lab results, discuss treatment plan with patient, nursing staff around 50 minutes.
Physical Exam
General: Obese, no acute distress
HEENT: Normocephalic, Atraumatic, EOMI, MMM
Respiratory: Clear to Auscultation bilaterally
Cardiac: Normal S1/S2, Regular Rate and Rhythm
GI: Soft, soft, tender left lower quadrant with erythema of skin, ostomy in place
Extremities: No Clubbing, Cyanosis, or Edema
Neuro: Nonfocal/Grossly Intact
Anticipated Discharge: > 48 hours
Subjective/Interval History
-
Date of Service: August 22, 2025
Patient reports her abdominal pain is 7 out of 10 in intensity, mildly improved from prior. No chest pain, no shortness of breath. No fever, no vomiting.
Objective Data
-
Labs:
Laboratory Results
08/22/25
06:11
WBC 8.3
Hgb 10.7 L
Hct 32.9 L
Plt Count 157
Sodium 137
Potassium 4.5
Chloride 104
Carbon Dioxide 28
BUN 11
Creatinine 0.5 L
Glucose 228 H
Calcium 8.7
Total Bilirubin 0.5
AST 11 L
ALT 18
Alkaline Phosphatase 56
Vital Signs:
Vital Signs
Temp Pulse Resp BP Pulse Ox
97.6 F 65 16 126/80 99
08/22/25 07:28 08/22/25 07:51 08/22/25 07:51 08/22/25 07:28 08/22/25 07:51
I&O
08/21/25 08/22/25 08/23/25
06:59 06:59 06:59
Intake Total 1200 / 1200
Output Total 450 / 450
Balance 750 / 750
--- NOTE | 2025-08-22 09:23 | W.PN.CRS1 ---
Addendum entered and electronically signed by Rj Barone MD 08/22/25 17:55:
updated brother over the phone
Addendum entered and electronically signed by Rj Barone MD 08/22/25 09:30:
Ok for clears
Will add colace BID for harder stool in ostomy applicance
Recommend DVT ppx with lovenox
Original Note:
Today's Communication / Plan
-
as below
Assessment/Plan
-
65-year-old female with PMH of A-fib (on Eliquis), COPD, HTN, DM, anxiety/depression, elevated BMI, perforated diverticulitis s/p colostomy 2022 at [facility] who presents with left-sided worsening pain near her ostomy
AFVSS
WBC 8.3 from 12.2, CRP 170 from 243
� Peristomal cellulitis; no concern for strangulated parastomal hernia or obstruction; may have a component of diverticulitis, but not reported on CT scan
�No acute surgery at this point; blanching erythema persist, but WBC and CRP is improving as well as pain; patient made it very clear that she would like to avoid surgery at all costs
�Continue IV Zosyn
� Continue pain control with Tylenol/oxycodone/Dilaudid as needed
�Continue home meds and inhalers; on prednisone 40 mg daily
�Appreciate hospitalist
Subjective Data
Subjective Data
Date of Service: August 22, 2025
No overnight events.
Pain in left abdomen persist, but significantly improved from yesterday
Denies nausea/vomiting. Currently NPO
+ Ostomy function +voiding
Objective Data
-
Vital Signs
Temp Pulse Resp BP Pulse Ox
97.6 F 65 16 126/80 99
08/22/25 07:28 08/22/25 07:51 08/22/25 07:51 08/22/25 07:28 08/22/25 07:51
Intake & Output
08/21/25 08/22/25 08/23/25
06:59 06:59 06:59
Intake Total 1200 / 1200
Output Total 450 / 450
Balance 750 / 750
Intake:
IV fluids (Total) 1100 / 1100
IV piggybacks 100 / 100
Output:
Urine, Voided 450 / 450
Other:
How many times incontinent 2
SATURATED amount urine
Number of approximated MODERATE 1
amounts of urine
Lab Results
08/22/25 06:11
08/22/25 06:11
Physical Exam
-
General: No Acute Distress and AOx3
HEENT: Grossly Normal
Abdomen: Soft, Non Distended, Tender (Significantly tender in the LLQ to left flank over the area of blanching erythema), No Guarding, No Rebound and Other (LLQ colostomy with surrounding bulging from parastomal hernia, not reducible; blanching
erythema extending from lower abdominal midline to the left lower flank, inferior to the colostomy)
Neurological: No Motor Deficits
Skin: Warm and Dry
[2025-08-22 10:14] LABS: Glucose - Point of Care 192 mg/dl (70-99)
[2025-08-22 10:20] LABS: Glycohemoglobin (HgbA1c) 9.5 % (4.0-5.6)
[2025-08-22 11:34] VITALS: BP 108/69
[2025-08-22 12:20] LABS: Glucose - Point of Care 267 mg/dl (70-99)
[2025-08-22] MEDS: NOVOLOG FLEXPEN-LOW RESISTANCE SC ×2 (12:49→17:17)
[2025-08-22] MEDS: NOVOLOG FLEXPEN-LOW RESISTANCE 3 UNITS SC (12:55)
[2025-08-22] MEDS: COLACE 100 MG PO ×2 (12:55→20:37)
[2025-08-22 14:03] VITALS: BMI 40.8
--- NOTE | 2025-08-22 14:26 | CM ---
Chart reviewed and patient to return to [facility] when stable, clinicals faxed to [facility] today.
[facility]
Report [phone]
[2025-08-22 15:25] VITALS: BP 135/77
[2025-08-22 16:43] LABS: Glucose - Point of Care 331 mg/dl (70-99)
[2025-08-22] MEDS: NSS IV (16:53)
[2025-08-22] MEDS: LOVENOX 40 MG SC (17:13)
[2025-08-22] MEDS: NOVOLOG FLEXPEN-MODERATE RESISTANCE 7 UNITS SC (17:18)
[2025-08-22] MEDS: NOVOLOG FLEXPEN 4 UNITS SC (17:19)
[2025-08-22] MEDS: NOVOLOG FLEXPEN-MODERATE RESISTANCE SC (17:52)
[2025-08-22 19:00] VITALS: BP 139/64
[2025-08-22] MEDS: ROXICODONE 5 MG PO (20:39)
[2025-08-22 21:46] LABS: Glucose - Point of Care 257 mg/dl (70-99)
[2025-08-22] MEDS: SINGULAIR 10 MG PO (22:18)
[2025-08-22] MEDS: LANTUS 0.1 UNITS SC (22:21)
[2025-08-22 23:00] VITALS: BP 121/65
[2025-08-23] VITALS (8 sets, daily range): BP systolic 106–152; BP diastolic 56–78; PULSE 67; O2SAT 100; BMI 41.7
[2025-08-23] MEDS: DILAUDID 0.25 MG IV (00:41)
[2025-08-23] MEDS: ZOSYN 50 IV ×4 (03:00→22:56)
[2025-08-23] MEDS: DILAUDID 0.5 MG IV ×5 (06:02→23:12)
[2025-08-23 07:19] LABS: Glucose - Point of Care 160 mg/dl (70-99)
[2025-08-23] MEDS: SYMBICORT 160/4.5 MCG INHALER 2 PUFF INH ×2 (07:20→19:33)
[2025-08-23] MEDS: SPIRIVA RESPIMAT 2.5 MCG 2 PUFF INH (07:20)
[2025-08-23] MEDS: COLACE 100 MG PO ×2 (08:17→20:00)
[2025-08-23] MEDS: DELTASONE 30 MG PO (08:17)
[2025-08-23] MEDS: BETAPACE 80 MG PO ×2 (08:17→19:59)
[2025-08-23] MEDS: PROTONIX IV 40 MG IV (08:18)
[2025-08-23] MEDS: MUCINEX 600 MG PO ×2 (08:18→19:57)
[2025-08-23] MEDS: NSS (PRESERVATIVE FREE) 10 ML IV (08:18)
[2025-08-23] MEDS: NOVOLOG FLEXPEN 4 UNITS SC (08:20)
[2025-08-23] MEDS: NOVOLOG FLEXPEN-MODERATE RESISTANCE 1 UNITS SC (08:21)
--- NOTE | 2025-08-23 09:01 | W.PN.HOSP.TC ---
Today's Communication/Plan
-
see bold
Assessment / Plan
Assessment / Plan
Peristomal cellulitis
-CT abdomen/pelvis with contrast notes large left-sided abdominal ventral hernia, largest in the abdominal pannus containing nondilated bowel with fluid and surrounding inflammation, no obstruction.
Patient wishing to avoid surgery. Appreciate colorectal surgery input, improving on IV Zosyn, for full liquids today
Hyponatremia
-POA. Could be related to volume depletion
-Resolved with IV fluids
History of diverticulitis
-S/p partial colectomy and ostomy, 2022 in [facility]. Records have been requested.
History of Crohn's
-On chronic prednisone 5 mg daily
Mild acute COPD exacerbation
-Oxygen dependent, on 2 L nasal cannula chronically
-Started on prednisone 40 mg daily on 08/21, will start weaning to her home dose of 5 mg daily
-Continue bronchodilators
Paroxysmal atrial fibrillation
-Continue sotalol. Resume Eliquis when okay with surgical service.
History of TIA
DM 2 with hyperglycemia
-Not on diabetes meds in the [facility] for unclear reasons. Hemoglobin A1c uncontrolled at 9.5
-Started on Lantus 10 units at bedtime and NovoLog 5 units AC 3 times daily -she will need insulin upon discharge
Essential hypertension -stable.
Hyperlipidemia -rosuvastatin.
Anxiety/depression
Chronic pain syndrome/chronic opiate dependence
Morbid obesity due to excess calories
DVT prophylaxis�Lovenox
Full code
Total time spent to see the patient on the floor, examine the patient, review data and lab results, discuss treatment plan with patient, nursing staff around 40 minutes.
Physical Exam
General: Obese, no acute distress
HEENT: Normocephalic, Atraumatic, EOMI, MMM
Respiratory: Clear to Auscultation bilaterally
Cardiac: Normal S1/S2, Regular Rate and Rhythm
GI: Soft, soft, tender left lower quadrant with erythema of skin, ostomy in place
Extremities: No Clubbing, Cyanosis, or Edema
Neuro: Nonfocal/Grossly Intact
Anticipated Discharge: > 48 hours
Subjective/Interval History
-
Date of Service: August 23, 2025
Patient reports improvement in her abdominal pain. Denies nausea, denies vomiting. No chest pain, shortness of breath. No fever.
Objective Data
-
Labs:
Laboratory Results
08/23/25
07:54
WBC Pending
Hgb Pending
Hct Pending
Plt Count Pending
Sodium Pending
Potassium Pending
Chloride Pending
Carbon Dioxide Pending
BUN Pending
Creatinine Pending
Glucose Pending
Calcium Pending
Vital Signs:
Vital Signs
Temp Pulse Resp BP Pulse Ox
97.6 F 64 18 114/70 97
08/23/25 03:13 08/23/25 07:25 08/23/25 07:25 08/23/25 03:13 08/23/25 07:25
I&O
08/22/25 08/23/25 08/24/25
06:59 06:59 06:59
Intake Total 1200 / 1200 800 / 800
Output Total 450 / 450
Balance 750 / 750 800 / 800
--- NOTE | 2025-08-23 09:03 | W.PN.CRS1 ---
Today's Communication / Plan
-
as below
Assessment/Plan
-
65-year-old female with PMH of A-fib (on Eliquis), COPD, HTN, DM, anxiety/depression, elevated BMI, perforated diverticulitis s/p colostomy 2022 at OSH who presents with left-sided worsening pain near her ostomy
AFVSS
WBC 8.3 from 12.2, CRP 170 from 243
� Peristomal cellulitis; no concern for strangulated parastomal hernia or obstruction; may have a component of diverticulitis, but not reported on CT scan
�No acute surgery at this point; blanching erythema persist, but WBC and CRP is improving as well as pain; patient made it very clear that she would like to avoid surgery at all costs
� No plans for surgery at this time.
- Advance to full liquids.
- Continue IV Zosyn
� Continue pain control with Tylenol/oxycodone/Dilaudid as needed
� Continue home meds and inhalers; on prednisone 40 mg daily
� Appreciate hospitalist
Subjective Data
Subjective Data
Date of Service: August 23, 2025
She is still having some discomfort in the left lower quadrant but overall improved. She has chronic pain when she coughs. She is hungry but afraid to eat. She is tolerating clears and the ostomy is functioning.
Objective Data
-
Vital Signs
Temp Pulse Resp BP Pulse Ox
97.6 F 64 18 114/70 97
08/23/25 03:13 08/23/25 07:25 08/23/25 07:25 08/23/25 03:13 08/23/25 07:25
Intake & Output
08/22/25 08/23/25 08/24/25
06:59 06:59 06:59
Intake Total 1200 / 1200 800 / 800
Output Total 450 / 450
Balance 750 / 750 800 / 800
Intake:
Oral fluids 660 / 660
IV fluids (Total) 1100 / 1100 40 / 40
IV piggybacks 100 / 100 100 / 100
Output:
Urine, Voided 450 / 450
Other:
How many times incontinent 2
SATURATED amount urine
Number of approximated MODERATE 1 3
amounts of urine
Number of approximated LARGE 2
amounts of urine
Physical Exam
-
General: No Acute Distress
Abdomen: Soft, Non Distended and Tender (Mild at the lower edge of the hernia. There is still erythema extending from the hernia laterally but eye surgeon in color. There is no crepitus or peritoneal signs. The ostomy is functioning.)
[2025-08-23] MEDS: NOVOLOG FLEXPEN SC (09:21)
[2025-08-23 09:33] LABS: Hematocrit 33.3 % (37.0-47.0); Hemoglobin 10.8 g/dL (12.0-16.0); Mean Corp Hgb Conc. 32.4 g/dL (33.0-37.0); Mean Corpuscular Volume 95.7 fL (81.0-99.0); Platelet Count 167 10^3/uL (130-400); Red Cell Dist. Width 12.4 % (11.5-14.5)
[2025-08-23 09:53] LABS: Blood Urea Nitrogen 12 mg/dl (7-17); Calcium 9.2 mg/dl (8.4-10.2); Carbon Dioxide 32 mmol/L (22-30); Chloride 103 mmol/L (98-107); Estimated Creatinine Clearance 104 ml/min; Glucose 158 mg/dl (70-99); Magnesium 2.4 mg/dl (1.6-2.3); Potassium 4.2 mmol/L (3.5-5.1); Sodium 139 mmol/L (135-145); eGFR > 60.00
[2025-08-23 09:57] LABS: C-Reactive Protein 54.60 mg/L (0.0-10.00)
[2025-08-23 11:31] LABS: Glucose - Point of Care 210 mg/dl (70-99)
[2025-08-23] MEDS: NOVOLOG FLEXPEN 5 UNITS SC ×2 (12:11→17:34)
[2025-08-23] MEDS: NOVOLOG FLEXPEN-MODERATE RESISTANCE 3 UNITS SC (12:11)
--- NOTE | 2025-08-23 14:52 | PN.CDI ---
CDI
- -
CDI:
Physician Documentation Request
Admit Date: 08/21/25 06:19
Dear Doctor Do,
Please review the following and provide your response in the progress notes.
Clinical Indicators:
Laboratory Tests
08/21/25 08/22/25 08/23/25
01:40 06:11 07:54
RBC 4.01 L 3.49 L 3.48 L
Hgb 12.1 10.7 L 10.8 L
Hct 36.4 L 32.9 L 33.3 L
Based on the above and your clinical assessment, please clarify the most likely condition/diagnosis evaluated, monitored and/or treated?
Acute blood loss anemia
Precipitous drop in hematocrit
Abnormal lab value, clinically insignificant
Other(please specify)
Use of terms such as suspected, likely, concern for, or probable (associated with a specific diagnosis that is being evaluated, monitored, or treated as if it exists) are acceptable and can be coded in the inpatient setting, when documented at the
time of discharge.
Thank you,
Mily Soliman RN BSN CCDS
CDI Specialist
Please contact via tiger text
Please use your independent medical judgment in providing your response.
[2025-08-23 16:39] LABS: Glucose - Point of Care 400 mg/dl (70-99)
[2025-08-23] MEDS: NOVOLOG FLEXPEN-MODERATE RESISTANCE 11 UNITS SC (17:32)
[2025-08-23] MEDS: LOVENOX 40 MG SC (17:34)
[2025-08-23 21:23] LABS: Glucose - Point of Care 412 mg/dl (70-99)
[2025-08-23 22:18] LABS: Glucose 413 mg/dl (70-99)
[2025-08-23] MEDS: LANTUS 0.1 UNITS SC (22:55)
[2025-08-23] MEDS: SINGULAIR 10 MG PO (22:56)
[2025-08-23] MEDS: NOVOLOG FLEXPEN 11 UNITS SC (22:59)
[2025-08-24 02:01] LABS: Glucose - Point of Care 230 mg/dl (70-99)
[2025-08-24 03:14] VITALS: BP 137/74
[2025-08-24] MEDS: DILAUDID 0.5 MG IV ×5 (03:35→23:09)
[2025-08-24] MEDS: ZOSYN 50 IV ×4 (05:29→23:09)
[2025-08-24 06:00] VITALS: BMI 42.6
[2025-08-24 07:00] VITALS: BP 129/70
[2025-08-24 07:13] LABS: Glucose - Point of Care 171 mg/dl (70-99)
[2025-08-24] MEDS: SYMBICORT 160/4.5 MCG INHALER 2 PUFF INH ×2 (07:40→19:17)
[2025-08-24] MEDS: SPIRIVA RESPIMAT 2.5 MCG 2 PUFF INH (07:40)
[2025-08-24] MEDS: MUCINEX 600 MG PO ×2 (07:55→20:27)
[2025-08-24] MEDS: NSS (PRESERVATIVE FREE) 10 ML IV (07:55)
[2025-08-24] MEDS: PROTONIX IV 40 MG IV (07:55)
[2025-08-24] MEDS: COLACE 100 MG PO ×2 (07:55→20:27)
[2025-08-24] MEDS: BETAPACE 80 MG PO ×2 (07:55→20:32)
[2025-08-24] MEDS: DELTASONE 20 MG PO (07:55)
[2025-08-24 08:47] LABS: Hematocrit 34.6 % (37.0-47.0); Hemoglobin 11.2 g/dL (12.0-16.0); Mean Corp Hgb Conc. 32.4 g/dL (33.0-37.0); Mean Corpuscular Volume 94.5 fL (81.0-99.0); Platelet Count 166 10^3/uL (130-400); Red Cell Dist. Width 12.4 % (11.5-14.5)
[2025-08-24] MEDS: NOVOLOG FLEXPEN-MODERATE RESISTANCE 1 UNITS SC (09:01)
[2025-08-24] MEDS: NOVOLOG FLEXPEN 5 UNITS SC ×2 (09:02→12:45)
--- NOTE | 2025-08-24 10:12 | W.PN.HOSP.TC ---
Today's Communication/Plan
-
see bold
Assessment / Plan
Assessment / Plan
Peristomal cellulitis
-CT abdomen/pelvis with contrast notes large left-sided abdominal ventral hernia, largest in the abdominal pannus containing nondilated bowel with fluid and surrounding inflammation, no obstruction.
Patient wishing to avoid surgery. Appreciate colorectal surgery input, improving on IV Zosyn, for LRD today
Hyponatremia
-POA. Could be related to volume depletion
-Resolved with IV fluids
History of diverticulitis
-S/p partial colectomy and ostomy, 2022 in [facility]. Records have been requested.
History of Crohn's
-On chronic prednisone 5 mg daily
Mild acute COPD exacerbation
-Oxygen dependent, on 2 L nasal cannula chronically
-Started on prednisone 40 mg daily on 08/21, continue weaning steroids to her home dose of 5 mg daily
-Continue bronchodilators
Paroxysmal atrial fibrillation
-Continue sotalol. Resume Eliquis when okay with surgical service.
History of TIA
DM 2 with hyperglycemia
-Not on diabetes meds in the detention for unclear reasons. Hemoglobin A1c uncontrolled at 9.5
-Started on Lantus 10 units at bedtime, increase NovoLog 8 units AC 3 times daily -she will need insulin upon discharge
Anemia
- Likely due to her infection, trend hemoglobin
Essential hypertension -stable.
Hyperlipidemia -rosuvastatin.
Anxiety/depression
Chronic pain syndrome/chronic opiate dependence
Morbid obesity due to excess calories
DVT prophylaxis�Lovenox
Full code
Total time spent to see the patient on the floor, examine the patient, review data and lab results, discuss treatment plan with patient, nursing staff around 42 minutes.
Physical Exam
General: Obese, no acute distress
HEENT: Normocephalic, Atraumatic, EOMI, MMM
Respiratory: Clear to Auscultation bilaterally
Cardiac: Normal S1/S2, Regular Rate and Rhythm
GI: Soft, soft, tender left lower quadrant with improving erythema of skin, ostomy in place
Extremities: No Clubbing, Cyanosis, or Edema
Neuro: Nonfocal/Grossly Intact
Anticipated Discharge: 24 - 48 hours
Subjective/Interval History
-
Date of Service: August 24, 2025
Patient reports improvement in her abdominal pain. No pain at rest, she has pain with touching and movement. Denies nausea, denies vomiting. No fever, no chest pain, no shortness of breath.
Objective Data
-
Labs:
Laboratory Results
08/23/25 08/24/25
21:50 08:17
WBC 5.0
Hgb 11.2 L
Hct 34.6 L
Plt Count 166
Sodium Pending
Potassium Pending
Chloride Pending
Carbon Dioxide Pending
BUN Pending
Creatinine Pending
Glucose 413 H Pending
Calcium Pending
Vital Signs:
Vital Signs
Temp Pulse Resp BP Pulse Ox
97.5 F 51 16 129/70 100
08/24/25 07:00 08/24/25 07:43 08/24/25 07:43 08/24/25 07:00 08/24/25 08:00
I&O
08/23/25 08/24/25 08/25/25
06:59 06:59 06:59
Intake Total 800 / 800 1440 / 1440
Output Total 100 / 100
Balance 800 / 800 1340 / 1340
--- NOTE | 2025-08-24 10:17 | CM ---
Pt on full liquids.
Continues IV antibiotics.
On oxygen 2 liters with Pox 100 %
Pt to return to [facility] at dc.
[facility]
Report [phone]

PLAN Return to [facility] when medicably ready
[2025-08-24 10:20] LABS: Blood Urea Nitrogen 13 mg/dl (7-17); Calcium 9.5 mg/dl (8.4-10.2); Carbon Dioxide 29 mmol/L (22-30); Chloride 103 mmol/L (98-107); Estimated Creatinine Clearance 106 ml/min; Glucose 149 mg/dl (70-99); Potassium 3.6 mmol/L (3.5-5.1); Sodium 138 mmol/L (135-145); eGFR > 60.00
[2025-08-24 10:23] LABS: C-Reactive Protein 30.30 mg/L (0.0-10.00)
--- NOTE | 2025-08-24 10:31 | W.PN.CRS1 ---
Today's Communication / Plan
-
low residue
no plans for surgery
Assessment/Plan
-
65-year-old female with PMH of A-fib (on Eliquis), COPD, HTN, DM, anxiety/depression, elevated BMI, perforated diverticulitis s/p colostomy 2022 at OSH who presents with left-sided worsening pain near her ostomy
AFVSS
WBC 5.0 (8.3), CRP 30.3 (170 , 243)
� Peristomal cellulitis; no concern for strangulated parastomal hernia or obstruction; may have a component of diverticulitis, but not reported on CT scan
�No acute surgery at this point; blanching erythema persist, but WBC and CRP is improving as well as pain; patient made it very clear that she would like to avoid surgery at all costs
� No plans for surgery at this time.
- Advance to low residue
- Continue IV Zosyn
� Continue pain control with Tylenol/oxycodone/Dilaudid as needed
� Continue home meds and inhalers; on prednisone 40 mg daily
� Appreciate hospitalist
Subjective Data
Subjective Data
Date of Service: August 24, 2025
Patient states that she feels well today. She feels less pain. Denies nausea or vomiting. She is moving her bowels. She has been told by the nurses that with the redness on her abdomen looks less.
Objective Data
-
Vital Signs
Temp Pulse Resp BP Pulse Ox
97.5 F 51 16 129/70 100
08/24/25 07:00 08/24/25 07:43 08/24/25 07:43 08/24/25 07:00 08/24/25 08:00
Intake & Output
08/23/25 08/24/25 08/25/25
06:59 06:59 06:59
Intake Total 800 / 800 1440 / 1440
Output Total 100 / 100
Balance 800 / 800 1340 / 1340
Intake:
Oral fluids 660 / 660 1440 / 1440
IV fluids (Total) 40 / 40
IV piggybacks 100 / 100
Output:
Urine, Voided 100 / 100
Other:
How many times incontinent 1
MODERATE amount urine
Number of approximated MODERATE 3 3
amounts of urine
Number of approximated LARGE 2
amounts of urine
Lab Results
08/24/25 08:17
08/24/25 08:17
Physical Exam
-
General: No Acute Distress and AOx3
Abdomen: Soft and Other (Mild at the lower edge of the hernia. There is still erythema extending from the hernia laterally but bow string maker in color and improving. The ostomy is functioning)
Skin: Warm and Dry
[2025-08-24 11:00] VITALS: BP 128/76
[2025-08-24 12:33] LABS: Glucose - Point of Care 293 mg/dl (70-99)
[2025-08-24] MEDS: NOVOLOG FLEXPEN-MODERATE RESISTANCE 5 UNITS SC (12:44)
[2025-08-24 15:30] VITALS: BP 137/79
[2025-08-24 17:15] LABS: Glucose - Point of Care 422 mg/dl (70-99)
[2025-08-24 17:59] LABS: Glucose 404 mg/dl (70-99)
[2025-08-24] MEDS: NOVOLOG FLEXPEN-MODERATE RESISTANCE 11 UNITS SC (18:09)
[2025-08-24] MEDS: NOVOLOG FLEXPEN 8 UNITS SC (18:09)
[2025-08-24] MEDS: LOVENOX 40 MG SC (18:10)
[2025-08-24 21:30] LABS: Glucose - Point of Care 367 mg/dl (70-99)
[2025-08-24] MEDS: SINGULAIR 10 MG PO (22:21)
[2025-08-24] MEDS: LANTUS 0.1 UNITS SC (22:23)
[2025-08-24 23:13] VITALS: BP 122/54
[2025-08-25] MEDS: ZOSYN 50 IV ×2 (03:00→09:33)
[2025-08-25 03:09] VITALS: BP 143/81
[2025-08-25] MEDS: DILAUDID 0.5 MG IV ×2 (03:39→09:16)
[2025-08-25 06:00] VITALS: BMI 41.6
[2025-08-25] MEDS: SPIRIVA RESPIMAT 2.5 MCG 2 PUFF INH (07:15)
[2025-08-25] MEDS: SYMBICORT 160/4.5 MCG INHALER 2 PUFF INH (07:15)
[2025-08-25 08:18] LABS: Glucose - Point of Care 175 mg/dl (70-99)
[2025-08-25 08:19] VITALS: BP 117/76
[2025-08-25 08:19] LABS: Hematocrit 32.6 % (37.0-47.0); Hemoglobin 10.9 g/dL (12.0-16.0); Mean Corp Hgb Conc. 33.4 g/dL (33.0-37.0); Mean Corpuscular Volume 92.1 fL (81.0-99.0); Platelet Count 158 10^3/uL (130-400); Red Cell Dist. Width 12.5 % (11.5-14.5)
[2025-08-25 08:38] LABS: Blood Urea Nitrogen 16 mg/dl (7-17); Calcium 9.0 mg/dl (8.4-10.2); Carbon Dioxide 29 mmol/L (22-30); Chloride 103 mmol/L (98-107); Estimated Creatinine Clearance 91 ml/min; Glucose 191 mg/dl (70-99); Potassium 4.0 mmol/L (3.5-5.1); Sodium 138 mmol/L (135-145); eGFR > 60.00
[2025-08-25] MEDS: PROTONIX IV 40 MG IV (09:23)
[2025-08-25] MEDS: BETAPACE 80 MG PO (09:29)
[2025-08-25] MEDS: NSS (PRESERVATIVE FREE) 10 ML IV (09:29)
[2025-08-25] MEDS: MUCINEX 600 MG PO (09:29)
[2025-08-25] MEDS: NOVOLOG FLEXPEN 8 UNITS SC ×2 (09:31→13:05)
[2025-08-25] MEDS: NOVOLOG FLEXPEN-MODERATE RESISTANCE 1 UNITS SC (09:31)
--- NOTE | 2025-08-25 09:31 | W.PN.HOSP.TC ---
Today's Communication/Plan
-
Cleared by CRS for discharge today
Assessment / Plan
Assessment / Plan
Peristomal cellulitis
-CT abdomen/pelvis with contrast notes large left-sided abdominal ventral hernia, largest in the abdominal pannus containing nondilated bowel with fluid and surrounding inflammation, no obstruction.
Patient wishing to avoid surgery. Appreciate colorectal surgery input, improving on IV Zosyn, tolerating LRD. Cleared by CRS for discharge on augmentin for 10 more days.
Hyponatremia
-POA. Could be related to volume depletion
-Resolved with IV fluids
History of diverticulitis
-S/p partial colectomy and ostomy, 2022 in [facility]. Records have been requested.
History of Crohn's
-On chronic prednisone 5 mg daily
Mild acute COPD exacerbation
-Oxygen dependent, on 2 L nasal cannula chronically
-Started on prednisone 40 mg daily on 08/21, steroids have been weaned, she will be back on her home dose of 5 mg daily tomorrow
-Continue bronchodilators
Paroxysmal atrial fibrillation
-Continue sotalol. Resume Eliquis when okay with surgical service.
History of TIA
DM 2 with hyperglycemia
-Not on diabetes meds in the senior living for unclear reasons. Hemoglobin A1c uncontrolled at 9.5
-Started on Lantus 10 units at bedtime, increased NovoLog 10 units AC 3 times daily -she will need insulin upon discharge
Anemia
- Likely due to her infection, trend hemoglobin
Essential hypertension -stable.
Hyperlipidemia -rosuvastatin.
Anxiety/depression
Chronic pain syndrome/chronic opiate dependence
Morbid obesity due to excess calories
DVT prophylaxis�Lovenox
Full code
Total time spent to see the patient on the floor, examine the patient, review data and lab results, discuss treatment plan with patient, nursing staff around 40 minutes.
Physical Exam
General: Obese, no acute distress
HEENT: Normocephalic, Atraumatic, EOMI, MMM
Respiratory: Clear to Auscultation bilaterally
Cardiac: Normal S1/S2, Regular Rate and Rhythm
GI: Soft, soft, tender left lower quadrant with improving erythema of skin, ostomy in place
Extremities: No Clubbing, Cyanosis, or Edema
Neuro: Nonfocal/Grossly Intact
Anticipated Discharge: Today
Subjective/Interval History
-
Date of Service: August 25, 2025
Patient's abd pain continues to improve. She is tolerating a low residue diet. No fever, no vomiting.
Objective Data
-
Labs:
Laboratory Results
08/25/25
07:15
WBC 5.4
Hgb 10.9 L
Hct 32.6 L
Plt Count 158
Sodium 138
Potassium 4.0
Chloride 103
Carbon Dioxide 29
BUN 16
Creatinine 0.8
Glucose 191 H
Calcium 9.0
Vital Signs:
Vital Signs
Temp Pulse Resp BP Pulse Ox
97.6 F 82 16 117/76 98
08/25/25 08:19 08/25/25 08:19 08/25/25 08:19 08/25/25 08:19 08/25/25 08:19
I&O
08/24/25 08/25/25 08/26/25
06:59 06:59 06:59
Intake Total 1440 / 1440 1640 / 1640
Output Total 100 / 100
Balance 1340 / 1340 1640 / 1640
[2025-08-25] MEDS: DELTASONE 10 MG PO (09:32)
[2025-08-25] MEDS: COLACE 100 MG PO (09:32)
[2025-08-25 11:00] VITALS: BP 108/60
[2025-08-25 11:42] LABS: Glucose - Point of Care 226 mg/dl (70-99)
--- NOTE | 2025-08-25 12:02 | W.PN.CRS1 ---
Today's Communication / Plan
-
as below
Assessment/Plan
-
65-year-old female with PMH of A-fib (on Eliquis), COPD, HTN, DM, anxiety/depression, elevated BMI, perforated diverticulitis s/p colostomy 2022 at OSH who presents with left-sided worsening pain near her ostomy
AFVSS
WBC 5.4
� Peristomal cellulitis; no concern for strangulated parastomal hernia or obstruction; may have a component of diverticulitis, but not reported on CT scan
�No acute surgery at this point; blanching erythema significantly improved
-patient made it very clear that she would like to avoid surgery at all costs
�Cont IV zosyn; ok to swtich to PO Augmentin for 10 days
� Continue pain control with Tylenol/oxycodone/Dilaudid as needed
�Continue home meds and inhalers; on prednisone 40 mg daily
�Appreciate hospitalist
�Colorectal to sign off; okay for discharge; please call for any questions or concerns
Subjective Data
Subjective Data
Date of Service: August 25, 2025
No overnight events, pain is improving, but still not resolved.
Denies N/V and is tolerating solid food
Having ostomy function and voiding
Objective Data
-
Vital Signs
Temp Pulse Resp BP Pulse Ox
97.3 F 59 18 108/60 98
08/25/25 11:00 08/25/25 11:00 08/25/25 11:00 08/25/25 11:00 08/25/25 11:00
Intake & Output
08/24/25 08/25/25 08/26/25
06:59 06:59 06:59
Intake Total 1440 / 1440 1640 / 1640
Output Total 100 / 100
Balance 1340 / 1340 1640 / 1640
Intake:
Oral fluids 1440 / 1440 1400 / 1400
IV fluids (Total) 40 / 40
IV piggybacks 200 / 200
Output:
Urine, Voided 100 / 100
Other:
How many times incontinent 1 2
MODERATE amount urine
Number of approximated MODERATE 3
amounts of urine
Lab Results
08/25/25 07:15
08/25/25 07:15
Physical Exam
-
General: No Acute Distress and AOx3
HEENT: Grossly Normal
Abdomen: Soft, Non Distended, Tender (Mildly tender in the LLQ without rebound or guarding) and Other (Blanching erythema has essentially resolved, only a little left towards the left flank, none near the ostomy or midline; ostomy pink and
productive of stool)
Skin: Warm and Dry
--- NOTE | 2025-08-25 13:00 | CM ---
MD entered order for discharge.
On oxygen 2 liters with Pox 96 %
Spoke with Helen from [facility] she accepted patient back.
Spoke with Deandre brother he agrees with dc to [facility] .Ambulance requested . Medical nec form completed.
Spoke with patient reviewed IMM and she agrees with dec and signed IMM IMM on chart.
Pt to return to [facility] at dc.
[facility]
Report [phone]

PLAN Return to [facility]
[2025-08-25] MEDS: NOVOLOG FLEXPEN-MODERATE RESISTANCE 3 UNITS SC (13:05)
[2025-08-25] MEDS: AUGMENTIN 875 MG/125 MG 1 TABLET PO (13:06)
[2025-08-25] MEDS: ROXICODONE 10 MG PO ×2 (13:13→17:16)
[2025-08-25 15:45] VITALS: BP 130/83
[2025-08-25 16:52] LABS: Glucose - Point of Care 323 mg/dl (70-99)
[2025-08-25] MEDS: NOVOLOG FLEXPEN 10 UNITS SC (17:13)
[2025-08-25] MEDS: NOVOLOG FLEXPEN-MODERATE RESISTANCE 7 UNITS SC (17:13)
== END 2025-08-25 18:03 | DRG 603 ==
LOC: 4 WEST ACU 06:19
PROVIDERS: Physician Assistant; ADMITTING PHYSICIAN Hospitalist; ATTENDING PHYSICIAN Family Medicine; CONSULT PHYSICIAN Surgery; EMERGENCY PHYSICIAN Emergency Medicine
DX: L03.311 Cellulitis of abdominal wall (principal); J44.1 Chronic obstructive pulmonary disease with (acute) exacerbation; E87.1 Hypo-osmolality and hyponatremia; K50.90 Crohn's disease, unspecified, without complications; Z68.41 Body mass index [BMI] 40.0-44.9, adult; F11.20 Opioid dependence, uncomplicated; C91.10 Chronic lymphocytic leukemia of B-cell type not having achieved remission; J96.11 Chronic respiratory failure with hypoxia; K43.5 Parastomal hernia without obstruction or gangrene; I48.0 Paroxysmal atrial fibrillation; I10 Essential (primary) hypertension; E78.00 Pure hypercholesterolemia, unspecified; F41.9 Anxiety disorder, unspecified; F32.A Depression, unspecified; E66.01 Morbid (severe) obesity due to excess calories; E11.65 Type 2 diabetes mellitus with hyperglycemia; G89.4 Chronic pain syndrome; D63.8 Anemia in other chronic diseases classified elsewhere; K59.00 Constipation, unspecified; K57.90 Diverticulosis of intestine, part unspecified, without perforation or abscess without bleeding; M54.50 Low back pain, unspecified; Z79.01 Long term (current) use of anticoagulants; Z79.899 Other long term (current) drug therapy; Z86.73 Personal history of transient ischemic attack (TIA), and cerebral infarction without residual deficits; Z87.891 Personal history of nicotine dependence; Z99.81 Dependence on supplemental oxygen
CPT/HCPCS: 74177; 80048; 80053; 81003; 81015; 82248; 82947; 82962; 83036; 83605; 83690; 83735; 84443; 85025; 85027; 86140; 87070; 87147; 94640; 96365; 96375; 97162; 97530; 99285; Q9967

== ENCOUNTER 2025-09-17 06:10 | Inpatient (IN) | payer MEDICARE, OTHER, SELFPAY ==
[2025-09-17] VITALS (15 sets, daily range): BP systolic 113–150; BP diastolic 62–135; BMI 42.9; BMI 42.4
--- NOTE | 2025-09-17 01:49 | ED.GENMED ---
History of Present Illness
General
Chief Complaint: Breathing Problem
Source: patient and ambulance crew
Exam Limitations: none
Time Seen by Provider: 09/17/25 01:38
Nursing documentation reviewed up to this point in time: agreed with
History of Present Illness
History of Present Illness:
65-year-old female with a past medical history of COPD, chronic respiratory failure on 2 L of home oxygen, hypertension, hyperlipidemia, atrial fibrillation on Eliquis, Crohn's disease, diabetes who presents to the emergency room from [facility]
where she lives in assisted living; she presents via EMS for evaluation of shortness of breath and scapular pain. Patient reports symptoms developed over the past 24 hours�she says she has been increasingly short of breath today and at around 10 PM
developed rather abrupt onset of left scapular pain. She has not had any cough. She denies fever. Has not noticed swelling in the legs. She denies similar symptoms in the past. She says she has chronic low back pain and tried taking her home
oxycodone shortly after onset but this did not help with the pain and dyspnea continued which prompted EMS call. She does note that for her symptoms she had an x-ray done at [facility] today but she is not sure of the results.
Past History
Past History
ED Past Medical History: Arrthythmia (Atrial fibrillation), Asthma, CAD, Cancer (CLL), COPD (Chronically O2 dependent), HTN, Hypercholesterolemia, NIDDM, Hypothyroidism, Psychiatric, Other (Chronic low back pain-narcotic dependent. Chronic
ambulatory dysfunction) and Other (Diverticulitis with perforation requiring colostomy 2021)
ED Past Surgical History: Other (Colostomy)
Social History
Tobacco: Non-smoker
Alcohol: Former
Drug: None
Personal: Single
Living: long term
Employment: Disabled
Family History
Family History: Other (Noncontributory)
Review of Systems
Review of Systems
All Other Systems: ROS reviewed and negative except as documented in HPI and ROS
Constitutional: Denies fever or chills
EENT: Denies sore throat
Respiratory: Reports trouble breathing; Denies cough
Cardiac: Denies chest pain or palpitations
ABD/GI: Denies abdominal pain
Musculoskeletal: Reports back pain (Scapular pain); Denies edema or neck pain
Neurological: Denies headache
Phy Exam
Physical Exam
Physical Exam:
General: Awake, alert, oriented x3; mild respiratory distress
Head: Normocephalic, atraumatic
Eyes: Conjunctiva normal
Throat: Airway intact, handling secretions
Neck: Trachea midline, no JVD noted
Lungs: Scattered wheezing bilaterally; patient has tachypnea and is conversationally dyspneic; she is hypoxic requiring 5 L nasal cannula (normally on 2 L)
Heart: Regular rate and rhythm, no murmurs, gallops, or rubs
Abd: Soft, non distended, nontender
Neuro: Grossly intact
Skin: Warm and dry
Extremities: Patient has edema in the legs bilaterally; extremities are warm and well-perfused
Scores
Heart Failure Risk
Heart Failure Risk Score: Not Applicable
Heart Score for Chest Pain Patients
STEMI patient?: Not applicable
Withdrawal Assessment of Alcohol
Withdrawal Assessment Completed?: Not applicable
Course
Orders/Labs/Results
Orders:
Orders
09/17/25 01:40
Electrocardiogram (*1) Urgent
Reason for Study: Shortness of Breath
EKG- Treatment ONCE
CR Chest - 2 Views Urgent
Comment:
Reason For Exam: sob, scapular pain
09/17/25 01:48
Ipratropium/Albuterol Sulfate [Duoneb] 3 ml INH R NOW STA
MethylPREDNISolone PF [Solu-Medrol Pf] 125 mg IV NOW STA
Morphine Sulfate 2 mg IV NOW STA
09/17/25 02:06
COVID-19 Antigen Urgent
Source: Nasal Swab
Complete Blood Count/With Diff Urgent
Comprehensive Metabolic Panel Urgent
NT-proBNP Urgent
PTT Urgent
Prothrombin Time Urgent
Troponin I Urgent
Influenza A+B Rapid Molecular Urgent
GABRIELLA Source: Nasal Swab
Specimen Description:
09/17/25 02:44
CT Chest PE Study Urgent
Comment:
Reason For Exam: SOB, scapular pain, hypoxia
09/17/25 03:25
HYDROmorphone [Dilaudid] 0.5 mg IV NOW STA
09/17/25 04:51
Azithromycin 500 mg/250 ml [Zithromax Infusion] 500 mg in 250 ml IV NOW
CefTRIAXone [Rocephin] 1,000 mg IV NOW STA
Abnormal Lab Results
09/17/25
02:06
WBC 11.9 H 10^3/uL
(4.8-10.8)
RBC 4.04 L 10^6/uL
(4.20-5.40)
Hgb 11.8 L g/dL
(12.0-16.0)
MCHC 31.2 L g/dL
(33.0-37.0)
Abs Immat Gran (auto) 0.1 H 10^3/uL
(0-0.05)
Absolute Neuts (auto) 7.9 H 10^3/uL
(1.4-6.5)
Absolute Monos (auto) 1.2 H 10^3/uL
(0.1-0.6)
Monocytes % 10.0 H %
(1.7-9.3)
PT 14.9 H Sec
(11.4-14.6)
Carbon Dioxide 31 H mmol/L
(22-30)
BUN 18 H mg/dl
(7-17)
Glucose 263 H mg/dl
(70-99)
09/17/25 02:06
09/17/25 02:06
Vital Signs
Initial and Last Documented VS:
Initial Vital Signs
Temp Pulse Resp BP Pulse Ox
37.4 C 87 28 137/88 93
09/17/25 01:11 09/17/25 01:11 09/17/25 01:11 09/17/25 01:11 09/17/25 01:11
Last Documented Vital Signs
Temp Pulse Resp BP Pulse Ox
37.4 C 79 15 143/75 96
09/17/25 01:11 09/17/25 04:00 09/17/25 04:00 09/17/25 04:00 09/17/25 04:00
MDM/Problems Addressed
Differential Diagnosis Includes:
Shortness of breath: COPD exacerbation, CHF, PE, anemia, ACS, pneumonia
Scapula pain: Costochondritis, pleurisy, pneumonia, pneumothorax, ACS
MDM/Problems Addressed:
65-year-old female presents for evaluation of shortness of breath and scapular pain as described above. She has increased hypoxia and tachypnea requiring 5 L nasal cannula here. Normotensive, heart rate acceptable. Afebrile. Bilateral wheezing
noted. Rest of exam as above. Will plan to check labs including a CBC and a CMP, coags. Check troponin and proBNP. Will check viral swabs. Will send for a chest x-ray. Check an EKG. Treated with steroids and nebs, pain control. Reassess
after the above.
Chest x-ray reviewed by me shows no clear acute pathology. Will check CT chest to rule out PE. I did review initial labs: CBC shows leukocytosis, CMP hyperglycemia but no DKA. Troponin negative, proBNP not elevated. Viral swabs negative.
CT chest shows no PE but does show findings suspicious for pneumonia. Will plan to treat with antibiotics. She still remains on some additional oxygen beyond her baseline although we have been able to titrate down. She still has some mild
tachypnea. Suspect COPD exacerbation and pneumonia as cause for acute on chronic respiratory failure. Will plan to admit for continued treatment. Discussed case with hospitalist.
Chronic conditions affecting care:
A-fib on Eliquis, CAD, COPD, chronic respiratory failure
*Radiology
Radiology exam reviewed: preliminary read by ED provider
*Pulse Oximetry
SaO2: 92
Nasal Cannula flow liters per minute: 4
Patient hypoxic: yes (88%)
*Critical Care Note
Total Time (30-74mins, 75-104mins- exclusive of procedures): Not Applicable
Data Reviewed
Review of Other/Old Records Reveals: Labs and Records
Source: patient, records and ambulance crew
Patient Management
Discussion with other providers: Hospitalist (Discussed with hospitalist)
Escalation/DeEscalation of care consider admission/obs:
Admission indicated
ED Attending Note
-
Portions of this chart may have been created with voice recognition software.� Occasional wrong word or��sound alike� substitutions may have occurred due to the inherent limitations of voice recognition software.
Discharge Plan
Departure
Patient Disposition: Admit
Date of Disposition: 09/17/25
Time of Disposition: 04:56
Admit to doctor: Tavon
Presentation/result/management discussed w/ accepting MD/DO: Hospitalist
Discharge Problem:
Acute and chronic respiratory failure, COPD exacerbation, Pneumonia
Prescriptions:
No Action
acetaminophen 325 mg Tablet
650 mg PO Q4H PRN (Reason: mild pain)
simethicone 180 mg Capsule
180 mg PO DAILYPRN PRN (Reason: gas)
prednisone 5 mg tablet
5 mg PO DAILY
cyanocobalamin (vitamin B-12) 1,000 mcg Tablet
1,000 mcg PO DAILY
therapeutic multivitamin Tablet
1 tab PO DAILY
magnesium hydroxide [Milk of Magnesia] 400 mg/5 mL Suspension
30 ml PO DAILY PRN (Reason: no BM in 3 days)
Rx Instructions:
give at bedtime
montelukast 10 mg tablet
10 mg PO HS
albuterol sulfate 90 mcg/actuation HFA aerosol inhaler
1 inh INHALATION R Q8HPRN PRN (Reason: sob)
fluticasone propionate 50 mcg/actuation [place],Suspension
1 spray intranasal DAILY PRN (Reason: allergies)
oxycodone 5 mg tablet
5 mg PO Q6HPRN PRN (Reason: moderate pain)
cholecalciferol (vitamin D3) 25 mcg (1,000 unit) Tablet
25 mcg PO DAILY
Eliquis 5 mg tablet
5 mg PO BID
Trelegy Ellipta 200-62.5-25 mcg blister with device
1 inh INHALATION R DAILY
Chlorophyll
60 mg PO DAILY
sotalol 80 mg Tablet
80 mg PO BID
rosuvastatin 10 mg Tablet
10 mg PO DAILY
amoxicillin-pot clavulanate 875-125 mg Tablet
1 tab PO Q12 10 Days Qty: 20 0RF
Insulin Glargine Lantus [Lantus] 12 UNITS
Subcutaneous Insulin Syringe [Syringe-Insulin] 0 UNIT
As Directed mls/hr SC HS
Ordered By: Agus Soriano MD
Last Taken: Unknown
insulin aspart U-100 100 unit/mL (3 mL) Insulin Pen
10 unit SC AC Qty: 0 0RF
Referrals:
Skyler Saez MD [Family Provider]
Interventions
Interventions:
*Risk Screen - Suicide Last Done: 09/17/25 01:11
*General Assessment Last Done: 09/17/25 01:11
*Neglect/Abuse Screening Last Done: 09/17/25 01:11
*ED- Fall Risk Assessment Last Done: 09/17/25 01:11
*ED COVID-19 Vaccine History Last Done: 09/17/25 01:11
*ED Influenza Vaccine History Last Done: 09/17/25 01:11
ED- Cardiac Assessment Last Done: 09/17/25 01:31
ED- Pulmonary Assessment Last Done: 09/17/25 01:31
Discharge Date and Time
Print Language: ICELANDIC
[2025-09-17] MEDS: DUONEB 3 ML INH ×4 (01:55→19:18)
[2025-09-17] MEDS: MORPHINE SULFATE 2 MG IV ×3 (02:10→21:43)
[2025-09-17] MEDS: SOLU-MEDROL PF 125 MG IV (02:10)
[2025-09-17 02:14] LABS: Hematocrit 37.8 % (37.0-47.0); Hemoglobin 11.8 g/dL (12.0-16.0); Mean Corp Hgb Conc. 31.2 g/dL (33.0-37.0); Mean Corpuscular Volume 93.6 fL (81.0-99.0); Nucleated Red Blood Cells % 0 %; Platelet Count 193 10^3/uL (130-400); Red Cell Dist. Width 12.8 % (11.5-14.5)
[2025-09-17 02:28] LABS: COVID-19 Antigen Negative (Negative)
[2025-09-17 02:33] LABS: INR 1.13; PT 14.9 Sec (11.4-14.6)
[2025-09-17 02:34] LABS: APTT 26.3 Sec (23.4-35.0)
[2025-09-17 02:53] LABS: Troponin I < 0.012 ng/ml
[2025-09-17 03:01] LABS: ALT (SGPT) 27 U/L (0-35); AST (SGOT) 24 U/L (14-36); Albumin 4.4 g/dl (3.5-5.0); Alkaline Phosphatase 54 U/L (38-126); Blood Urea Nitrogen 18 mg/dl (7-17); Calcium 9.3 mg/dl (8.4-10.2); Carbon Dioxide 31 mmol/L (22-30); Chloride 98 mmol/L (98-107); Glucose 263 mg/dl (70-99); Potassium 4.6 mmol/L (3.5-5.1); Sodium 136 mmol/L (135-145); Total Protein 6.7 g/dl (6.3-8.2); eGFR > 60.00
--- NOTE | 2025-09-17 03:17 | EDRN ---
patient complaining of pain, states she had no relief from morphine. Geovanna notified.
[2025-09-17] MEDS: DILAUDID 0.5 MG IV ×2 (03:43→06:16)
[2025-09-17] MEDS: ROCEPHIN 1000 MG IV (05:10)
[2025-09-17] MEDS: ZITHROMAX INFUSION 250 IV (05:20)
--- NOTE | 2025-09-17 05:42 | HPS.HSE ---
Family Physician
-
Family Physician: Skyler Saez
Chief Complaint
-
Cough, Flank Pain
History of Present Illness
Patient is a 65y F with PMH significant for diverticular disease with ostomy / parastomal hernia, obesity and COPD who presents to ED complaining of cough, SOB and L flank pain. Patient states that she has had cough x 1 week that has been
intermittently productive of green mucus. She reports increased SOB - especially with exertion. Patient noted this evening that she had sharp, shooting pain in the L ribcage / shoulder blade area that was worse with coughing, deep breathing ,
movement, etc. She was sent to the ED from [facility] for further evaluation and treatment.
Patent was last admitted here 08/21 - 08/25 for treatment of parastomal hernia and associated cellulitis.
She was also treated with brief course of increased steroids during that stay for symptoms of COPD.
Medical History
Past Medical History
Past Medical History: Reports Other
Additional Past Medical History:
COPD
Chronic Hypoxemic Respiratory Failure
Complicated Diverticulitis
Paroxysmal Atrial Fibrillation
Hypertension
DM-II
Anxiety / Depression
Morbid Obesity
Large Ventral Hernia
Past Surgical History: Reports Other
Additional Past Surgical History:
Partial Colectomy / Colostomy Formation
Bilateral MARIFER
Social History
Tobacco: Former Smoker (Quit smoking 2 years ago. > 40 pack years total use.)
Alcohol: None
Drug: None
Living: Prison
Family History
Family History: Not pertinent
Allergies / Home Medications
Allergies reflects when Allergies were last updated in [employer].
Home Medications with original date entered in [employer]
Allergy/Medication List:
Allergies
Allergy/AdvReac Type Severity Reaction Status Date / Time
atorvastatin (From Lipitor) Allergy Unknown Verified 09/17/25 01:11
roflumilast Allergy Unknown Verified 09/17/25 01:11
Home Medications
Chlorophyll 60 mg PO DAILY Supplement 07/16/25
acetaminophen 325 mg tablet 650 mg PO Q4H PRN mild pain 07/16/25
albuterol sulfate 90 mcg/actuation aerosol inhaler 1 inh inhalation R Q8HPRN PRN sob 07/16/25
apixaban 5 mg tablet (Eliquis) 5 mg PO BID Blood Clot Prevention/Tx 07/16/25
cholecalciferol (vitamin D3) 25 mcg (1,000 unit) tablet 25 mcg PO DAILY Supplement 07/16/25
cyanocobalamin (vitamin B-12) 1,000 mcg tablet 1,000 mcg PO DAILY Supplement 07/16/25
fluticasone fur. 200 mcg-umeclid 62.5 mcg-vilant 25 mcg inhalat.powder (Trelegy Ellipta) 1 inh inhalation R DAILY Lung/Breathing Issues 07/16/25
fluticasone propionate 50 mcg/actuation nasal spray,suspension 1 spray intranasal DAILY PRN allergies 07/16/25
magnesium hydroxide 400 mg/5 mL oral suspension (Milk of Magnesia) 30 ml PO DAILY PRN no BM in 3 days 07/16/25
montelukast 10 mg tablet 10 mg PO HS Allergies 07/16/25
oxycodone 5 mg tablet 5 mg PO Q6HPRN PRN moderate pain 07/16/25
prednisone 5 mg tablet 5 mg PO DAILY ANTIINFLAMMATION 07/16/25
simethicone 180 mg capsule 180 mg PO DAILYPRN PRN gas 07/16/25
therapeutic multivitamin 1 tab PO DAILY Supplement 07/16/25
rosuvastatin 10 mg tablet 10 mg PO DAILY High Cholesterol 08/21/25
sotalol 80 mg tablet 80 mg PO BID Arrhythmia 08/21/25
Insulin Glargine Lantus [Lantus] 12 units As Directed mls/hr SC HS 08/25/25
insulin aspart U-100 100 unit/mL (3 mL) subcutaneous pen 10 unit (0.1 mL) SC AC #0 mL 08/25/25
Review of Systems
-
History Source: Patient
A 12 point ROS was completed and negative except as noted: Yes
Constitutional: Reports Fatigue; Denies Fever or Chills
EENT: Denies Sore Throat
Respiratory: Reports Cough and Trouble Breathing; Denies Hemoptysis
Cardiac: Denies Chest Pain, Diaphoresis or Palpitations
Abdomen/GI: Denies Abdominal Pain, Nausea or Vomiting
: Reports Flank Pain (Left); Denies Dysuria or Frequency
Musculoskeletal: Denies Joint Pain or Edema
Neurological: Denies Dizzy or Headache
Physical Exam
Vital Signs
Vital Signs
Temp Pulse Resp BP Pulse Ox
98.9 F 79 15 143/75 96
09/17/25 05:22 09/17/25 04:00 09/17/25 04:00 09/17/25 04:00 09/17/25 04:00
Physical Exam
General: Other (65y F in no distress.)
HEENT: Other (Thick neck.)
Respiratory: Other (Coarse breath sounds throughout - minimal improvement with cough. )
Cardiac: S1/S2 and Regular Rhythm
GI: Other (Obese, L sided ostomy with stool in device. Large parastomal hernia. No significant tenderness, rebound / guarding. Pos BS.)
Musculoskeletal: No Clubbing, No Cyanosis and No Edema
Neuro: AO x 3
Laboratory Results
-
09/17/25 02:06
09/17/25 02:06
Laboratory Results
PT 14.9 Sec (11.4-14.6) H 09/17/25 02:06
INR 1.13 09/17/25 02:06
APTT 26.3 Sec (23.4-35.0) 09/17/25 02:06
Total Bilirubin 0.7 mg/dl (0.2-1.3) 09/17/25 02:06
AST 24 U/L (14-36) 09/17/25 02:06
ALT 27 U/L (0-35) 09/17/25 02:06
Alkaline Phosphatase 54 U/L (38-126) 09/17/25 02:06
Troponin I < 0.012 ng/ml 09/17/25 02:06
Impression/Plan
-
A/P: Patient is a 65y F with PMH significant for colon resection / colostomy, DM-II and COPD who presents to ED complaining of cough x 1 week and new L flank pain.
Multifocal Pneumonia
COPD
Acute on Chronic Hypoxemic Respiratory Failure secondary to the above
- Admit for further evaluation and treatment.
- CT done in the ED shows no PE but evidence of patchy, diffuse opacities c/w pneumonia.
- Abx with ceftriaxone and doxycycline for now.
- Supportive care including O2, mucolytics, etc.
- Currently requiring 4 lpm compared to her usual 2 lpm of oxygen.
- Increase prednisone to 40mg daily acutely and taper back to usual dose as able.
- Follow for clinical improvement.
Paroxysmal Atrial Fibrillation
- Stable. Continue current sotalol dosing.
- Continue Eliquis.
DM-II
- Newly started on basal : bolus insulin regimen.
- Cover with additional SSI as needed.
- A1C last month was 9.5%.
Chronic Pain Syndrome
Chronic Opioid Dependence
- Stable. No change in chronic back pain.
- Continue usual oxycodone PRN.
Diverticular Disease
Parastomal Hernia
- Stable. Continue routine ostomy care.
- No new / acute issues.
Morbid Obesity due to excess calories
- Affects all aspects of care.
- Encourage healthy diet and increased activity with goal of weight loss.
DVT Prophylaxis: On Eliquis
Code Status: Full
[2025-09-17] MEDS: ZOFRAN 4 MG IV (08:26)
[2025-09-17 08:28] LABS: Glucose - Point of Care 439 mg/dl (70-99)
[2025-09-17 08:52] LABS: Glucose 416 mg/dl (70-99)
[2025-09-17] MEDS: ROXICODONE 5 MG PO (09:16)
[2025-09-17] MEDS: MUCINEX 1200 MG PO ×2 (09:16→20:53)
[2025-09-17] MEDS: ELIQUIS 5 MG PO ×2 (09:16→20:53)
[2025-09-17] MEDS: BETAPACE 80 MG PO ×2 (09:16→20:52)
[2025-09-17] MEDS: DELTASONE 40 MG PO (09:17)
[2025-09-17] MEDS: NOVOLOG FLEXPEN-MODERATE RESISTANCE 11 UNITS SC (09:17)
[2025-09-17] MEDS: CRESTOR 10 MG PO (09:17)
[2025-09-17] MEDS: NOVOLOG FLEXPEN 10 UNITS SC ×2 (09:18→18:04)
--- NOTE | 2025-09-17 10:22 | EDCM ---
CM reviewed chart and met with pt bedside in ED. Pt is LTC resident at [facility] since 07/08/25.
Needs assistance with ADLs and personal care. Ambulates with rolling walker. Uses O2 2L NC at baseline, currently on 5L NC in ED.
Pt has ostomy.
Confirms prescription coverage.
PCP: Skyler Saez
Pharmacy: [facility] ([facility])
Anticipate return to [facility] when stable for discharge, CM will continue to follow.
--- NOTE | 2025-09-17 11:07 | W.PN.HOSP.TC ---
Addendum entered and electronically signed by Sylvain Espinosa MD 09/18/25 10:42:
Correction to physical exam: Pulmonary: Bilateral expiratory wheezes
Original Note:
Today's Communication/Plan
-
see plan
Assessment / Plan
Assessment / Plan
65y F with PMH significant for colon resection / colostomy, DM-II and COPD who presents to ED complaining of cough x 1 week and new L flank pain.
Gen: NAD, AAOx3.
Eyes: EOMI, PERRLA, no scleral icterus.
Neck: supple.
CV: RRR, +S1/S2, no m/r/g.
Resp: CTAB anteriorly, no rales, wheezes, or rhonchi.
Abd: +BS, soft, NT, ND
Skin: No rashes.
Neuro: CN 2-12 intact, non-focal.
Psych: Normal mood and affect.
CTA chest: No PE. Partial left lower lobe atelectasis/collapse. Patchy opacities in the superior segment of left lower lobe and right middle lobe suspicious for pneumonia. Hilar and especially mediastinal lymphadenopathy. Cannot exclude malignancy.
Additional evaluation recommended. Nodular left lobe of thyroid.
Acute on Chronic Hypoxemic Respiratory Failure:
-on 2L NC O2 at baseline, currently on 4L NC O2
-afebrile, minimal leukocytosis
-possible PNA on imaging, check Procal
-also due to acute COPD Exac
-cont Rocephin/Doxy for now
-cont Prednisone 40mg daily acutely and taper back to usual dose as able
Other problems:
PAF: cont sotalol/Eliquis
DM2: cont Lantus/premeal insulin/SSI/accuchecks
Chronic Pain Syndrome with Chronic Opioid Use with Dependence: cont oxycodone PRN. Pt states pain uncontrolled L flank pain. Will add IV morphine PRN.
Diverticular Disease, Parastomal Hernia: cont routine ostomy care
Morbid Obesity due to excess calories: Affects all aspects of care. Encourage healthy diet and increased activity with goal of weight loss.
FULL/Eliquis
Anticipated Discharge: Within 24 hours
Subjective/Interval History
-
Date of Service: September 17, 2025
c/o uncontrolled L flank pain
Objective Data
-
Labs:
Laboratory Results
09/17/25 09/17/25
02:06 08:33
WBC 11.9 H
Hgb 11.8 L
Hct 37.8
Plt Count 193
PT 14.9 H
INR 1.13
APTT 26.3
Sodium 136
Potassium 4.6
Chloride 98
Carbon Dioxide 31 H
BUN 18 H
Creatinine 0.7
Glucose 263 H 416 H
Calcium 9.3
Total Bilirubin 0.7
AST 24
ALT 27
Alkaline Phosphatase 54
Vital Signs:
Vital Signs
Temp Pulse Resp BP Pulse Ox
98.9 F 85 16 134/90 92
09/17/25 05:22 09/17/25 08:38 09/17/25 08:38 09/17/25 05:00 09/17/25 09:27
[2025-09-17 11:46] LABS: Glucose - Point of Care 383 mg/dl (70-99)
[2025-09-17] MEDS: NOVOLOG FLEXPEN-MODERATE RESISTANCE 9 UNITS SC ×2 (11:51→18:03)
[2025-09-17 12:26] LABS: Procalcitonin 1.07 ng/ml (0.0-0.25)
[2025-09-17] MEDS: NOVOLOG FLEXPEN SC (13:37)
[2025-09-17] MEDS: DUONEB INH (15:49)
[2025-09-17 16:55] LABS: Glucose - Point of Care 430 mg/dl (70-99)
[2025-09-17 17:56] LABS: Glucose 383 mg/dl (70-99)
[2025-09-17 19:50] LABS: Glucose - Point of Care 452 mg/dl (70-99)
[2025-09-17 20:21] LABS: Glucose 465 mg/dl (70-99)
[2025-09-17] MEDS: VIBRAMYCIN 100 MG PO (20:53)
[2025-09-17] MEDS: TYLENOL 650 MG PO (20:59)
[2025-09-17] MEDS: NOVOLOG FLEXPEN 12 UNITS SC (21:00)
[2025-09-17] MEDS: SINGULAIR 10 MG PO (21:00)
[2025-09-17 23:25] LABS: Glucose - Point of Care 432 mg/dl (70-99)
[2025-09-17] MEDS: LANTUS 0.12 UNITS SC (23:30)
[2025-09-18 00:12] LABS: Glucose 417 mg/dl (70-99)
[2025-09-18] MEDS: NOVOLOG FLEXPEN 10 UNITS SC ×2 (01:19→04:39)
[2025-09-18 03:12] VITALS: BP 125/71
[2025-09-18 03:31] LABS: Glucose - Point of Care 385 mg/dl (70-99)
[2025-09-18] MEDS: MORPHINE SULFATE 2 MG IV ×3 (04:36→20:19)
[2025-09-18] MEDS: ROCEPHIN 1000 MG IV (04:41)
[2025-09-18] MEDS: STERILE WATER FOR INJECTION 10 ML IV (04:41)
[2025-09-18 05:40] VITALS: BMI 39.9
[2025-09-18 06:23] LABS: Glucose - Point of Care 366 mg/dl (70-99)
[2025-09-18] MEDS: DUONEB 3 ML INH ×4 (07:13→19:32)
[2025-09-18 07:15] VITALS: BP 119/68
[2025-09-18 07:38] LABS: Glucose - Point of Care 333 mg/dl (70-99)
--- NOTE | 2025-09-18 07:52 | W.PN.HOSP.TC ---
Today's Communication/Plan
-
see plan
Assessment / Plan
Assessment / Plan
65y F with PMH significant for colon resection / colostomy, DM-II and COPD who presents to ED complaining of cough x 1 week and new L flank pain.
Gen: NAD, AAOx3.
Eyes: EOMI, PERRLA, no scleral icterus.
Neck: supple.
CV: RRR, +S1/S2, no m/r/g.
Resp: CTAB anteriorly, no rales, wheezes, or rhonchi.
Abd: +BS, soft, NT, ND
Skin: No rashes.
Neuro: CN 2-12 intact, non-focal.
Psych: Normal mood and affect.
CTA chest: No PE. Partial left lower lobe atelectasis/collapse. Patchy opacities in the superior segment of left lower lobe and right middle lobe suspicious for pneumonia. Hilar and especially mediastinal lymphadenopathy. Cannot exclude malignancy.
Additional evaluation recommended. Nodular left lobe of thyroid.
Acute on Chronic Hypoxemic Respiratory Failure:
-due to acute B/L PNA (procal POS) and acute COPD Exac
-on 2L NC O2 at baseline, was on 4L NC O2, now weaned to 3L NC O2
-afebrile, minimal leukocytosis has resolved
-cont Rocephin/Doxy
-cont Prednisone 40mg daily acutely and taper back to usual dose as able
-pulm to see 09/19/25
-currently has Acapella, add IS
DM2:
-severely uncontrolled
-change Lantus to 30U QAM
-increase premeal aspart to 14U
-change SSI to hi-res
-check a1c
Other problems:
PAF: cont sotalol/Eliquis
Chronic Pain Syndrome with Chronic Opioid Use with Dependence: cont oxycodone/IV morphine PRN. Add lidoderm patch to L flank.
Diverticular Disease, Parastomal Hernia: cont routine ostomy care
Morbid Obesity due to excess calories: Affects all aspects of care. Encourage healthy diet and increased activity with goal of weight loss.
FULL/Eliquis
Anticipated Discharge: 24 - 48 hours
Subjective/Interval History
-
Date of Service: September 18, 2025
Objective Data
-
Labs:
Laboratory Results
09/17/25 09/17/25 09/18/25
19:59 23:37 06:47
WBC Pending
Hgb Pending
Hct Pending
Plt Count Pending
Sodium Pending
Potassium Pending
Chloride Pending
Carbon Dioxide Pending
BUN Pending
Creatinine Pending
Glucose 465 H* 417 H Pending
Calcium Pending
Vital Signs:
Vital Signs
Temp Pulse Resp BP Pulse Ox
97.6 F 78 18 125/71 96
09/18/25 03:12 09/18/25 07:28 09/18/25 07:28 09/18/25 03:12 09/18/25 07:28
I&O
09/17/25 09/18/25 09/19/25
06:59 06:59 06:59
Intake Total 480 / 480
Balance 480 / 480
[2025-09-18 07:54] LABS: Hematocrit 35.6 % (37.0-47.0); Hemoglobin 10.8 g/dL (12.0-16.0); Mean Corp Hgb Conc. 30.3 g/dL (33.0-37.0); Mean Corpuscular Volume 94.9 fL (81.0-99.0); Platelet Count 185 10^3/uL (130-400); Red Cell Dist. Width 12.8 % (11.5-14.5)
[2025-09-18 08:05] LABS: Blood Urea Nitrogen 25 mg/dl (7-17); Calcium 9.2 mg/dl (8.4-10.2); Carbon Dioxide 30 mmol/L (22-30); Chloride 97 mmol/L (98-107); Estimated Creatinine Clearance 119 ml/min; Glucose 324 mg/dl (70-99); Potassium 4.4 mmol/L (3.5-5.1); Sodium 135 mmol/L (135-145); eGFR > 60.00
[2025-09-18] MEDS: VIBRAMYCIN 100 MG PO ×2 (08:30→20:12)
[2025-09-18] MEDS: DELTASONE 40 MG PO (08:30)
[2025-09-18] MEDS: CRESTOR 10 MG PO (08:30)
[2025-09-18] MEDS: MUCINEX 1200 MG PO ×2 (08:30→20:13)
[2025-09-18] MEDS: ELIQUIS 5 MG PO ×2 (08:30→20:13)
[2025-09-18] MEDS: BETAPACE 80 MG PO ×2 (08:30→20:13)
[2025-09-18] MEDS: NOVOLOG FLEXPEN 14 UNITS SC ×4 (08:31→18:47)
[2025-09-18] MEDS: ROXICODONE 5 MG PO ×2 (08:31→15:50)
[2025-09-18] MEDS: FLUSH (NSS) 1 FLUSH IV (08:31)
[2025-09-18] MEDS: NOVOLOG FLEXPEN-HIGH RESISTANCE 10 UNITS SC (08:32)
[2025-09-18] MEDS: NOVOLOG FLEXPEN SC (08:51)
[2025-09-18] MEDS: NOVOLOG FLEXPEN-MODERATE RESISTANCE SC (08:52)
[2025-09-18] MEDS: LANTUS 0.3 UNITS SC (09:04)
[2025-09-18] MEDS: LIDOCAINE 4% PATCH 1 PATCH TOPICAL (10:59)
[2025-09-18 11:28] VITALS: BP 116/59
--- NOTE | 2025-09-18 11:48 | CON.PUL ---
Consultation
Consultation Request
Date/Time Consultation Requested: 09/18/2025
Date/Time Consultation Performed: 09/18/2025
Medical History
-
Chief Complaint: Shortness of breath
History of Present Illness:
Patient is a very pleasant 65-year-old female who presented to the hospital with cough and shortness of breath. Patient has a complex past medical history including diverticular disease s/p perforation requiring colostomy complicated by parastomal
hernia. Patient also has morbid obesity, home oxygen dependent COPD also on Trelegy, who developed cough, shortness of breath and left flank discomfort. Patient reports that she had exposure to other people with similar symptoms and started
producing green phlegm with increased coughing, worsening over the last week despite Trelegy and as needed albuterol. The symptoms brought her to the emergency room. A CT scan was performed which was suggestive of multifocal pneumonia as well as
left lower lobe partial atelectasis and mediastinal and hilar lymphadenopathy. She was noted to have COPD exacerbation and was started on bronchodilators and steroids. Antibiotics were also initiated for pneumonia. Pulmonary consultation was
requested for further input.
Past Medical History
Past Medical History: Reports Other
Additional Past Medical History:
COPD, home oxygen dependent
Chronic Hypoxemic Respiratory Failure
Complicated Diverticulitis
Paroxysmal Atrial Fibrillation
Hypertension
DM-II
Anxiety / Depression
Morbid Obesity
Large Ventral Hernia
Past Surgical History: Reports Other
Additional Past Surgical History:
Partial Colectomy / Colostomy Formation
Bilateral MARIFER
Social History
Tobacco: Former Smoker (Quit smoking 2 years ago. > 40 pack years total use.)
Alcohol: None
Drug: None
Living: Retirement
Family History
Family History: Not pertinent
Allergies / Home Medications
Allergies
Allergy/AdvReac Type Severity Reaction Status Date / Time
atorvastatin (From Lipitor) Allergy Unknown Verified 09/17/25 01:11
roflumilast Allergy Unknown Verified 09/17/25 01:11
Home Medications
�Medication �Instructions �Recorded �Confirmed �Last Taken �Type
Chlorophyll 60 mg PO DAILY Supplement 07/16/25 09/17/25 07/16/25 09:20 History
acetaminophen 325 mg tablet 650 mg PO Q4H PRN mild pain 07/16/25 09/17/25 07/16/25 09:25 History
albuterol sulfate 90 mcg/actuation 1 inh inhalation R Q8HPRN PRN sob 07/16/25 09/17/25 Unknown History
aerosol inhaler
apixaban 5 mg tablet (Eliquis) 5 mg PO BID Blood Clot 07/16/25 09/17/25 07/16/25 09:20 History
Prevention/Tx
cholecalciferol (vitamin D3) 25 25 mcg PO DAILY Supplement 07/16/25 09/17/25 07/16/25 09:20 History
mcg (1,000 unit) tablet
cyanocobalamin (vitamin B-12) 1,000 mcg PO DAILY Supplement 07/16/25 09/17/25 07/16/25 09:20 History
1,000 mcg tablet
fluticasone fur. 200 mcg-umeclid 1 inh inhalation R DAILY 07/16/25 09/17/25 07/16/25 09:20 History
62.5 mcg-vilant 25 mcg Lung/Breathing Issues
inhalat.powder (Trelegy Ellipta)
fluticasone propionate 50 1 spray intranasal DAILY PRN 07/16/25 09/17/25 Unknown History
mcg/actuation nasal allergies
spray,suspension
magnesium hydroxide 400 mg/5 mL 30 ml PO DAILY PRN no BM in 3 days 07/16/25 09/17/25 Unknown History
oral suspension (Milk of Magnesia)
montelukast 10 mg tablet 10 mg PO HS Allergies 07/16/25 09/17/25 07/15/25 21:30 History
oxycodone 5 mg tablet 5 mg PO Q6HPRN PRN moderate pain 07/16/25 09/17/25 07/16/25 05:45 History
prednisone 5 mg tablet 5 mg PO DAILY ANTIINFLAMMATION 07/16/25 09/17/25 07/16/25 09:20 History
simethicone 180 mg capsule 180 mg PO DAILYPRN PRN gas 07/16/25 09/17/25 Unknown History
therapeutic multivitamin 1 tab PO DAILY Supplement 07/16/25 09/17/25 07/16/25 09:20 History
rosuvastatin 10 mg tablet 10 mg PO DAILY High Cholesterol 08/21/25 09/17/25 Unknown History
sotalol 80 mg tablet 80 mg PO BID Arrhythmia 08/21/25 09/17/25 Unknown History
Insulin Glargine Lantus As Directed mls/hr SC HS 08/25/25 09/17/25 Unknown Rx
[Lantus] 12 units
insulin aspart U-100 100 unit/mL 10 unit (0.1 mL) SC AC #0 mL 08/25/25 09/17/25 Unknown Rx
(3 mL) subcutaneous pen
Review of Systems
-
Hematologic/Lymphatic: Other (All 14 systems reviewed and negative except as stated above in the history of present illness.)
Vitals / Labs / Diagnostic Testing
Vital Signs
Temp Pulse Resp BP Pulse Ox
97.7 F 77 16 116/59 93
09/18/25 11:28 09/18/25 11:28 09/18/25 11:28 09/18/25 11:28 09/18/25 11:28
Lab Data
09/18/25 06:47
09/18/25 06:47
Microbiology
09/17/25 02:06 Nasal Swab Influenza Types A & B (GINETTE) - Final
Negative for Influenza A & B, NAAT
Negative results must be combined with clinical observations
and patient history.
Nucleic Acid Amplification test (NAAT)performed on the
[employer] platform.
Diagnostic Testing:
Physical Exam
-
HEENT: Normocephalic
Cardiovascular: S1/S2 and Peripheral Edema
Respiratory: Wheeze (Mild end expiratory wheezing)
GI: Soft and Other (Nontender, hernia noted.)
Neurology: Awake and Oriented
Skin: Warm
General: Comfortable
Assessment
-
#1. Acute on chronic hypoxic respiratory failure
- Patient at baseline on 2 L supplemental oxygen. Suspect multifactorial with morbid obesity, chronic left lower lobe atelectasis and underlying COPD with pneumonia
- Acute worsening likely related to concomitant pneumonia
- Continue supplemental O2, wean as tolerated
-Bilateral pedal edema on exam, appears volume overloaded, initiate Lasix 20 mg IV daily
#2. Multifocal pneumonia
- Patchy opacities noted in right middle lobe as well as superior segment of left lower lobe, concerning for pneumonia
- Influenza A, B, COVID-19 screen negative. WBC count has been improving, patient is afebrile
- Continue doxycycline and ceftriaxone as ordered
#2. Left lower lobe atelectasis/collapse
- Start airway clearance measures with hypertonic saline and albuterol scheduled
- Chest physical therapy, continue with antibiotics, add Mucinex
- Incentive spirometry
- CT abdomen pelvis from 07/2025 includes limited lung review, shows persistent left lower lobe atelectasis.
- Needs continued follow-up as outpatient, if volume loss persists despite above measures, will need bronchoscopy for endobronchial evaluation
#3. Mediastinal and Hilar Lymphadenopathy
- Suspect reactive in the setting of pneumonia. 4R is particularly enlarged
- However malignancy cannot be ruled out particularly with history of smoking.
- Needs outpatient follow-up CT chest in 8 to 12 weeks, if persistent will need bronchoscopy and EBUS with TBNA of lymph nodes
- Outpatient follow-up with [facility] pulmonary clinic, information added to discharge section
#4. COPD with Acute exacerbation
- Patient reports that she followed up with a investment strategist in [place] prior to moved and has known history of COPD. At baseline she is on Trelegy 200 once daily, supplemental oxygen.
- Continue DuoNeb scheduled along with prednisone and antibiotics
#5. Morbid obesity
- High likelihood of underlying sleep disordered breathing
- Patient needs further evaluation with an outpatient sleep study
- Continue supplemental oxygen for now
- Check VBG in a.m.
Other medical diagnoses:
- Diabetes mellitus, poorly controlled
- Nodular left lobe of thyroid
- Paroxysmal atrial fibrillation, on sotalol and Eliquis
- Chronic pain syndrome with chronic opioid use
- Perforated diverticular disease, s/p colostomy in 2022 with parastomal hernia
- H/o Smoking. >40 pack years history. Quit 2 years ago.
Patient will need outpatient follow-up with [facility] pulmonary clinic, information added to discharge section.
Total time spent on this consultation/encounter __65__ minutes which includes review of history, physical exam, medications, laboratory data, personal review of imaging, extensive review of outpatient records, discussion with care team and
respiratory therapy.
Data:
CT Chest 08/2025: No evidence of central pulmonary embolism.
Partial left lower lobe atelectasis/collapse.
Patchy opacities in the superior segment of left lower lobe and right middle lobe suspicious for pneumonia.
Hilar and especially mediastinal lymphadenopathy. Cannot exclude malignancy. Additional evaluation recommended.
Nodular left lobe of thyroid.
[2025-09-18 12:00] LABS: Glucose - Point of Care 392 mg/dl (70-99)
[2025-09-18 12:09] LABS: Glycohemoglobin (HgbA1c) 10.4 % (4.0-5.6)
[2025-09-18] MEDS: NOVOLOG FLEXPEN-HIGH RESISTANCE 12 UNITS SC (13:04)
[2025-09-18] MEDS: SODIUM CHLORIDE 3% FOR INHALATION 1 VIAL INH ×2 (15:20→19:32)
[2025-09-18 15:30] VITALS: BP 145/65
[2025-09-18] MEDS: LASIX 20 MG IV (15:50)
[2025-09-18] MEDS: FLUSH (NSS) 2 FLUSH IV (15:51)
[2025-09-18 16:49] LABS: Glucose - Point of Care 585 mg/dl (70-99)
[2025-09-18 18:17] LABS: Glucose 595 mg/dl (70-99)
--- NOTE | 2025-09-18 18:20 | PTCARENOTE ---
Pt's evening blood sugar out of range high on glucometer, ordered stat venous glucose. Venous glucose resulted at this time at 595. Made Dr. Yusuf aware of venous glucose result. Order obtained to give 14 units novolog in addition to the Novolog 14
units standing with dinner for a total of 28 units. Updated floor service worker spring RN to recheck blood sugar in 2 hours.
[2025-09-18] MEDS: NOVOLOG FLEXPEN-HIGH RESISTANCE SC (18:46)
[2025-09-18 19:55] VITALS: BP 95/65
[2025-09-18] MEDS: REMOVE LIDOCAINE PATCH REMOVE (20:13)
[2025-09-18] MEDS: MIRALAX 17 GRAMS PO (20:26)
[2025-09-18] MEDS: SINGULAIR 10 MG PO (20:34)
[2025-09-18 21:07] LABS: Glucose - Point of Care 588 mg/dl (70-99)
[2025-09-18 22:08] LABS: Glucose 612 mg/dl (70-99)
--- NOTE | 2025-09-18 22:23 | W.PN.UPDATE ---
Update Note
Progress Note Update
-Bs is 612, Anion gap is 9. Patient currently on steroids. Today Insulin doses adjusted during the day and SSI changed to hi-res. Hgb a1c is 10.4 this am.
Will continue adding coverage as needed.
[2025-09-18] MEDS: NOVOLOG FLEXPEN 16 UNITS SC (22:27)
[2025-09-18 22:35] LABS: Blood Urea Nitrogen 36 mg/dl (7-17); Calcium 9.4 mg/dl (8.4-10.2); Carbon Dioxide 28 mmol/L (22-30); Chloride 94 mmol/L (98-107); Estimated Creatinine Clearance 102 ml/min; Potassium 4.9 mmol/L (3.5-5.1); Sodium 131 mmol/L (135-145); eGFR > 60.00
[2025-09-19] VITALS (7 sets, daily range): BP systolic 100–132; BP diastolic 66–81; BMI 39.9
[2025-09-19 00:30] LABS: Glucose - Point of Care 476 mg/dl (70-99)
[2025-09-19 01:17] LABS: Glucose 456 mg/dl (70-99)
[2025-09-19] MEDS: NOVOLOG FLEXPEN 14 UNITS SC ×3 (01:51→13:47)
[2025-09-19] MEDS: MORPHINE SULFATE 2 MG IV ×3 (03:41→18:27)
[2025-09-19] MEDS: STERILE WATER FOR INJECTION 10 ML IV (03:42)
[2025-09-19] MEDS: ROCEPHIN 1000 MG IV (03:43)
[2025-09-19 04:11] LABS: Glucose - Point of Care 303 mg/dl (70-99)
[2025-09-19] MEDS: NOVOLOG FLEXPEN 10 UNITS SC (05:31)
[2025-09-19] MEDS: SODIUM CHLORIDE 3% FOR INHALATION 1 VIAL INH ×3 (07:20→19:51)
[2025-09-19] MEDS: DUONEB 3 ML INH ×4 (07:20→19:51)
--- NOTE | 2025-09-19 07:38 | PN.DE.MGMTRT ---
Insulin Management
- -
09/19/2025: Diabetes Management Consult
65 year old female who presented to the hospital from [facility] for further evaluation and treatment of cough, shortness of breath and left flank discomfort.
Patient was last admitted here 08/21 - 08/25 for treatment of parastomal hernia and associated cellulitis.
PMH: COPD on home oxygen and Trelegy, diverticular disease s/p perforation requiring colostomy complicated by parastomal hernia, obesity and T2DM
She was noted to have Acute on Chronic Hypoxemic Respiratory Failure due to COPD exacerbation. CT Chest was suggestive of multifocal pneumonia as well as left lower lobe partial atelectasis and mediastinal and hilar lymphadenopathy. Patient was
started on bronchodilators and steroids, now contributing to hyperglycemia.
Patient awake, alert, oriented, resting in bed, offers co complaints, able to discuss diabetes care plan.
States she was taking Lantus 12 units @HS and lispro 10 units AC prior to admission. Uses CGM- Crow. A1C 10.4%, Cr 0.7, eGFR >60
09/18 noted for persistent Hyperglycemia, glucose trended up to 585, Lantus dose was changed to AM from 12 units to 30 units and NovoLog dose was increased from 10 units to 14 units with no improvement. HS glucose was 612, down to 456 @ [place].
09/19 Steroid dose has been tapered down to Prednisone 40mg daily. Pre-breakfast glucose 211 and 268 pre-lunch, required 4-7 units of corrective insulin.
Will increase NovoLog to 18 units AC. Will add HS Lantus 20 units, 1st dose tonight at HS. Change diet to 1800. Cont corrective insulin with meals
Discussed with Nurse. Cont to monitor.
Diabetes History
- -
Type of Diabetes: 2 requiring insulin
Pre-Admission Diabetes Regimen
09/18/25 09/18/25
06:47 21:35
Creatinine 0.6 0.7
Lab Results
Hemoglobin A1c 10.4 % (4.0-5.6) H 09/18/25 06:47
Insulin Pump Settings
IP Diabetes Regimen
09/18/25 09/18/25 09/18/25
06:47 07:27 11:54
Glucose 324 H
POC Glucose 333 H 392 H
09/18/25 09/18/25 09/18/25
16:36 16:50 16:57
Glucose Cancelled 595 H*
POC Glucose 585 H*
09/18/25 09/18/25 09/19/25
21:01 21:35 00:29
Glucose 612 H*
POC Glucose 588 H* 476 H*
09/19/25 09/19/25
00:42 04:10
Glucose 456 H*
POC Glucose 303 H
Meal type: Lunch
Amount consumed: 100%
Patient Education
[2025-09-19 08:15] LABS: Glucose - Point of Care 211 mg/dl (70-99)
[2025-09-19 08:31] LABS: Venous Blood Gas B.E. 7.5 mmol/L (-4 to +4); Venous Blood Gas O2 Sat % 86.1 %
[2025-09-19] MEDS: DELTASONE 40 MG PO (08:33)
[2025-09-19] MEDS: ELIQUIS 5 MG PO ×2 (08:33→20:18)
[2025-09-19] MEDS: VIBRAMYCIN 100 MG PO ×2 (08:33→20:18)
[2025-09-19] MEDS: LANTUS 0.3 UNITS SC (08:33)
[2025-09-19] MEDS: BETAPACE 80 MG PO ×2 (08:33→20:19)
[2025-09-19] MEDS: CRESTOR 10 MG PO (08:33)
[2025-09-19] MEDS: MUCINEX 1200 MG PO ×2 (08:33→20:18)
[2025-09-19] MEDS: LASIX 20 MG IV (08:34)
[2025-09-19] MEDS: LIDOCAINE 4% PATCH 1 PATCH TOPICAL (08:34)
[2025-09-19] MEDS: NOVOLOG FLEXPEN-HIGH RESISTANCE 4 UNITS SC (08:35)
--- NOTE | 2025-09-19 09:24 | W.PN.PUL3 ---
Today's Communication / Plan
-
Recurrent COPD exacerbations but this is not responding to therapy and seems to be declining int he past 1-2 years despite treatment
She cannot perform respiratory exercises due to her hernia
She is maintained on chronic steroids but unclear benefit
Consideration for CRS consult to decide on operability, I spoke to patient regarding this, she seems to be more agreeable to intervention now
Discussed with care team
We will arrange OP FU as well
Assessment
-
Patient is a very pleasant 65-year-old female who presented to the hospital with cough and shortness of breath. Patient has a complex past medical history including diverticular disease s/p perforation requiring colostomy complicated by parastomal
hernia. Patient also has morbid obesity, home oxygen dependent COPD also on Trelegy, who developed cough, shortness of breath and left flank discomfort. Patient reports that she had exposure to other people with similar symptoms and started
producing green phlegm with increased coughing, worsening over the last week despite Trelegy and as needed albuterol. The symptoms brought her to the emergency room. A CT scan was performed which was suggestive of multifocal pneumonia as well as
left lower lobe partial atelectasis and mediastinal and hilar lymphadenopathy. She was noted to have COPD exacerbation and was started on bronchodilators and steroids. Antibiotics were also initiated for pneumonia. Pulmonary consultation was
requested for further input.
Acute on chronic hypoxic respiratory failure
Multifocal pneumonia
Left lower lobe atelectasis/collapse
Mediastinal and Hilar Lymphadenopathy
Large abdominal hernia
Additional Past Medical History:
COPD, home oxygen dependent
Chronic Hypoxemic Respiratory Failure
Complicated Diverticulitis
Paroxysmal Atrial Fibrillation, on sotalol and Eliquis
Hypertension
DM-II
Anxiety / Depression
Morbid Obesity
Large Ventral Hernia
Former Smoker (Quit smoking 2 years ago. > 40 pack years total use.)
Partial Colectomy / Colostomy Formation
Bilateral MARIFER
Nodular left lobe of thyroid
Chronic pain syndrome with chronic opioid use
Perforated diverticular disease, s/p colostomy in 2022 with parastomal hernia
Plan
Patient at baseline on 2 L supplemental oxygen. Suspect multifactorial with morbid obesity, chronic left lower lobe atelectasis and underlying COPD with pneumonia
Continue supplemental O2, wean as tolerated
Bilateral pedal edema on exam, appears volume overloaded, initiate Lasix 20 mg IV daily
PCT slightly elevated 1.07
- Patchy opacities noted in right middle lobe as well as superior segment of left lower lobe, concerning for pneumonia
- Influenza A, B, COVID-19 screen negative. WBC count has been improving, patient is afebrile
- Continue doxycycline and ceftriaxone as ordered
Atelectasis
- Start airway clearance measures with hypertonic saline and albuterol scheduled
- Chest physical therapy, continue with antibiotics, add Mucinex
- Incentive spirometry
- CT abdomen pelvis from 07/2025 includes limited lung review, shows persistent left lower lobe atelectasis.
She has been impacted with her hernia, which may be limiting her breathing
Mediastinal and Hilar Lymphadenopathy
- Suspect reactive in the setting of pneumonia. 4R is particularly enlarged
- However malignancy cannot be ruled out particularly with history of smoking.
- Needs outpatient follow-up CT chest in 8 to 12 weeks, if persistent will need bronchoscopy and EBUS with TBNA of lymph nodes
- Outpatient follow-up with [facility] pulmonary clinic, information added to discharge section
COPD with Acute exacerbation
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 At baseline she is on Trelegy 200 once daily, supplemental oxygen.
- Continue DuoNeb scheduled along with prednisone and antibiotics
We will obtain records (Dr Alas, [place]) for OP FU
She notes that she has had decline in function and multiple recurrent flares in the past year, almost monthly, not resolved
I am concerned could be related to hernia impacting her ability to manage COPD
Morbid obesity
- High likelihood of underlying sleep disordered breathing
- Patient needs further evaluation with an outpatient sleep study
- Continue supplemental oxygen for now
- Check VBG in a.m -- --she is limited with BIPAP given her abdominal exam, this would worsen distention
Patient will need outpatient follow-up with [facility] pulmonary clinic, information added to discharge section.
Data:
CT Chest 08/2025: No evidence of central pulmonary embolism. Partial left lower lobe atelectasis/collapse. Patchy opacities in the superior segment of left lower lobe and right middle lobe suspicious for pneumonia. Hilar and especially mediastinal
lymphadenopathy. Cannot exclude malignancy. Additional evaluation recommended. Nodular left lobe of thyroid.
CT AP 08/21/25- Large left-sided abdominal ventral hernias again seen largest in the abdominal pannus containing nondilated bowel with fluid and surrounding inflammation, no findings to suggest intestinal obstruction. Diffuse fatty liver.
Total time spent on this consultation/encounter __52__ minutes which includes review of history, physical exam, medications, laboratory data, personal review of imaging, extensive review of outpatient records, discussion with care team and
respiratory therapy.
Subjective Data
-
Date of Service:
Date of Service: September 19, 2025
Chief Complaint: Pulmonary Follow Up
Subjective:
Feels about the same, she cannot tell if she is improved
Pain at her belly, difficulty performing breathing exercises due to her hernia
Objective Data
Data Reviewed
Vital Signs / I&O / Oxygen:
Vital Signs
Temp Pulse Resp BP Pulse Ox
98.2 F 72 20 124/81 97
09/19/25 08:30 09/19/25 08:30 09/19/25 08:30 09/19/25 08:30 09/19/25 08:30
Intake and Output
09/18/25 09/19/25 09/20/25
06:59 06:59 06:59
Intake Total 480 / 480 1200 / 1200
Balance 480 / 480 1200 / 1200
SaO2 97
Nasal Cannula flow liters per 2
minute
Physical Exam
General: Comfortable and Other (NAD, obese)
HEENT: Normocephalic, Anicteric and Moist Mucous Membranes
Cardiovascular: S1-S2 and Regular Rhythm
Respiratory: Clear and Non-Labored Respirations
GI: Distended and Other (palpable hernia, large; ostomy present)
Neurology: Awake, Alert, Oriented and No Motor Deficits
Skin: Warm and Good Color
Labs/Micro/Reports
Lab Data
09/18/25 06:47
09/19/25 00:42
Microbiology
09/17/25 02:06 Nasal Swab Influenza Types A & B (GINETTE) - Final
Negative for Influenza A & B, NAAT
Negative results must be combined with clinical observations
and patient history.
Nucleic Acid Amplification test (NAAT)performed on the
[employer] platform.
[2025-09-19 12:22] LABS: Glucose - Point of Care 268 mg/dl (70-99)
[2025-09-19] MEDS: NOVOLOG FLEXPEN-HIGH RESISTANCE 7 UNITS SC (13:47)
--- NOTE | 2025-09-19 13:58 | W.PN.HOSP.TC ---
Today's Communication/Plan
-
Assessment / Plan
Assessment / Plan
65y F with PMH significant for colon resection / colostomy, DM-II and COPD who presents to ED complaining of cough x 1 week and new L flank pain.
Gen: NAD, AAOx3.
Eyes: EOMI, PERRLA, no scleral icterus.
Neck: supple.
CV: RRR, +S1/S2, no m/r/g.
Resp: Diminished breath sounds throughout
Abd: +BS, soft, NT, ND
Skin: No rashes.
Neuro: CN 2-12 intact, non-focal.
Psych: Normal mood and affect.
CTA chest: No PE. Partial left lower lobe atelectasis/collapse. Patchy opacities in the superior segment of left lower lobe and right middle lobe suspicious for pneumonia. Hilar and especially mediastinal lymphadenopathy. Cannot exclude malignancy.
Additional evaluation recommended. Nodular left lobe of thyroid.
Acute on Chronic Hypoxemic Respiratory Failure:
-due to acute B/L PNA (procal POS) and acute COPD Exac
-on 2L NC O2 at baseline, was on 4L NC O2, now weaned to 3L NC O2
-afebrile, minimal leukocytosis has resolved
-cont Rocephin/Doxy
-cont Prednisone 40mg daily acutely and taper back to usual dose as able
-Partially discussed case with pulmonary today. Can assist by could be related to parastomal hernia causing increased intra-abdominal pressure that
-currently has Acapella, add IS
DM2:
-severely uncontrolled
-change Lantus to 30U QAM
-increase premeal aspart to 14U
-change SSI to hi-res
-check a1c
Parastomal hernia
-Pulm concered that it may need to be repaired as this oculd be causing increae in intraabdominal pressure. Thereby, pushing up against the diaphragm leading to SOB
Other problems:
PAF: cont sotalol/Eliquis
Chronic Pain Syndrome with Chronic Opioid Use with Dependence: cont oxycodone/IV morphine PRN. Add lidoderm patch to L flank.
Diverticular Disease, Parastomal Hernia: cont routine ostomy care
Morbid Obesity due to excess calories: Affects all aspects of care. Encourage healthy diet and increased activity with goal of weight loss.
FULL/Eliquis
Anticipated Discharge: 24 - 48 hours
Subjective/Interval History
-
Date of Service: September 19, 2025
Seen and examined. No new complaints. No acute overnight events.
Objective Data
-
Vital Signs:
Vital Signs
Temp Pulse Resp BP Pulse Ox
98.2 F 72 18 100/66 95
09/19/25 11:33 09/19/25 11:33 09/19/25 11:33 09/19/25 11:33 09/19/25 11:33
I&O
09/18/25 09/19/25 09/20/25
06:59 06:59 06:59
Intake Total 480 / 480 1200 / 1200
Balance 480 / 480 1200 / 1200
[2025-09-19 17:00] LABS: Glucose - Point of Care 496 mg/dl (70-99)
--- NOTE | 2025-09-19 17:13 | CM ---
Addendum entered by Judy Montalvo 09/20/25 08:40:
correction: Pt lives at [facility]
Original Note:
Reviewed chart. IMM completed. Met with pt bedside. Continues with IV Lasix and IV abxs. O2 at 2LPN at 97%
Plan: DC to Independent living at [facility] when stable
[2025-09-19 18:38] LABS: Glucose 451 mg/dl (70-99)
[2025-09-19] MEDS: NOVOLOG FLEXPEN-HIGH RESISTANCE 14 UNITS SC (18:55)
[2025-09-19] MEDS: NOVOLOG FLEXPEN 18 UNITS SC (18:56)
[2025-09-19 20:18] LABS: Glucose - Point of Care 502 mg/dl (70-99)
[2025-09-19] MEDS: SINGULAIR 10 MG PO (20:18)
[2025-09-19] MEDS: REMOVE LIDOCAINE PATCH 1 PATCH REMOVE (20:19)
[2025-09-19 21:16] LABS: Glucose 476 mg/dl (70-99)
[2025-09-19] MEDS: LANTUS 0.2 UNITS SC (21:47)
[2025-09-19] MEDS: NOVOLOG FLEXPEN 15 UNITS SC (21:47)
[2025-09-19 23:55] LABS: Glucose - Point of Care 329 mg/dl (70-99)
[2025-09-20] MEDS: MORPHINE SULFATE 2 MG IV ×4 (01:35→21:12)
[2025-09-20] MEDS: STERILE WATER FOR INJECTION 10 ML IV (03:20)
[2025-09-20] MEDS: ROCEPHIN 1000 MG IV (03:20)
[2025-09-20 03:32] LABS: Glucose - Point of Care 200 mg/dl (70-99)
[2025-09-20 03:40] VITALS: BP 126/80
[2025-09-20 06:00] VITALS: BMI 39.9
[2025-09-20 07:11] VITALS: BP 115/66
[2025-09-20] MEDS: DUONEB 3 ML INH ×4 (07:30→19:35)
[2025-09-20] MEDS: SODIUM CHLORIDE 3% FOR INHALATION 1 VIAL INH ×3 (07:31→19:36)
--- NOTE | 2025-09-20 07:39 | PN.DE.MGMTRT ---
Insulin Management
- -
09/20/2025: Diabetes Management Consult Follow up
65 year old female who presented to the hospital from [facility] 09/17 for further evaluation and treatment of cough, shortness of breath and left flank discomfort.
Patient was last admitted here 08/21 - 08/25 for treatment of parastomal hernia and associated cellulitis.
PMH: COPD on home oxygen and Trelegy, diverticular disease s/p perforation requiring colostomy complicated by parastomal hernia, obesity and T2DM
She was noted to have Acute on Chronic Hypoxemic Respiratory Failure due to COPD exacerbation. CT Chest was suggestive of multifocal pneumonia as well as left lower lobe partial atelectasis and mediastinal and hilar lymphadenopathy. Patient was
started on bronchodilators and steroids, now contributing to hyperglycemia. Prior to admission was taking Lantus 12 units @HS and lispro 10 units AC. Uses CGM- Crow. A1C 10.4%, Cr 0.7, eGFR >60
Patient is awake, alert, oriented, resting in bed, offers co complaints, able to discuss diabetes care plan. States she really doesn't know what insulin she gets, the nurses at [facility] test her sugar and give her insulin. Described to patient her
A1C indicates poor control so doses of insulin would be adjusted while she is here and should continue at discharge.
09/19 Steroid dose has been tapered down to Prednisone 40mg daily. Glucose yesterday 211 to 502 @ hs. Required 7 to 14 units corrective insulin in addition to 18 units AC.
09/20 Continues on Prednisone 40 mg daily. Fasting glucose 135, novolog 15 units given with 1 unit corrective, lantus increased from 30 to 35 in AM and hs lantus to remain 20 units (patient did receive 15 units of novolog at HS for glucose 502 so
may require additional lantus but will observe at 20 units). Pre lunch glucose 161, will continue NovoLog 15 units AC with and reduce high corrective to moderate corrective insulin.
Discussed with Nurse. Cont to monitor.
Diabetes History
- -
Type of Diabetes: 2 requiring insulin
Pre-Admission Diabetes Regimen
Lab Results
Hemoglobin A1c 10.4 % (4.0-5.6) H 09/18/25 06:47
Insulin Pump Settings
IP Diabetes Regimen
09/19/25 09/19/25 09/19/25
08:12 12:18 16:58
Glucose
POC Glucose 211 H 268 H 496 H*
09/19/25 09/19/25 09/19/25
18:10 18:18 20:17
Glucose Cancelled 451 H*
POC Glucose 502 H*
09/19/25 09/19/25 09/20/25
20:49 23:53 03:29
Glucose 476 H*
POC Glucose 329 H 200 H
Meal type: Lunch
Meal type: Breakfast
Amount consumed: 100%
Amount consumed: 100%
Patient Education
[2025-09-20] MEDS: LIDOCAINE 4% PATCH 1 PATCH TOPICAL (08:03)
[2025-09-20] MEDS: BETAPACE 80 MG PO ×2 (08:04→20:30)
[2025-09-20] MEDS: ELIQUIS 5 MG PO ×2 (08:04→20:30)
[2025-09-20] MEDS: CRESTOR 10 MG PO (08:04)
[2025-09-20] MEDS: MUCINEX 1200 MG PO ×2 (08:04→20:30)
[2025-09-20] MEDS: VIBRAMYCIN 100 MG PO ×2 (08:04→20:30)
[2025-09-20] MEDS: LASIX 20 MG IV (08:05)
[2025-09-20] MEDS: SENOKOT 8.6 MG PO ×2 (08:05→20:30)
[2025-09-20] MEDS: DELTASONE 40 MG PO (08:05)
[2025-09-20] MEDS: COLACE 100 MG PO ×2 (08:06→20:30)
[2025-09-20 08:25] LABS: Glucose - Point of Care 135 mg/dl (70-99)
[2025-09-20] MEDS: LANTUS 0.35 UNITS SC (08:25)
[2025-09-20] MEDS: NOVOLOG FLEXPEN SC (08:25)
[2025-09-20] MEDS: NOVOLOG FLEXPEN-HIGH RESISTANCE 1 UNITS SC (08:33)
[2025-09-20] MEDS: NOVOLOG FLEXPEN 15 UNITS SC ×2 (08:37→13:47)
--- NOTE | 2025-09-20 09:35 | W.PN.PUL3 ---
Today's Communication / Plan
-
Surgical options are noted, but carries with this high risk, patient understands
Recommendation to follow up with [facility] surgeon for complex/high risk case
We discussed medical optimization which can be done as OP, she was in agreement
Can complete 5 days of abx and evaluate for d/c planning if able
She is transitioned to oral steroids, would continue 5mg and azithro MWF as outpatient
We will arrange short term FU
Assessment
-
Patient is a very pleasant 65-year-old female who presented to the hospital with cough and shortness of breath. Patient has a complex past medical history including diverticular disease s/p perforation requiring colostomy complicated by parastomal
hernia. Patient also has morbid obesity, home oxygen dependent COPD also on Trelegy, who developed cough, shortness of breath and left flank discomfort. Patient reports that she had exposure to other people with similar symptoms and started
producing green phlegm with increased coughing, worsening over the last week despite Trelegy and as needed albuterol. The symptoms brought her to the emergency room. A CT scan was performed which was suggestive of multifocal pneumonia as well as
left lower lobe partial atelectasis and mediastinal and hilar lymphadenopathy. She was noted to have COPD exacerbation and was started on bronchodilators and steroids. Antibiotics were also initiated for pneumonia. Pulmonary consultation was
requested for further input.
Acute on chronic hypoxic respiratory failure
Multifocal pneumonia
Left lower lobe atelectasis/collapse
Mediastinal and Hilar Lymphadenopathy
Large abdominal hernia
Additional Past Medical History:
COPD, home oxygen dependent
Chronic Hypoxemic Respiratory Failure
Complicated Diverticulitis
Paroxysmal Atrial Fibrillation, on sotalol and Eliquis
Hypertension
DM-II
Anxiety / Depression
Morbid Obesity
Large Ventral Hernia
Former Smoker (Quit smoking 2 years ago. > 40 pack years total use.)
Partial Colectomy / Colostomy Formation
Bilateral MARIFER
Nodular left lobe of thyroid
Chronic pain syndrome with chronic opioid use
Perforated diverticular disease, s/p colostomy in 2022 with parastomal hernia
Plan
Patient at baseline on 2 L supplemental oxygen. Suspect multifactorial with morbid obesity, chronic left lower lobe atelectasis and underlying COPD with pneumonia
Continue supplemental O2, wean as tolerated
Bilateral pedal edema on exam, appears volume overloaded, initiate Lasix 20 mg IV daily
PCT slightly elevated 1.07
- Patchy opacities noted in right middle lobe as well as superior segment of left lower lobe, concerning for pneumonia
- Influenza A, B, COVID-19 screen negative. WBC count has been improving, patient is afebrile
- Continue doxycycline and ceftriaxone as ordered--can likely complete 5 days
Atelectasis
- Start airway clearance measures with hypertonic saline and albuterol scheduled
- Chest physical therapy, continue with antibiotics, add Mucinex
- Incentive spirometry
- CT abdomen pelvis from 07/2025 includes limited lung review, shows persistent left lower lobe atelectasis.
She has been impacted with her hernia, which may be limiting her breathing
Appreciate gen surg eval- consideration for evaluation at [facility] given case complexity
Mediastinal and Hilar Lymphadenopathy
- Suspect reactive in the setting of pneumonia. 4R is particularly enlarged
- However malignancy cannot be ruled out particularly with history of smoking.
- Needs outpatient follow-up CT chest in 8 to 12 weeks, if persistent will need bronchoscopy and EBUS with TBNA of lymph nodes
- Outpatient follow-up with [facility] pulmonary clinic, information added to discharge section
COPD with Acute exacerbation
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 At baseline she is on Trelegy 200 once daily, supplemental oxygen.
- Continue DuoNeb scheduled along with prednisone and antibiotics
We will obtain records (Dr Alas, [place]) for OP FU
She notes that she has had decline in function and multiple recurrent flares in the past year, almost monthly, not resolved
I am concerned could be related to hernia impacting her ability to manage COPD
Morbid obesity
- High likelihood of underlying sleep disordered breathing
- Patient needs further evaluation with an outpatient sleep study
- Continue supplemental oxygen for now
- Check VBG in a.m -- --she is limited with BIPAP given her abdominal exam, this would worsen distention
Would do well with weight loss treatment as OP
Patient will need outpatient follow-up with [facility] pulmonary clinic, information added to discharge section.
Data:
CT Chest 08/2025: No evidence of central pulmonary embolism. Partial left lower lobe atelectasis/collapse. Patchy opacities in the superior segment of left lower lobe and right middle lobe suspicious for pneumonia. Hilar and especially mediastinal
lymphadenopathy. Cannot exclude malignancy. Additional evaluation recommended. Nodular left lobe of thyroid.
CT AP 08/21/25- Large left-sided abdominal ventral hernias again seen largest in the abdominal pannus containing nondilated bowel with fluid and surrounding inflammation, no findings to suggest intestinal obstruction. Diffuse fatty liver.
Total time spent on this consultation/encounter __58__ minutes which includes review of history, physical exam, medications, laboratory data, personal review of imaging, extensive review of outpatient records, discussion with care team and
respiratory therapy.
Subjective Data
-
Date of Service:
Date of Service: September 20, 2025
Chief Complaint: Pulmonary Follow Up
Subjective:
No new complaints, remains the same
Tearful but understands surgical options
Objective Data
Data Reviewed
Vital Signs / I&O / Oxygen:
Vital Signs
Temp Pulse Resp BP Pulse Ox
97.6 F 63 18 115/66 97
09/20/25 07:11 09/20/25 07:33 09/20/25 07:33 09/20/25 07:11 09/20/25 07:33
Intake and Output
09/19/25 09/20/25 09/21/25
06:59 06:59 06:59
Intake Total 1200 / 1200 600 / 600
Balance 1200 / 1200 600 / 600
SaO2 97
Nasal Cannula flow liters per 2
minute
Physical Exam
General: Comfortable and Other (NAD, obese)
HEENT: Normocephalic, Anicteric and Moist Mucous Membranes
Cardiovascular: S1-S2 and Regular Rhythm
Respiratory: Clear and Non-Labored Respirations
GI: Distended and Other (palpable hernia, large; ostomy present)
Neurology: Awake, Alert, Oriented and No Motor Deficits
Skin: Warm and Good Color
[2025-09-20 10:28] LABS: Blood Urea Nitrogen 26 mg/dl (7-17); Calcium 9.5 mg/dl (8.4-10.2); Carbon Dioxide 32 mmol/L (22-30); Chloride 99 mmol/L (98-107); Estimated Creatinine Clearance 102 ml/min; Glucose 144 mg/dl (70-99); Hematocrit 41.3 % (37.0-47.0); Hemoglobin 13.0 g/dL (12.0-16.0); Mean Corp Hgb Conc. 31.5 g/dL (33.0-37.0); Mean Corpuscular Volume 94.5 fL (81.0-99.0); Platelet Count 209 10^3/uL (130-400); Potassium 3.6 mmol/L (3.5-5.1); Red Cell Dist. Width 12.7 % (11.5-14.5); Sodium 139 mmol/L (135-145); eGFR > 60.00
[2025-09-20 11:21] VITALS: BP 104/68
[2025-09-20 12:20] LABS: Glucose - Point of Care 161 mg/dl (70-99)
--- NOTE | 2025-09-20 13:07 | CM ---
Met with pt and discussed order for PT and OT evaluations. Pt is declining these evaluations and states that she received PT 5 day/week in LTC. LM with with liaison, Helen, at [facility] to confirm and see if scripts need to be sent at
discharge. Pt continues with IV abx and IV Lasix.
Plan: DC to [facility] SNF vs LTC
[2025-09-20] MEDS: ZOFRAN 4 MG PO (13:29)
[2025-09-20] MEDS: NOVOLOG FLEXPEN-HIGH RESISTANCE 2 UNITS SC (13:46)
--- NOTE | 2025-09-20 14:06 | W.PN.HOSP.TC ---
Today's Communication/Plan
-
Assessment / Plan
Assessment / Plan
65y F with PMH significant for colon resection / colostomy, DM-II and COPD who presents to ED complaining of cough x 1 week and new L flank pain.
Gen: NAD, AAOx3.
Eyes: EOMI, PERRLA, no scleral icterus.
Neck: supple.
CV: RRR, +S1/S2, no m/r/g.
Resp: Diminished breath sounds throughout
Abd: +BS, soft, NT, ND
Skin: No rashes.
Neuro: CN 2-12 intact, non-focal.
Psych: Normal mood and affect.
CTA chest: No PE. Partial left lower lobe atelectasis/collapse. Patchy opacities in the superior segment of left lower lobe and right middle lobe suspicious for pneumonia. Hilar and especially mediastinal lymphadenopathy. Cannot exclude malignancy.
Additional evaluation recommended. Nodular left lobe of thyroid.
Acute on Chronic Hypoxemic Respiratory Failure:
-due to acute B/L PNA (procal POS) and acute COPD Exac
-on 2L NC O2 at baseline, was on 4L NC O2, now weaned to 3L NC O2
-afebrile, minimal leukocytosis has resolved
-cont Rocephin/Doxy
-cont Prednisone 40mg daily acutely and taper back to usual dose as able
-Partially discussed case with pulmonary today. Can assist by could be related to parastomal hernia causing increased intra-abdominal pressure that
-currently has Acapella, add IS
DM2:
-severely uncontrolled
-Long and short acting insulin
-change SSI to hi-res
-a1c 10.4
Parastomal hernia
-Pulm concerned that it may need to be repaired as this could be causing increase in intraabdominal pressure. Thereby, pushing up against the diaphragm leading to SOB
-Surgery consulted
-Zofran po prn
Other problems:
PAF: cont sotalol/Eliquis
Chronic Pain Syndrome with Chronic Opioid Use with Dependence: cont oxycodone/IV morphine PRN. Add lidoderm patch to L flank.
Diverticular Disease, Parastomal Hernia: cont routine ostomy care
Morbid Obesity due to excess calories: Affects all aspects of care. Encourage healthy diet and increased activity with goal of weight loss.
Anticipated Discharge: 24 - 48 hours
Subjective/Interval History
-
Date of Service: September 20, 2025
Seen and examined. No new complaints. No acute overnight events.
Objective Data
-
Labs:
Laboratory Results
09/20/25
09:41
WBC 8.0
Hgb 13.0 D
Hct 41.3
Plt Count 209
Sodium 139 D
Potassium 3.6 D
Chloride 99
Carbon Dioxide 32 H
BUN 26 H
Creatinine 0.7
Glucose 144 H
Calcium 9.5
Vital Signs:
Vital Signs
Temp Pulse Resp BP Pulse Ox
97.5 F 67 16 104/68 97
09/20/25 11:21 09/20/25 11:29 09/20/25 11:29 09/20/25 11:21 09/20/25 11:29
I&O
09/19/25 09/20/25 09/21/25
06:59 06:59 06:59
Intake Total 1200 / 1200 1160 / 1160
Output Total 1000 / 1000
Balance 1200 / 1200 160 / 160
--- NOTE | 2025-09-20 14:34 | PTOTSP ---
Reviewed chart and noted pt refusing PT eval here. Pt is [facility]iary care resident at [place]. PT will sign off.
[2025-09-20 15:32] VITALS: BP 117/63
--- NOTE | 2025-09-20 16:13 | CON.GS ---
Medical History
-
Chief Complaint: Abdominal hernia, nuasea and emesis
History of Present Illness:
Patient is a 65 yo F with a PMH of morbid obesity, HTN, HLD, A-fib (on Eliquis), COPD (on 2L home O2), IDDM, s/p bilateral MARIFER, h/o perforated diverticulitis s/p Sabillon's procedure in 2021 down in [place]. Ms. Cuevas states that she first
developed a parastomal hernia approximately 2 months after her Sabillon's procedure. She was evaluated by a surgeon at that time who did not wish to pursue surgical intervention. She has transferred her care to the area and is currently living at
[facility]. She notes increase in the size of her hernia with time. She reports 1 noted episode off a bowel obstruction with abdominal pain, nausea, and vomiting. She does have intermittent episodes of nausea and vomiting 1-2 times every
month. These episodes are self-limited and are not directly associated with worsening abdominal pain related to her hernia or decreased ostomy output. She recently had an episode this morning. She continues to have stool and flatus from her
ostomy. No fevers or chills. She has chronic issues with respiratory failure necessitating pulsed doses of steroids and intermittent admissions for management. She denies any issues with incontinence prior to her Sabillon's procedure.
Past Medical History
Past Medical History: Arrhythmias (A-fib), COPD (2L home O2), HTN, Hypercholesterolemia, IDDM and Other (Obesity)
Past Surgical History: Bowel Resection (Open Sabillon's procedure in 2021 down in [place]) and Orthopedic (Bilateral MARIFER)
Social History
Tobacco: Former Smoker (Quit 2 years ago)
Alcohol: None
Drug: None
Living: [facility]
Family History
Family History: Reviewed & Not Pertinent
Allergies / Home Medications
Allergy/AdvReac Type Severity Reaction Status Date / Time
atorvastatin (From Lipitor) Allergy Unknown Verified 09/17/25 01:11
roflumilast Allergy Unknown Verified 09/17/25 01:11
�Medication �Instructions �Recorded �Confirmed �Type
Chlorophyll 60 mg PO DAILY Supplement 07/16/25 09/17/25 History
acetaminophen 325 mg tablet 650 mg PO Q4H PRN mild pain 07/16/25 09/17/25 History
albuterol sulfate 90 mcg/actuation 1 inh inhalation R Q8HPRN PRN sob 07/16/25 09/17/25 History
aerosol inhaler
apixaban 5 mg tablet (Eliquis) 5 mg PO BID Blood Clot 07/16/25 09/17/25 History
Prevention/Tx
cholecalciferol (vitamin D3) 25 25 mcg PO DAILY Supplement 07/16/25 09/17/25 History
mcg (1,000 unit) tablet
cyanocobalamin (vitamin B-12) 1,000 mcg PO DAILY Supplement 07/16/25 09/17/25 History
1,000 mcg tablet
fluticasone fur. 200 mcg-umeclid 1 inh inhalation R DAILY 07/16/25 09/17/25 History
62.5 mcg-vilant 25 mcg Lung/Breathing Issues
inhalat.powder (Trelegy Ellipta)
fluticasone propionate 50 1 spray intranasal DAILY PRN 07/16/25 09/17/25 History
mcg/actuation nasal allergies
spray,suspension
magnesium hydroxide 400 mg/5 mL 30 ml PO DAILY PRN no BM in 3 days 07/16/25 09/17/25 History
oral suspension (Milk of Magnesia)
montelukast 10 mg tablet 10 mg PO HS Allergies 07/16/25 09/17/25 History
oxycodone 5 mg tablet 5 mg PO Q6HPRN PRN moderate pain 07/16/25 09/17/25 History
prednisone 5 mg tablet 5 mg PO DAILY ANTIINFLAMMATION 07/16/25 09/17/25 History
simethicone 180 mg capsule 180 mg PO DAILYPRN PRN gas 07/16/25 09/17/25 History
therapeutic multivitamin 1 tab PO DAILY Supplement 07/16/25 09/17/25 History
rosuvastatin 10 mg tablet 10 mg PO DAILY High Cholesterol 08/21/25 09/17/25 History
sotalol 80 mg tablet 80 mg PO BID Arrhythmia 08/21/25 09/17/25 History
Insulin Glargine Lantus As Directed mls/hr SC HS 08/25/25 09/17/25 Rx
[Lantus] 12 units
insulin aspart U-100 100 unit/mL 10 unit (0.1 mL) SC AC #0 mL 08/25/25 09/17/25 Rx
(3 mL) subcutaneous pen
Review of Systems
-
A 10 point review of systems was completed, and was negative except as per HPI.
Physical Exam
Vital Signs
Temp Pulse Resp BP Pulse Ox
97.5 F 78 18 104/68 94
09/20/25 11:21 09/20/25 15:32 09/20/25 15:32 09/20/25 11:21 09/20/25 15:32
09/19/25 09/20/25 09/21/25
06:59 06:59 06:59
Actual Weight 112.094 kg 112.094 kg
Body Mass Index (BMI) 39.9
Lab Results
09/20/25 09:41
09/20/25 09:41
WBC 8.0 10^3/uL (4.8-10.8) 09/20/25 09:41
Hgb 13.0 g/dL (12.0-16.0) D 09/20/25 09:41
Hct 41.3 % (37.0-47.0) 09/20/25 09:41
Plt Count 209 10^3/uL (130-400) 09/20/25 09:41
Abs Immat Gran (auto) 0.1 10^3/uL (0-0.05) H 09/17/25 02:06
Neutrophils % 66.3 % (42.2-75.2) 09/17/25 02:06
Physical Exam
General: Well Developed, Well Nourished and No Apparent Distress
HEENT: Normocephalic and Anicteric
Respiratory: Non Labored Respirations, Accessory Resp Muscle Use and Other (Supplemental oxygen)
GI: Soft, Non Tender, Non Distended, Incisions (Midline well-healed), Obese and Other (Nonperitoneal, large parastomal hernia, unable to completely reduce, soft and nontender, no overlying skin changes or skin breakdown)
Musculoskeletal: No Edema
Skin: Warm and Dry
Neuro: Nonfocal/Grossly Intact
Data Reviewed
-
CT Scan: Image Personally Visualized and interpreted and Report Reviewed by me
Labs: Labs Reviewed by me
Assessment / Plan
-
Patient is a 65 yo F p/w acute respiratory failure
Acute on chronic issues with respiratory failure likely multifactorial and related to underlying intrapulmonary disease related to COPD, mechanical factors related to morbid obesity, and possibly a component of her large parastomal hernia impacting
her ability to take deep breaths. Difficult to tell if she is having some element of aspiration pneumonia as given that she does not clearly have episodes of worsening pulmonary function around the time of her infrequent episodes of nausea and
vomiting. Difficult to tell and certainly possible that fixing her parastomal hernia will not improve her pulmonary function, and in fact may worsen her pulmonary mechanics with increased intra-abdominal pressure and pain certainly around the time
of surgery. Certainly no indication for a more urgent surgical intervention.
Lengthy discussion had with both the patient and her brother regarding the natural history and pathophysiology of abdominal wall hernias. We specifically reviewed her current clinical situation. She is approaching loss of domain, and certainly
would be at risk for this with a continued watchful waiting approach over the coming years. She is at significantly increased risk for operative complications as it relates to wound and mesh infection, as well as hernia recurrence. Performing a
parastomal hernia repair alone has a likely 100% chance of recurrence. Her hernia would best be addressed in the setting of colostomy reversal. Even with colostomy reversal she has a increased risk for infections and complications. Using the
[employer] wen she has a 83% chance of a complication. This would likely need to be performed in an open fashion with a concomitant component separation. We also reviewed the risks of postoperative respiratory failure necessitating prolonged
intubation. We discussed the importance of weight loss and reducing her risk factors and ultimate success. We discussed the potential benefit of GLP-1 inhibitors for her case. Given the complexity of her case and increased risk for complications,
recommend any attempt at correction of her abdominal wall defect at a tertiary care facility.
For now recommend management of her underlying pulmonary issues. Pulmonary consult noted. Recommend outpatient follow-up down at [facility] for consideration of ostomy reversal and hernia repair. All questions answered.
-- No plans or indication for surgical repair at this time
-- Recommend outpatient follow-up down at [facility] for consideration of ostomy reversal and hernia repair
-- Please call with questions or concerns
[2025-09-20 17:00] LABS: Glucose - Point of Care 325 mg/dl (70-99)
[2025-09-20] MEDS: NOVOLOG FLEXPEN 20 UNITS SC (18:36)
[2025-09-20] MEDS: NOVOLOG FLEXPEN-HIGH RESISTANCE 10 UNITS SC (18:37)
[2025-09-20 20:06] VITALS: BP 117/64
[2025-09-20] MEDS: SINGULAIR 10 MG PO (20:30)
[2025-09-20] MEDS: REMOVE LIDOCAINE PATCH 1 PATCH REMOVE (20:31)
[2025-09-20 21:16] LABS: Glucose - Point of Care 352 mg/dl (70-99)
[2025-09-20] MEDS: NOVOLOG FLEXPEN 12 UNITS SC (21:32)
[2025-09-20] MEDS: LANTUS 0.2 UNITS SC (21:32)
[2025-09-20 23:07] VITALS: BP 114/72
--- NOTE | 2025-09-21 02:23 | DOWNTIME ---
There was a [employer] Downtime on 09/21/2025 from 0100 to 09/21/2025 at 0215. Downtime documentation of patient's care, including medication administrations, has been reconciled in the electronic record per guidelines. Refer to the
patient's paper chart under the miscellaneous tab to see printed paper medication records and downtime forms.
[2025-09-21] MEDS: ROCEPHIN 1000 MG IV (03:10)
[2025-09-21] MEDS: STERILE WATER FOR INJECTION 10 ML IV (03:10)
[2025-09-21] MEDS: MORPHINE SULFATE 2 MG IV ×2 (03:12→09:53)
[2025-09-21 03:28] VITALS: BP 129/78
[2025-09-21 07:36] VITALS: BP 137/80
[2025-09-21] MEDS: SODIUM CHLORIDE 3% FOR INHALATION 1 VIAL INH ×2 (07:36→11:32)
[2025-09-21] MEDS: DUONEB 3 ML INH ×2 (07:36→11:32)
[2025-09-21 08:08] LABS: Hematocrit 42.1 % (37.0-47.0); Hemoglobin 13.1 g/dL (12.0-16.0); Mean Corp Hgb Conc. 31.1 g/dL (33.0-37.0); Mean Corpuscular Volume 95.2 fL (81.0-99.0); Platelet Count 204 10^3/uL (130-400); Red Cell Dist. Width 12.9 % (11.5-14.5)
[2025-09-21 08:28] LABS: Glucose - Point of Care 134 mg/dl (70-99)
[2025-09-21 08:36] VITALS: BMI 39.5
[2025-09-21 09:08] LABS: Blood Urea Nitrogen 24 mg/dl (7-17); Calcium 9.5 mg/dl (8.4-10.2); Carbon Dioxide 29 mmol/L (22-30); Chloride 100 mmol/L (98-107); Estimated Creatinine Clearance 101 ml/min; Glucose 140 mg/dl (70-99); Potassium 4.0 mmol/L (3.5-5.1); Sodium 139 mmol/L (135-145); eGFR > 60.00
--- NOTE | 2025-09-21 09:10 | PN.DE.MGMTRT ---
Insulin Management
- -
09/21/2025: Diabetes Management Consult Follow up
65 year old female who presented to the hospital from [facility] 09/17 for further evaluation and treatment of cough, shortness of breath and left flank discomfort.
Patient was last admitted here 08/21 - 08/25 for treatment of parastomal hernia and associated cellulitis.
PMH: COPD on home oxygen and Trelegy, diverticular disease s/p perforation requiring colostomy complicated by parastomal hernia, obesity and T2DM
She was noted to have Acute on Chronic Hypoxemic Respiratory Failure due to COPD exacerbation. CT Chest was suggestive of multifocal pneumonia as well as left lower lobe partial atelectasis and mediastinal and hilar lymphadenopathy. Patient was
started on bronchodilators and steroids, now contributing to hyperglycemia. Prior to admission was taking Lantus 12 units @HS and lispro 10 units AC. Uses CGM- Crow. A1C 10.4%, Cr 0.7, eGFR >60
Patient is awake, alert, oriented, resting in bed, offers co complaints, able to discuss diabetes care plan. States she really doesn't know what insulin she gets, the nurses at [facility] test her sugar and give her insulin. Described to patient her
A1C indicates poor control so doses of insulin would be adjusted while she is here and should continue at discharge.
09/20 Continues on Prednisone 40 mg daily. Fasting glucose 135, novolog 15 units given with 1 unit corrective, lantus increased from 30 to 35 in AM and hs lantus to remain 20 units (patient did receive 15 units of novolog at HS for glucose 502 so
may require additional lantus but will observe at 20 units). Pre lunch glucose 161, will continue NovoLog 15 units AC with and reduce high corrective to moderate corrective insulin.
09/21 Fasting glucose today 134. Will make no change to HS lantus 20 units. Pre dinner glucose yesterday up to 325, HS glucose 352. Will continue 15 units novolog at breakfast and increase lunch and dinner dose to 20 units with high corrective
insulin. Will also increase AM lantus to 38 units.
Discussed with Nurse. Cont to monitor.
Diabetes History
- -
Type of Diabetes: 2 requiring insulin
Pre-Admission Diabetes Regimen
09/20/25 09/21/25
09:41 07:29
Creatinine 0.7 0.7
Lab Results
Hemoglobin A1c 10.4 % (4.0-5.6) H 09/18/25 06:47
Insulin Pump Settings
IP Diabetes Regimen
09/20/25 09/20/25 09/20/25
09:41 12:18 16:58
Glucose 144 H
POC Glucose 161 H 325 H
09/20/25 09/21/25 09/21/25
21:15 07:29 08:26
Glucose 140 H
POC Glucose 352 H 134 H
Meal type: Breakfast
Amount consumed: 45%
Patient Education
[2025-09-21] MEDS: NOVOLOG FLEXPEN-HIGH RESISTANCE 1 UNITS SC (09:22)
[2025-09-21] MEDS: VIBRAMYCIN 100 MG PO (09:23)
[2025-09-21] MEDS: MUCINEX 1200 MG PO (09:23)
[2025-09-21] MEDS: ELIQUIS 5 MG PO (09:23)
[2025-09-21] MEDS: LIDOCAINE 4% PATCH 1 PATCH TOPICAL (09:23)
[2025-09-21] MEDS: SENOKOT 8.6 MG PO (09:23)
[2025-09-21] MEDS: CRESTOR 10 MG PO (09:23)
[2025-09-21] MEDS: COLACE 100 MG PO (09:23)
[2025-09-21] MEDS: BETAPACE 80 MG PO (09:23)
[2025-09-21] MEDS: DELTASONE 40 MG PO (09:24)
[2025-09-21] MEDS: LASIX 20 MG IV (09:24)
[2025-09-21] MEDS: LANTUS SC (09:31)
[2025-09-21] MEDS: LANTUS 0.38 UNITS SC (09:53)
[2025-09-21] MEDS: NOVOLOG FLEXPEN 15 UNITS SC (09:55)
[2025-09-21 11:06] VITALS: BP 118/77
--- NOTE | 2025-09-21 11:39 | W.PN.PUL3 ---
Today's Communication / Plan
-
Remains stable, she understands the plan moving forward
We will arrange short term FU [facility] plan to continue OP Management and evals
Discharge planning per team
Assessment
-
Patient is a very pleasant 65-year-old female who presented to the hospital with cough and shortness of breath. Patient has a complex past medical history including diverticular disease s/p perforation requiring colostomy complicated by parastomal
hernia. Patient also has morbid obesity, home oxygen dependent COPD also on Trelegy, who developed cough, shortness of breath and left flank discomfort. Patient reports that she had exposure to other people with similar symptoms and started
producing green phlegm with increased coughing, worsening over the last week despite Trelegy and as needed albuterol. The symptoms brought her to the emergency room. A CT scan was performed which was suggestive of multifocal pneumonia as well as
left lower lobe partial atelectasis and mediastinal and hilar lymphadenopathy. She was noted to have COPD exacerbation and was started on bronchodilators and steroids. Antibiotics were also initiated for pneumonia. Pulmonary consultation was
requested for further input.
Acute on chronic hypoxic respiratory failure
Multifocal pneumonia
Left lower lobe atelectasis/collapse
Mediastinal and Hilar Lymphadenopathy
Large abdominal hernia
Additional Past Medical History:
COPD, home oxygen dependent
Chronic Hypoxemic Respiratory Failure
Complicated Diverticulitis
Paroxysmal Atrial Fibrillation, on sotalol and Eliquis
Hypertension
DM-II
Anxiety / Depression
Morbid Obesity
Large Ventral Hernia
Former Smoker (Quit smoking 2 years ago. > 40 pack years total use.)
Partial Colectomy / Colostomy Formation
Bilateral MARIFER
Nodular left lobe of thyroid
Chronic pain syndrome with chronic opioid use
Perforated diverticular disease, s/p colostomy in 2022 with parastomal hernia
Plan
Patient at baseline on 2 L supplemental oxygen. Suspect multifactorial with morbid obesity, chronic left lower lobe atelectasis and underlying COPD with pneumonia
Continue supplemental O2, wean as tolerated
Bilateral pedal edema on exam, appears volume overloaded, initiate Lasix 20 mg IV daily
PCT slightly elevated 1.07
- Patchy opacities noted in right middle lobe as well as superior segment of left lower lobe, concerning for pneumonia
- Influenza A, B, COVID-19 screen negative. WBC count has been improving, patient is afebrile
- Continue doxycycline and ceftriaxone as ordered--can likely complete 5 days
Atelectasis
- Start airway clearance measures with hypertonic saline and albuterol scheduled
- Chest physical therapy, continue with antibiotics, add Mucinex
- Incentive spirometry
- CT abdomen pelvis from 07/2025 includes limited lung review, shows persistent left lower lobe atelectasis.
She has been impacted with her hernia, which may be limiting her breathing
Appreciate gen surg eval- consideration for evaluation at [facility] given case complexity
Mediastinal and Hilar Lymphadenopathy
- Suspect reactive in the setting of pneumonia. 4R is particularly enlarged
- However malignancy cannot be ruled out particularly with history of smoking.
- Needs outpatient follow-up CT chest in 8 to 12 weeks, if persistent will need bronchoscopy and EBUS with TBNA of lymph nodes
- Outpatient follow-up with [facility] pulmonary clinic, information added to discharge section
COPD with Acute exacerbation
- Patient reports that she followed up with a contract associate manager in [place] prior to moved and has known history of COPD. At baseline she is on Trelegy 200 once daily, supplemental oxygen.
- Continue DuoNeb scheduled along with prednisone and antibiotics
We will obtain records (Dr Alas, [place]) for OP FU
She notes that she has had decline in function and multiple recurrent flares in the past year, almost monthly, not resolved
I am concerned could be related to hernia impacting her ability to manage COPD
Morbid obesity
- High likelihood of underlying sleep disordered breathing
- Patient needs further evaluation with an outpatient sleep study
- Continue supplemental oxygen for now
- Check VBG in a.m -- 7--she is limited with BIPAP given her abdominal exam, this would worsen distention
Would do well with weight loss treatment as OP
Patient will need outpatient follow-up with [facility] pulmonary clinic, information added to discharge section.
Data:
CT Chest 08/2025: No evidence of central pulmonary embolism. Partial left lower lobe atelectasis/collapse. Patchy opacities in the superior segment of left lower lobe and right middle lobe suspicious for pneumonia. Hilar and especially mediastinal
lymphadenopathy. Cannot exclude malignancy. Additional evaluation recommended. Nodular left lobe of thyroid.
CT AP 08/21/25- Large left-sided abdominal ventral hernias again seen largest in the abdominal pannus containing nondilated bowel with fluid and surrounding inflammation, no findings to suggest intestinal obstruction. Diffuse fatty liver.
Total time spent on this consultation/encounter __35__ minutes which includes review of history, physical exam, medications, laboratory data, personal review of imaging, extensive review of outpatient records, discussion with care team and
respiratory therapy.
Subjective Data
-
Date of Service:
Date of Service: September 21, 2025
Chief Complaint: Pulmonary Follow Up
Subjective:
No new complaints, remains stable
Objective Data
Data Reviewed
Vital Signs / I&O / Oxygen:
Vital Signs
Temp Pulse Resp BP Pulse Ox
97.7 F 82 16 118/77 96
09/21/25 11:06 09/21/25 11:33 09/21/25 11:33 09/21/25 11:06 09/21/25 11:33
Intake and Output
09/20/25 09/21/25 09/22/25
06:59 06:59 06:59
Intake Total 1160 / 1160 1380 / 1380
Output Total 1000 / 1000
Balance 160 / 160 1380 / 1380
SaO2 96
Nasal Cannula flow liters per 2
minute
Physical Exam
General: Comfortable and Other (NAD, obese)
HEENT: Normocephalic, Anicteric and Moist Mucous Membranes
Cardiovascular: S1-S2 and Regular Rhythm
Respiratory: Clear and Non-Labored Respirations
GI: Distended and Other (palpable hernia, large; ostomy present)
Neurology: Awake, Alert, Oriented and No Motor Deficits
Skin: Warm and Good Color
Labs/Micro/Reports
Lab Data
09/21/25 07:29
09/21/25 07:29
--- NOTE | 2025-09-21 11:41 | CM ---
Pt D/c today back to [facility] with home O2 via ambulance at 2PM, IMM given and placed on chart
[facility]
report: [phone]
fax: [phone]
[2025-09-21 12:15] LABS: Glucose - Point of Care 271 mg/dl (70-99)
--- NOTE | 2025-09-21 12:19 | W.DCSUMMARY ---
Addendum entered and electronically signed by Esvin Guerra MD 09/21/25 12:39:
Diabetes consultants chnaged insulin on DC
Insulin glargine 38 units daily at 8 AM
Insulin glargine 20 units at bedtime at 10 PM
As part 20 units at 12 and 5 PM
Stop 10 units AC as per and 12 units Lantus
Original Note:
Discharge Summary
Discharge Data
Date of Admission: 09/17/25
Date of Discharge: 09/21/25
-
Pending Results: No
Hospital Course
65y F with PMH significant for diverticular disease with ostomy / parastomal hernia, obesity and COPD
Presented with cough shortness of breath with a known history of home O2 dependent COPD. Was admitted for acute on chronic hypoxemic respiratory failure likely related to multifocal pneumonia. CTA chest no PE. Was evaluated by pulmonary and
surgery for known history of parastomal hernia ostomy along with O2 dependent COPD. Started on IV steroids along with IV antibiotics and receiving IV Lasix. Per pulmonary recommend antiobiotics x5day and steroids. Pulmonary was concerned that the
hernia was effecting copd management. Therefore, surgery consulted. Did not believe immediate surgery was needed and recommened outpaitent follow up with surgery at [facility] for colostomy reversal and hernia repair.
Additionally, hospitalization was complicated by severe hyperglycemia. Fortunately without evidence of diabetic ketoacidosis. Diabetes consultants were consulted and managed the hyperglycemia with insulin adjustment.
Will need continue outpatient follow up with PCP, pulmonary, surgery and endocrinology as well as ophthalmology, podiatry and nephrology as A1c >10.4
CTChest
IMPRESSION:
No evidence of central pulmonary embolism.
Partial left lower lobe atelectasis/collapse.
Patchy opacities in the superior segment of left lower lobe and right middle lobe suspicious for pneumonia.
Hilar and especially mediastinal lymphadenopathy. Cannot exclude malignancy. Additional evaluation recommended.
Nodular left lobe of thyroid.
Study preliminarily interpreted by Dr. Velásquez from [facility], report faxed to the emergency department at [phone] hours on September 17, 2025.
CXR
IMPRESSION:
Left basilar opacification which could represent atelectasis and/or pneumonia.
Seen and examined on the day of discharge which is 09/21. No new complaints. No acute overnight events.
Gen: NAD, AAOx3.
Eyes: EOMI, PERRLA, no scleral icterus.
CV: RRR, +S1/S2, no m/r/g.
Resp: Diminished breath sounds throughout
Abd: +BS, soft, NT, ND
- Colostomy intact CDI. Parastomal hernia noted
Psych: Normal mood and affect.
More than 30 minutes spent in discharge including
Final examination of the patient
Summarizing hospital stay
Instructions for continuing care to all relevant caregivers
Preparation of discharge records, prescriptions, and referral forms
Total time spent (in minutes): 33mins
Discharge Plan
-
Patient Disposition: Fdc/SNF
Discharge Diagnosis/Procedures: COPD
Pneumonia
Acute on chronic hypoxic respiratory failure
Condition: Fair
Diet: As tolerated
Activity: As tolerated
Activity Restrictions/Additional Instructions:
Presented with cough shortness of breath with a known history of home O2 dependent COPD. Was admitted for acute on chronic hypoxemic respiratory failure likely related to multifocal pneumonia. CTA chest no PE. Was evaluated by pulmonary and
surgery for known history of parastomal hernia ostomy along with O2 dependent COPD. Started on IV steroids along with IV antibiotics and receiving IV Lasix. Per pulmonary recommend antiobiotics x5day and steroids. Pulmonary was concerned that the
hernia was effecting copd management. Therefore, surgery consulted. Did not believe immediate surgery was needed and recommened outpaitent follow up with surgery at [facility] for colostomy reversal and hernia repair.
Additionally, hospitalization was complicated by severe hyperglycemia. Fortunately without evidence of diabetic ketoacidosis. Diabetes consultants were consulted and managed the hyperglycemia with insulin adjustment.
Will need continue outpatient follow up with PCP, pulmonary, surgery and endocrinology as well as ophthalmology, podiatry and nephrology as A1c >10.4
CTChest
IMPRESSION:
No evidence of central pulmonary embolism.
Partial left lower lobe atelectasis/collapse.
Patchy opacities in the superior segment of left lower lobe and right middle lobe suspicious for pneumonia.
Hilar and especially mediastinal lymphadenopathy. Cannot exclude malignancy. Additional evaluation recommended.
Nodular left lobe of thyroid.
Study preliminarily interpreted by Dr. Velásquez from [facility], report faxed to the emergency department at [phone] hours on September 17, 2025.
CXR
IMPRESSION:
Left basilar opacification which could represent atelectasis and/or pneumonia.
Referrals:
Inge Shetty DO [Active, Pulmonary Medicine] - in one to two weeks
Referral Note: PFT
Skyler Saez MD [Family Provider]
Prescriptions:
New
doxycycline hyclate 100 mg Capsule
100 mg PO Q12 Qty: 6 0RF
guaifenesin 600 mg Tablet Extended Release 12hr
1,200 mg PO Q12 Qty: 6 0RF
cefdinir 300 mg capsule
300 mg PO BID Qty: 6 0RF
Continued
acetaminophen 325 mg Tablet
650 mg PO Q4H PRN (Reason: mild pain)
simethicone 180 mg Capsule
180 mg PO DAILYPRN PRN (Reason: gas)
prednisone 5 mg tablet
5 mg PO DAILY
cyanocobalamin (vitamin B-12) 1,000 mcg Tablet
1,000 mcg PO DAILY
therapeutic multivitamin Tablet
1 tab PO DAILY
magnesium hydroxide [Milk of Magnesia] 400 mg/5 mL Suspension
30 ml PO DAILY PRN (Reason: no BM in 3 days)
Rx Instructions:
give at bedtime
montelukast 10 mg tablet
10 mg PO HS
albuterol sulfate 90 mcg/actuation HFA aerosol inhaler
1 inh INHALATION R Q8HPRN PRN (Reason: sob)
fluticasone propionate 50 mcg/actuation [place],Suspension
1 spray intranasal DAILY PRN (Reason: allergies)
cholecalciferol (vitamin D3) 25 mcg (1,000 unit) Tablet
25 mcg PO DAILY
Eliquis 5 mg tablet
5 mg PO BID
Trelegy Ellipta 200-62.5-25 mcg blister with device
1 inh INHALATION R DAILY
Chlorophyll
60 mg PO DAILY
sotalol 80 mg Tablet
80 mg PO BID
rosuvastatin 10 mg Tablet
10 mg PO DAILY
Insulin Glargine Lantus [Lantus] 12 UNITS
Subcutaneous Insulin Syringe [Syringe-Insulin] 0 UNIT
As Directed mls/hr SC HS
Ordered By: Agus Soriano MD
Last Taken: Unknown
insulin aspart U-100 100 unit/mL (3 mL) Insulin Pen
10 unit SC AC Qty: 0 0RF
oxycodone 5 mg tablet
5 mg PO Q6HPRN PRN (Reason: moderate pain) Qty: 6 0RF
Discharge Orders:
Discharge Patient (As Directed); Ordered 09/21/25
Ordered By: Esvin Guerra
Discharge Date and Time
Print Language: ITALIAN
[2025-09-21] MEDS: ROXICODONE 5 MG PO (13:38)
[2025-09-21] MEDS: NOVOLOG FLEXPEN 20 UNITS SC (13:39)
[2025-09-21] MEDS: NOVOLOG FLEXPEN-HIGH RESISTANCE 7 UNITS SC (13:39)
== END 2025-09-21 14:24 | DRG 193 ==
LOC: 4 EAST ACU 06:10
PROVIDERS: Internal Medicine; ADMITTING PHYSICIAN Hospitalist; ATTENDING PHYSICIAN Hospitalist; CONSULT PHYSICIAN Internal Medicine; EMERGENCY PHYSICIAN Emergency Medicine; FAMILY PHYSICIAN Internal Medicine
DX: J18.9 Pneumonia, unspecified organism (principal); J96.21 Acute and chronic respiratory failure with hypoxia; J44.1 Chronic obstructive pulmonary disease with (acute) exacerbation; J44.0 Chronic obstructive pulmonary disease with (acute) lower respiratory infection; F11.20 Opioid dependence, uncomplicated; J98.11 Atelectasis; I48.0 Paroxysmal atrial fibrillation; I25.10 Atherosclerotic heart disease of native coronary artery without angina pectoris; I10 Essential (primary) hypertension; R59.0 Localized enlarged lymph nodes; F32.A Depression, unspecified; F41.9 Anxiety disorder, unspecified; E66.01 Morbid (severe) obesity due to excess calories; E11.65 Type 2 diabetes mellitus with hyperglycemia; E78.00 Pure hypercholesterolemia, unspecified; G89.4 Chronic pain syndrome; K43.5 Parastomal hernia without obstruction or gangrene; Z11.52 Encounter for screening for COVID-19; Z68.39 Body mass index [BMI] 39.0-39.9, adult; Z79.01 Long term (current) use of anticoagulants; Z79.4 Long term (current) use of insulin; Z79.899 Other long term (current) drug therapy; Z87.891 Personal history of nicotine dependence; Z99.81 Dependence on supplemental oxygen
CPT/HCPCS: 71046; 71275; 80048; 80053; 82805; 82947; 82962; 83036; 83880; 84145; 84484; 85025; 85027; 85610; 85730; 87502; 87811; 93005; 94640; 94667; 94668; 96374; 96375; 96376; 99285; Q9967

== ENCOUNTER 2025-10-04 14:52 | Emergency (ER) | payer MEDICARE, OTHER, SELFPAY ==
[2025-10-04 14:56] VITALS: BMI 41.9
[2025-10-04 15:00] VITALS: BP 129/80
--- NOTE | 2025-10-04 15:00 | ED.GENMED ---
History of Present Illness
General
Chief Complaint: Breathing Problem
Time Seen by Provider: 10/04/25 15:00
History of Present Illness
History of Present Illness:
FOCUSED PAST MEDICAL HISTORY
- Asthma/COPD, A-fib on Eliquis, CAD, diverticular disease with colostomy, obesity
REVIEW OF OLD RECORDS
- The patient was admitted with shortness of breath 2 weeks ago for about 5 days. She had a CT at that time that showed no PE and was treated for multifocal pneumonia. She was on IV steroids, IV antibiotics, and IV Lasix. She had severe
hyperglycemia but not in DKA. Insulin dosing was adjusted.
- CAT scan from 09/17/2025 showed no PE, partial left lower lobe atelectasis/collapse, patchy opacities in the left lower lobe and right middle lobe suspicious for pneumonia, the 'thoracic aorta is normal in caliber and homogenous in appearance'
Note:
CHIEF COMPLAINT(S)
Sharp chest pain exacerbated by breathing.
HISTORY OF PRESENT ILLNESS
The patient is a 65-year-old female with a recent history of pneumonia who presents with sharp chest pain occurring with inspiration. 'This feels like the time I had my pneumonia but it is not that bad this time'. The symptoms began yesterday and
the patient describes them as similar to her previous pneumonia episode but less severe. The patient had been hospitalized approximately two weeks ago for pneumonia, during which she received intravenous steroids and diuretics, noted a rise in her
blood sugar levels, and completed a course of antibiotics recently. She currently resides at a nursing care facility, [facility], where she receives assisted living services. The patient typically uses 2 liters of supplemental oxygen, and her
current oxygen saturation is stable at 95-96%. Her brother indicated that there was some concern of 'uncoiled aorta' on x-ray.
PAST MEDICAL AND SURGICAL HISTORY
The patient previously received treatment for pneumonia.
EXTERNAL RECORDS REVIEWED
A chest x-ray was performed on October 03, 2023, indicating 'no acute disease.' An uncoiled aorta was noted, and this result raised some concerns. A previous CT scan conducted two weeks ago provided more detailed imaging, and the results will be
reviewed for further analysis. The patients recent white blood cell count on September 22, 2023, was 8.5.
CHRONIC MEDICAL CONDITIONS SIGNIFICANTLY AFFECTING CARE
The patient is on Eloquist, Prednisone, Insulin, and Oxycodone.
SOCIAL DETERMINANTS AFFECTING HEALTH
The patient resides in a nursing care facility, where she receives some assistance with daily living activities, including help with showering.
MEDICATIONS
Eloquist, Prednisone, Insulin, Oxycodone, Opioids. Currently on Augmentin and Azithromycin which started today and are to conclude by October 14.
REVIEW OF SYSTEMS
- Respiratory: Sharp pain with inspiration, history of pneumonia.
- Cardiovascular: Recent concern regarding an 'uncoiled aorta' on imaging.
- General: Reports no new respiratory symptoms except pain that is less severe than when pneumonia was diagnosed.
PHYSICAL EXAM
General: Alert, no acute distress.
Skin: Warm, dry.
Head: Normocephalic, atraumatic.
Neck: Supple, trachea midline.
Eye, Ears, Nose, Mouth, and Throat: Oral mucosa moist.
Cardiovascular: Normal peripheral perfusion, No edema.
Respiratory: Respirations are non-labored; noted wheezing.
Gastrointestinal: Abdomen nondistended.
Back: Some decreased active range of motion in the upper back related to pain
Musculoskeletal: Normal ROM, normal strength.
Neurological: Alert and oriented to person, place, time, and situation, No focal neurological deficit observed.
Psychiatric: Cooperative, appropriate mood & affect.
PLAN
Review previous CT scan from two weeks ago to correlate findings related to the 'uncoiled aorta.'
Consult with a radiologist to re-evaluate the chest x-ray for any potential concerns other than pneumonia.
Continue the current course of antibiotics (Augmentin and Azithromycin), with planned completion on October 14.
DIFFERENTIAL DIAGNOSIS
The Differential Diagnosis includes, in no particular order and is not limited to:
1. Residual Pneumonia
2. Pleural Effusion
3. Pulmonary Embolism
4. Aortic Dissection
5. Costochondritis
6. Viral Pleurisy
7. Pulmonary Hypertension
8. Congestive Heart Failure
9. Chronic Obstructive Pulmonary Disease (COPD)
10. Musculoskeletal Pain
RADIOLOGY
- Chest x-ray suggest pneumonia, however radiologist did also bring up the possibility of nodular mass in the left lower lobe
EKG
- Sinus 79, LAFB, T wave abnormality more notable in the inferior leads however QRSs in III and AvF are downgoing
LABS
- White count 13.0, hemoglobin 11.3, sodium 131, creatinine 0.6
UPDATE
- I discussed case with Dr. Ireland and he states he will contact his office to try to arrange closer follow-up.
SUMMARY OF ENCOUNTER
The patient, a 65-year-old female with recent pneumonia, presented to the emergency department with sharp chest pain exacerbated by breathing. Upon evaluation, cardiac blood work was performed, showing no signs of heart failure. Radiological
evaluation, including a chest x-ray, indicated signs suggestive of pneumonia. A review of a previous CT scan from July raised a suspicion of a potential mass on the left side of the lung, though it is not definite. The aorta was also reviewed and
confirmed to be normal. The decision was made to treat the suspected pneumonia with antibiotics Augmentin (amoxicillin-clavulanate) and azithromycin, which had been previously initiated. Referral to a supervisor tubing, Dr. Haney, was
recommended for further evaluation of the potential lung mass. The patients condition was stable, with no need for increased oxygen requirements and normal blood work.
PLAN
Continue the antibiotics Augmentin and azithromycin for suspected pneumonia. Arrange follow-up with supervisor tubing Dr. Haney to further evaluate the questionable mass seen in the previous CT scan. [facility]
contacts Dr. Haneys office for an appointment and assists with arranging transportation for the patient. Emphasize the non-definitive nature of the findings but the importance of follow-up for detailed assessment.
INDEPENDENT REVIEW OF LABS AND INTERPRETATION OF TESTS
My independent review of the chest x-ray indicates signs consistent with pneumonia. My independent review of the CT scan suggests a questionable mass on the left lung that warrants further investigation.
FOLLOW-UP INSTRUCTIONS
Please contact Dr. Haney as soon as possible to schedule a follow-up appointment for evaluation of the lung mass. [facility] should assist with this process and arrange transportation as needed. Adhere to current antibiotic
treatment as planned.
MEDICATION RECONCILIATION
The patient is currently on antibiotics, Augmentin (amoxicillin-clavulanate) and azithromycin, for the treatment of suspected pneumonia.
MEDICAL DECISION MAKING
1. Number and Complexity of Problems Addressed: Chronic conditions affecting care include past medical history of pneumonia. Differential diagnosis considered includes residual pneumonia, pleural effusion, pulmonary embolism, costochondritis, viral
pleurisy, and potential malignancy due to the questionable mass.
2. Data:
Category 1
My independent interpretation of the chest x-ray indicates signs of pneumonia.
My independent interpretation of CT scan review suggests a questionable mass on the left lung.
Category 3
Discussion with a radiologist concerning the chest x-ray and CT scan findings, specifically the suspicious mass in the lung.
3. Risk:
Prescription medication was prescribed, Augmentin (amoxicillin-clavulanate) and azithromycin.
Care significantly affected by Social Determinants of Health: The patient resides in a nursing care facility, which provides assistance with activities of daily living and facilitates medical follow-ups through provided transportation.
DIAGNOSIS
- Pneumonia, unspecified organism (ICD-10: J18.9)
- Pulmonary nodule, unspecified lung (ICD-10: R91.1)
-The patient is eager to go home/back to [facility]. Her sats are 96% to 97% on her usual 2 L/min. She has nonlabored breathing appears comfortable. Given the concern that radiology brought up about the possibly of a mass, I did notify
Charla to help expedite close outpatient follow-up and he said that he will send a message to his office.
-The patient is already started on Augmentin and azithromycin as outpatient starting today based on the notes from [facility]
Past History
Past History
ED Past Medical History: Arrthythmia (Atrial fibrillation), Asthma, CAD, Cancer (CLL), COPD (Chronically O2 dependent), HTN, Hypercholesterolemia, NIDDM, Hypothyroidism, Psychiatric, Other (Chronic low back pain-narcotic dependent. Chronic
ambulatory dysfunction) and Other (Diverticulitis with perforation requiring colostomy 2021)
ED Past Surgical History: Other (Colostomy)
Social History
Tobacco: Non-smoker
Alcohol: Former
Drug: None
Personal: Single
Living: [facility]
Employment: Disabled
Family History
Family History: Other (Noncontributory)
Phy Exam
Physical Exam
Physical Exam:
See HPI
Scores
Heart Failure Risk
Heart Failure Risk Score: Not Applicable
Course
Orders/Labs/Results
Orders:
Orders
10/04/25 14:54
EKG [Electrocardiogram (*1)] Urgent
Reason for Study: Shortness of Breath
EKG- Treatment ONCE
10/04/25 15:00
Complete Blood Count/With Diff Urgent
Comprehensive Metabolic Panel Urgent
10/04/25 15:03
CR Chest Portable - 1 View Urgent
Comment:
Reason For Exam: sob copd
Reason Study Needs to be Portable: Unable to Transport
10/04/25 15:05
NT-proBNP Urgent
Troponin I Urgent
10/04/25 15:08
Add On- LAB Urgent
Tests Added?: troponin
10/04/25 15:31
Ipratropium/Albuterol Sulfate [Duoneb] 3 ml INH R NOW STA
10/04/25 16:22
Amoxicillin 875 mg/Clav 125 mg [Augmentin 875 mg/125 mg] 1 tablet PO NOW STA
Azithromycin [Zithromax] 500 mg PO NOW STA
Abnormal Lab Results
10/04/25
15:00
WBC 13.0 H 10^3/uL
(4.8-10.8)
RBC 3.84 L 10^6/uL
(4.20-5.40)
Hgb 11.3 L g/dL
(12.0-16.0)
Hct 35.1 L %
(37.0-47.0)
MCHC 32.2 L g/dL
(33.0-37.0)
Absolute Neuts (auto) 10.0 H 10^3/uL
(1.4-6.5)
Absolute Monos (auto) 0.9 H 10^3/uL
(0.1-0.6)
Neutrophils % 76.6 H %
(42.2-75.2)
Lymphocytes % 15.3 L %
(20.5-51.1)
Sodium 131 L mmol/L
(135-145)
Chloride 97 L mmol/L
(98-107)
Carbon Dioxide 31 H mmol/L
(22-30)
Glucose 298 H mg/dl
(70-99)
10/04/25 15:00
10/04/25 15:00
Vital Signs
Initial and Last Documented VS:
Initial Vital Signs
Pulse Resp Pulse Ox
80 20 94
10/04/25 14:54 10/04/25 14:54 10/04/25 14:54
Last Documented Vital Signs
Temp Pulse Resp BP Pulse Ox
36.7 C 75 16 129/80 96
10/04/25 15:00 10/04/25 15:15 10/04/25 15:03 10/04/25 15:00 10/04/25 15:15
*Pulse Oximetry
SaO2: 94
Nasal Cannula flow liters per minute: 2
Patient hypoxic: yes (Patient's chronically hypoxic but is not hypoxic while on nasal cannula oxygen at 2 L/min)
*Critical Care Note
Total Time (30-74mins, 75-104mins- exclusive of procedures): Not Applicable
ED Attending Note
-
Portions of this chart may have been created with voice recognition software.� Occasional wrong word or��sound alike� substitutions may have occurred due to the inherent limitations of voice recognition software.
Discharge Plan
Departure
Patient Disposition: Home (Routine Discharge)
Date of Disposition: 10/04/25
Time of Disposition: 16:15
Patient with high blood pressure during this ER visit?: Yes
Discharge Problem:
Pneumonia
Instructions: Pneumonia in adults, BLOOD PRESSURE
Prescriptions:
No Action
acetaminophen 325 mg Tablet
650 mg PO Q4H PRN (Reason: mild pain)
simethicone 180 mg Capsule
180 mg PO DAILYPRN PRN (Reason: gas)
prednisone 5 mg tablet
5 mg PO DAILY
cyanocobalamin (vitamin B-12) 1,000 mcg Tablet
1,000 mcg PO DAILY
therapeutic multivitamin Tablet
1 tab PO DAILY
magnesium hydroxide [Milk of Magnesia] 400 mg/5 mL Suspension
30 ml PO DAILY PRN (Reason: no BM in 3 days)
Rx Instructions:
give at bedtime
montelukast 10 mg tablet
10 mg PO HS
albuterol sulfate 90 mcg/actuation HFA aerosol inhaler
1 inh INHALATION R Q8HPRN PRN (Reason: sob)
fluticasone propionate 50 mcg/actuation [place],Suspension
1 spray intranasal DAILY PRN (Reason: allergies)
cholecalciferol (vitamin D3) 25 mcg (1,000 unit) Tablet
25 mcg PO DAILY
Eliquis 5 mg tablet
5 mg PO BID
Trelegy Ellipta 200-62.5-25 mcg blister with device
1 inh INHALATION R DAILY
Chlorophyll
60 mg PO DAILY
sotalol 80 mg Tablet
80 mg PO BID
rosuvastatin 10 mg Tablet
10 mg PO DAILY
doxycycline hyclate 100 mg Capsule
100 mg PO Q12 Qty: 6 0RF
guaifenesin 600 mg Tablet Extended Release 12hr
1,200 mg PO Q12 Qty: 6 0RF
cefdinir 300 mg capsule
300 mg PO BID Qty: 6 0RF
oxycodone 5 mg tablet
5 mg PO Q6HPRN PRN (Reason: moderate pain) Qty: 6 0RF
insulin glargine [Lantus Solostar U-100 Insulin] 100 unit/mL (3 mL) Insulin Pen
38 unit SC DAILY@0800 Qty: 5 1RF
insulin glargine [Lantus Solostar U-100 Insulin] 100 unit/mL (3 mL) Insulin Pen
20 unit SC HS@2200 Qty: 5 1RF
insulin aspart U-100 [Novolog FlexPen U-100 Insulin] 100 unit/mL (3 mL) Insulin Pen
20 unit SC DAILY@1200,1700 Qty: 5 1RF
Rx Instructions:
Take 20 units with lunch and dinner
(DME) pen needle, diabetic [Amie Pen Needle] 32 gauge x 5/32' Needle
Qty: 200 1RF
Rx Instructions:
1 box of 200 needles
refer to insulin instructions 4 injections per day
Referrals:
Tommie Barraza MD [Active, Pulmonary Medicine]
Elias Whiting MD [Family Provider, Family Practice]
Activity Restrictions/Additional Instructions:
Your white blood cell count is high at 13 and your chest x-ray suggest pneumonia on the left side. The radiologist did however also comment on the possibility of a 'nodular mass in the region of the left lower lobe bronchus that appears to been
present since July 16, 2025 CT. The radiologist recommends that you follow-up with a supervisor tubing sooner. I message Dr. Barraza. Inga Garcia should assist with trying to get into see the supervisor tubing as an outpatient. He felt that
this could still be done as an outpatient and did not require hospitalization. Your cardiac blood work shows no sign of heart attack or heart failure. Continue antibiotics (Augmentin and azithromycin as I can see on the medication list from
[facility].
Interventions
Interventions:
*Risk Screen - Suicide Last Done: 10/04/25 14:57
*General Assessment Last Done: 10/04/25 14:57
*Neglect/Abuse Screening Last Done: 10/04/25 14:57
*ED- Fall Risk Assessment Last Done: 10/04/25 14:57
*ED COVID-19 Vaccine History Last Done: 10/04/25 14:57
*ED Influenza Vaccine History Last Done: 10/04/25 14:57
ED- Cardiac Assessment Last Done: 10/04/25 15:02
ED- Pulmonary Assessment Last Done: 10/04/25 15:02
Discharge Date and Time
Print Language: JORDANIAN
[2025-10-04 15:07] LABS: Hematocrit 35.1 % (37.0-47.0); Hemoglobin 11.3 g/dL (12.0-16.0); Mean Corp Hgb Conc. 32.2 g/dL (33.0-37.0); Mean Corpuscular Volume 91.4 fL (81.0-99.0); Nucleated Red Blood Cells % 0 %; Platelet Count 155 10^3/uL (130-400); Red Cell Dist. Width 13.2 % (11.5-14.5)
[2025-10-04 15:28] LABS: ALT (SGPT) 24 U/L (0-35); AST (SGOT) 16 U/L (14-36); Albumin 4.1 g/dl (3.5-5.0); Alkaline Phosphatase 49 U/L (38-126); Blood Urea Nitrogen 16 mg/dl (7-17); Calcium 9.5 mg/dl (8.4-10.2); Carbon Dioxide 31 mmol/L (22-30); Chloride 97 mmol/L (98-107); Estimated Creatinine Clearance 122 ml/min; Glucose 298 mg/dl (70-99); Potassium 4.7 mmol/L (3.5-5.1); Sodium 131 mmol/L (135-145); Total Protein 6.3 g/dl (6.3-8.2); eGFR > 60.00
[2025-10-04] MEDS: DUONEB 3 ML INH (15:35)
[2025-10-04 15:39] LABS: Troponin I < 0.012 ng/ml
[2025-10-04 16:00] VITALS: BP 113/80
[2025-10-04 17:00] VITALS: BP 119/70
[2025-10-04] MEDS: ZITHROMAX 500 MG PO (17:15)
[2025-10-04] MEDS: AUGMENTIN 875 MG/125 MG 1 TABLET PO (17:15)
[2025-10-04 18:00] VITALS: BP 123/65
[2025-10-04] MEDS: TYLENOL 1000 MG PO (18:01)
== END 2025-10-04 19:31 | disposition home or self-care (01) ==
LOC: EMR 14:52
PROVIDERS: Emergency Medicine; EMERGENCY PHYSICIAN Emergency Medicine; FAMILY PHYSICIAN Family Medicine
DX: J18.9 Pneumonia, unspecified organism (principal); J44.0 Chronic obstructive pulmonary disease with (acute) lower respiratory infection; E03.9 Hypothyroidism, unspecified; E11.65 Type 2 diabetes mellitus with hyperglycemia; E78.00 Pure hypercholesterolemia, unspecified; G89.29 Other chronic pain; I10 Essential (primary) hypertension; I25.10 Atherosclerotic heart disease of native coronary artery without angina pectoris; Z79.01 Long term (current) use of anticoagulants; Z79.84 Long term (current) use of oral hypoglycemic drugs; Z99.81 Dependence on supplemental oxygen; Z93.3 Colostomy status; C91.10 Chronic lymphocytic leukemia of B-cell type not having achieved remission; I48.91 Unspecified atrial fibrillation
CPT/HCPCS: 94640; 99285; 71045; 80053; 83880; 84484; 85025; 93005

== ENCOUNTER → 2025-11-29 07:01 | Outpatient (REF) | payer MEDICARE, OTHER, SELFPAY ==
--- NOTE | 2025-11-29 08:13 | CARDSERVDEF ---
Echocardiogram with Definity completed after protocol screening completed. Allergies verified.
Patent IV site: __new start by VAT, 1st attempt, 22P LFA___
IV site flushed with 0.9% NaCl pre and post administration.
Diluted bolus method utilized to enhance visualization of ventricular lozoya.
Total volume given: __3.5__ mL
site dcd at completion of test.
Patient tolerated all procedures well without complications.
== END ==
LOC: RCS 07:01
PROVIDERS: ATTENDING PHYSICIAN Nurse Practitioner Adult Health; FAMILY PHYSICIAN Family Medicine
DX: J96.21 Acute and chronic respiratory failure with hypoxia (principal); Z99.81 Dependence on supplemental oxygen; R06.02 Shortness of breath
CPT/HCPCS: 93306; Q9957